=== PATIENT | female | born 2005 | race Caucasian/White ===

== ENCOUNTER → 2023-11-15 | Emergency (ER) | payer SELFPAY ==
[~2023-11-15] MED LIST: KETOROLAC 30 MG/ML INJ ONE; NA CHLORIDE 0.9% 1,000 ML ONE; ONDANSETRON 4 MG/2 ML VIAL ONE
[2023-11-15 13:26] LABS: Absolute Lymphocytes (CBC) 3.1 K/uL (0.7-4.9); Hematocrit 41.6 % (36.0-45.0); Lymphocytes % 28.5 % (15.3-44.8); MCV 82.5 fL (80-100); MPV 7.2 fL (7.6-11.3); Platelets 426 thou/uL (152-406); RBC Red Blood Cell Count 5.04 M/uL (3.86-4.86)
[2023-11-15 13:29] LABS: Specific Gravity 1.028 (1.005-1.030)
[2023-11-15 13:31] LABS: Specific Gravity 1.028 (1.005-1.030); Urine Bacteria <20 /HPF (<20); Urine Bilirubin NEGATIVE (Negative); Urine Blood Negative (Negative); Urine Clarity Extremely Turbid (Clear); Urine Color Yellow (Yellow); Urine Glucose NEGATIVE (Negative); Urine Mucus Slight /HPF (None Seen); Urine Protein TRACE (Negative); Urine RBC <5 /HPF (None Seen); Urine Urobilinogen Normal (Normal); Urine pH 5.5 (5.0-7.0)
[2023-11-15 13:52] LABS: Albumin 3.1 g/dL (3.4-5.0); Bilirubin Total 0.9 mg/dL (0.2-1.0); Potassium 3.5 mEq/L (3.5-5.1); Protein, Total 7.1 g/dL (6.4-8.2)
--- NOTE | 2023-11-15 15:17 | RAD REPORT ---
EXAM DESCRIPTION: US - Transvaginal OB - 11/15/2023 2:01 pm CLINICAL HISTORY: with vaginal bleeding COMPARISON: None. FINDINGS: The uterus is retroverted and measures 6 x 4 x 4 centimeters. 10 millimeter gestational sac. Yolk sac seen. Foetal pole nonvisualized Ovaries are normal in size and echotexture.. The right and left adnexa unremarkable No significant free fluid IMPRESSION: Intrauterine with an estimated gestational age 5 weeks 5 days LESLIE 07/12/2024. pole not visualized probably secondary to the early gestation. Follow-up endovaginal sonogram i n 1 week would be helpful for re-evaluation
--- NOTE | 2023-11-15 18:08 | ER ---
Nurse's Notes [facility] Name: Corrie Florian Age: 18 yrs Sex: Female : 2005 Arrival Date: 11/15/2023 Time: 12:50 Bed 20 Private MD: Diagnosis: Less than 8 weeks gestation of Presentation: 11/15 12:59 Chief complaint: Patient states: Abdominal pain with N/V started Monday night. No ll1 fever. Coronavirus screen: Vaccine status: Patient reports receiving the 2nd dose of the covid vaccine. Client denies travel out of the [place] in the last 14 days. diarrhea, fatigue, headache, nausea, vomiting. Ebola Screen: Patient denies travel to an Ebola-affected area in the 21 days before illness onset. Initial Sepsis Screen: Does the patient meet any 2 criteria? No. Patient's initial sepsis screen is negative. Does the patient have a suspected source of infection? No. Patient's initial sepsis screen is negative. Risk Assessment: Do you want to hurt yourself or someone else? Patient reports no desire to harm self or others. Onset of symptoms was November 13, 2023. 12:59 Method Of Arrival: Ambulatory 1 12:59 Acuity: RADHA 3 ll1 Triage Assessment: 12:59 General: Appears uncomfortable, ill, Behavior is calm, cooperative, appropriate for 1 age. Pain: Complains of pain in abdomen Quality of pain is described as aching, crampy. GI: Reports lower abdominal pain, cramping, nausea, vomiting. Historical: - Allergies: 12:58 Amoxicillin; ll1 12:58 nasal spray-unkown; ll1 - PMHx: 12:58 None; ll1 - PSHx: 12:58 Tonsillectomy; septum repair; ll1 - Immunization history:: Adult Immunizations up to date. - Social history:: Smoking status: Patient denies any tobacco usage or history of. Screenin:28 [facility] ED Fall Risk Assessment (Adult) History of falling in the last 3 months, db including since admission No falls in past 3 months (0 pts) Confusion or Disorientation No (0 pts) Intoxicated or Sedated No (0 pts) Impaired Gait No (0 pts) Mobility Assist Device Used No (0 pt) Altered Elimination No (0 pt) Score/Fall Risk Level 0 - 2 = Low Risk Oriented to surroundings, Maintained a safe environment. Abuse screen: Denies threats or abuse. Denies injuries from another. Nutritional screening: No deficits noted. Tuberculosis screening: No symptoms or risk factors identified. Assessment: 13:26 Reassessment: Patient appears in no apparent distress at this time. Patient and/or db family updated on plan of care and expected duration. Pain level reassessed. Patient is alert, oriented x 3, equal unlabored respirations, skin warm/dry/pink. PATIENT COMPLAINS OF LOWER ABDOMINAL CRAMPING STARTED YESTERDAY. TOOK TYLENOL. General: Appears in no apparent distress. comfortable, Behavior is calm, cooperative. Pain: Complains of pain in left lower quadrant and right lower quadrant. Neuro: Level of Consciousness is awake, alert, obeys commands, Oriented to person, place, time, situation. Respiratory: Airway is patent Respiratory effort is even, unlabored, Respiratory pattern is regular, symmetrical. GI: Bowel sounds present X 4 quads. Abd is soft Abd is non tender. 14:28 Reassessment: No changes from previously documented assessment. Patient and/or family ll1 updated on plan of care and expected duration. Pain level reassessed. Vital Signs: 12:59 BP 133 / 87; Pulse 99; Resp 17; Temp 98.2; Pulse Ox 100% ; Weight 90.72 kg; Height 5 ll1 ft. 3 in. ; Pain 5/10; 15:15 BP 121 / 67; Pulse 81; Resp 16; Pulse Ox 100% ; nj1 16:15 BP 110 / 68; Pulse 71; Resp 16; Pulse Ox 99% on R/A; nj1 17:30 BP 122 / 68; Pulse 76; Resp 17; Pulse Ox 99% ; nj1 12:59 Body Mass Index 35.43 (90.72 kg, 160.02 cm) ll1 12:59 Pain Scale: Adult ll1 ED Course: 12:54 Patient arrived in ED. mg5 12:56 Daly Montano FNP-C is [facility]. kb 12:56 Kd Arguello MD is Attending Physician. kb 13:01 Triage completed. ll1 13:01 Arm band placed on. ll1 13:17 Initial lab(s) drawn, by me, sent to lab. Inserted saline lock: 20 gauge in left aw1 antecubital area, using aseptic technique. 13:20 CBC with Diff Sent. aw1 13:20 CMP Sent. aw1 13:20 Lipase Sent. aw1 13:20 Test, Urine Sent. aw1 13:20 Urinalysis w/ reflexes Sent. aw1 13:24 Barbara Oleary, RN is Primary Nurse. db 13:27 Patient has correct armband on for positive identification. db 14:03 US Transvaginal Ob In Process Unspecified. EDMS 14:28 Patient placed in an exam room, on a stretcher. ll1 16:55 IV discontinued, intact, bleeding controlled, No redness/swelling at site. Pressure aw1 dressing applied. Inserted saline lock: 22 gauge in right antecubital area, using aseptic technique. 18:08 Kd Arguello MD is Referral Physician. kb 18:15 Provided Education on: discharge instructions. nj1 18:15 No provider procedures requiring assistance completed. nj1 18:15 IV discontinued, intact, bleeding controlled. nj1 Administered Medications: 13:20 Drug: NS 0.9% IV 1000 ml IV at 1 bolus Per protocol; 1000 mL bolus Route: IV; Rate: 1 db bolus; Site: right antecubital; 14:31 Follow up: Response: No adverse reaction; IV Status: Completed infusion; IV Intake: ll1 1000ml 13:20 Drug: TORadol - Ketorolac IVP 15 mg IVP once Route: IVP; Site: right antecubital; db 14:31 Follow up: Response: No adverse reaction ll1 13:20 Drug: Ondansetron IVP 4 mg IVP once; over 2 minutes Route: IVP; Site: right antecubital;db 14:31 Follow up: Response: No adverse reaction ll1 Medication: 18:15 VIS not applicable for this client. nj1 Intake: 14:31 IV: 1000ml; Total: 1000ml. ll1 Outcome: 18:08 Discharge ordered by . kb 18:15 Discharged to home ambulatory, nj1 18:15 Condition: stable 18:15 Discharge instructions given to patient, Instructed on discharge instructions, follow up and referral plans. Demonstrated understanding of instructions, follow-up care, 18:41 Patient left the ED. nj1 Signatures: Dispatcher [employer] EDGA Daly Montano, PROOF MACHINE OPERATOR SUPERVISOR-C PROOF MACHINE OPERATOR SUPERVISOR-Lisa Cedillo RN RN ll1 Barbara Oleary, RN RN db Bhakti Bonds, RN RN nj1 Robinson, Arina [email or web address] Rin Escalante mg5
--- NOTE | 2023-11-15 18:08 | EDPHYS ---
Physician Documentation [facility] Name: Corrie Florian Age: 18 yrs Sex: Female : 2005 Arrival Date: 11/15/2023 Time: 12:50 Bed 20 Private MD: ED Physician Kd Arguello HPI: 11/15 13:26 This 18 yrs old Female presents to ER via Ambulatory with complaints of Abdominal kb Cramping. 13:26 Pt is a 18 year old female who presents for lower abd cramping that has been kb intermittent for about a month, then pain became more severe and constant last night. Reports nausea and diarrhea. Denies fever. States she had one episode of vomiting 3 days ago. Denies urinary symptoms, vaginal bleeding/discharge. . Historical: - Allergies: 12:58 Amoxicillin; ll1 12:58 nasal spray-unkown; ll1 - PMHx: 12:58 None; ll1 - PSHx: 12:58 Tonsillectomy; septum repair; ll1 - Immunization history:: Adult Immunizations up to date. - Social history:: Smoking status: Patient denies any tobacco usage or history of. ROS: 13:10 Constitutional: Negative for fever, chills, and weight loss, kb 13:10 Abdomen/GI: Positive for abdominal pain, nausea, diarrhea, 13:10 All other systems are negative, Exam: 13:10 Constitutional: This is a well developed, well nourished patient who is awake, alert, kb and in no acute distress. Head/Face: Normocephalic, atraumatic. ENT: Moist Mucous membranes Cardiovascular: Regular rate Respiratory: Respirations even and unlabored. No increased work of breathing. Talking in full sentences Skin: Warm, dry with normal turgor. Normal color. MS/ Extremity: Pulses equal, no cyanosis. Neurovascular intact. Full, normal range of motion. Neuro: Awake and alert, GCS 15, oriented to person, place, time, and situation. Moves all extremities. Normal gait. 13:10 Abdomen/GI: Inspection: abdomen appears normal, Bowel sounds: normal, Palpation: soft, in all quadrants, mild abdominal tenderness, in the suprapubic area, right lower quadrant and left lower quadrant, Vital Signs: 12:59 BP 133 / 87; Pulse 99; Resp 17; Temp 98.2; Pulse Ox 100% ; Weight 90.72 kg; Height 5 ll1 ft. 3 in. ; Pain 5/10; 15:15 BP 121 / 67; Pulse 81; Resp 16; Pulse Ox 100% ; nj1 16:15 BP 110 / 68; Pulse 71; Resp 16; Pulse Ox 99% on R/A; nj1 17:30 BP 122 / 68; Pulse 76; Resp 17; Pulse Ox 99% ; nj1 12:59 Body Mass Index 35.43 (90.72 kg, 160.02 cm) ll1 12:59 Pain Scale: Adult ll1 MDM: 13:02 Patient medically screened. kb 13:10 Data reviewed: vital signs, nurses notes. kb 13:41 ED course: Toradol given prior to urine result. Pt had stated there was no kb chance of during initial exam. Pt educated on positive result, CT cancelled and US ordered. . 18:08 Differential diagnosis: non-specific abd pain, urinary tract infection, . kb Counseling: I had a detailed discussion with the patient and/or guardian regarding the historical points, exam findings, and any diagnostic results supporting the discharge/admit diagnosis, lab results, radiology results, the need for outpatient follow up, an OB/Gyne specialist, to return to the emergency department if symptoms worsen or persist or if there are any questions or concerns that arise at home. 11/15 13:05 Order name: CBC with Diff; Complete Time: 13:27 [place] 11/15 13:05 Order name: CMP; Complete Time: 13:53 [place] 11/15 13:05 Order name: Lipase; Complete Time: 13:53 [place] 11/15 13:05 Order name: Test, Urine; Complete Time: 13:32 [place] 11/15 13:05 Order name: Urinalysis w/ reflexes; Complete Time: 13:43 [place] 11/15 13:34 Order name: Abo/rh Typing; Complete Time: 17:40 kb 11/15 13:34 Order name: Quantitative Hcg; Complete Time: 17:54 kb 11/15 13:44 Order name: Urine Culture EDWV 11/15 13:34 Order name: US Transvaginal Ob; Complete Time: 15:19 kb 11/15 13:05 Order name: IV Saline Lock; Complete Time: 13:19 1 01/10 13:05 Order name: Labs collected and sent; Complete Time: 13:20 ll1 Administered Medications: 13:20 Drug: NS 0.9% IV 1000 ml IV at 1 bolus Per protocol; 1000 mL bolus Route: IV; Rate: 1 db bolus; Site: right antecubital; 14:31 Follow up: Response: No adverse reaction; IV Status: Completed infusion; IV Intake: ll1 1000ml 13:20 Drug: TORadol - Ketorolac IVP 15 mg IVP once Route: IVP; Site: right antecubital; db 14:31 Follow up: Response: No adverse reaction ll1 13:20 Drug: Ondansetron IVP 4 mg IVP once; over 2 minutes Route: IVP; Site: right antecubital;db 14:31 Follow up: Response: No adverse reaction ll1 Disposition: 11/16 06:58 Co-signature as Attending Physician, Kd Arguello MD I reviewed the patient's care rn provided by the Advanced Practice Provider and agree with the diagnosis and treatment plan. Disposition Summary: 11/15/23 18:08 Discharge Ordered Notes: Location: Home kb Condition: Stable kb Diagnosis - Less than 8 weeks gestation of kb Followup: kb - With: Emergency Department - When: As needed - Reason: Worsening of condition Followup: kb - With: Private Physician - When: 2 - 3 days - Reason: Recheck today's complaints, Continuance of care, Re-evaluation by your physician Discharge Instructions: - Discharge Summary Sheet kb - First Trimester of , [id number] kb Forms: - Medication Reconciliation Form kb - Thank You Letter kb - Antibiotic Education kb - Prescription Opioid Use kb - Patient Portal Instructions kb - Leadership Thank You Letter kb Signatures: Dispatcher [employer] Daly De León, METAL FABRICATOR APPRENTICE-C METAL FABRICATOR APPRENTICE-Ckb Kd Arguello MD MD rn Lewis, Lynsay, RN RN ll1 Barbara Oleary, JESSE RN db Corrections: (The following items were deleted from the chart) 11/15 14:04 13:05 Abdomen Pelvis W Con+[id number].[id number] ordered. EDWV EDMS
[2023-11-15 22:09] VITALS: TEMP 98.2; O2SAT 99
[2023-11-15 22:22] VITALS: BP 122/68
== END ==
LOC: ER 12:50
DX: O26.891 Other specified pregnancy related conditions, first trimester (principal); Z3A.01 Less than 8 weeks gestation of pregnancy
CPT/HCPCS: 36415; 76817; 80053; 81001; 81025; 83690; 84702; 85025; 86900; 86901; 87086; 87088; J2405; J7030

== ENCOUNTER 2024-09-05 12:01 | Emergency (ER) | payer OTHER ==
--- OUTSIDE RECORDS SUMMARY | 2024-09-05 12:04 | XMS REPORT | Continuity of Care Document ---
Author Name Unknown Address [address] [facility] [address] [place] [address] [facility] [address] [facility] [address] [place] [address] Care Team Providers Care Safemaker Name Role Phone Pcp, Patient Does Not Have A Primary Care Physic ki JOCELYN YEBOAH Attending Clinician Unavailable JOCELYN YEBOAH Attending Clinician Unavailable Jocelyn Yeboah MD Attending Clinician [phone] Sergey Rivers MD Attending Clinician [phone], [facility] Attending Clinician Unavailable DORYS LEMON Attending Clinician Unavailable Doctor Unassigned, [place] Attending Clinician U TRACY Gleason Attending Clinician Unavailable TRACY QUINONES Attending Clinician Unavailable 2, [facility] Room Attending Clinician UnavailTracy Florence MD Attending Clinician [phone] Lab, Ang - Db Attending Clinician Unavailable Ultrasound, Ang-Mfm Attending Clinician Unavaila ble AMY CARDENAS Attending Clinician Unavailable AMY CARDENAS Attending Clinician Unavailable JOCELYN YEBOAH Admitting Clinician Unavailable Jocelyn Yeboah MD Admitting Clinician [phone] Payers Payer Name Policy Type Policy Number Effective Date Expirati on Date Source [facility] [id number] 2024 00:00:00 [place] [id number] 2023 00:00:00 Problems Condition Name Condition Details Condition Category Status Onset Date Resolution Date Last Treatment Date Treating Clinician Comments Source Uterine contractio ns Uterine contractio ns Disease Active 2024-0 8-28 00:00: 00 [facility] Morbid obesity with body mass index of 40.0-49.9 Morbid obesity with body mass index of 40.0-49.9 Disease Resolve d 2023-0 8-28 00:00: 00 2024-08-13 00:00:00 2024-08-13 16:05:34 [facility] Liveborn infant, of [place] , born in hospital by vaginal delivery Liveborn , of [place] , born in hospital by vaginal delivery Disease Resolve d 2023-0 8-28 00:00: 00 2024-08-13 00:00:00 2024-08-13 15:58:53 [facility] 38 weeks gestation of 38 weeks gestation of Disease Resolve d 0 2-07 00:00: 00 2024-08-13 00:00:00 2024-08-13 15:58:53 [facility] Other obesity affecting in first trimester Other obesity affecting in first trimester Disease Resolve d 0 2-07 00:00: 00 2024-08-13 00:00:00 2024-08-13 16:05:35 [facility] High-risk in first trimester High-risk in first trimester Disease Resolve d 0 2-07 00:00: 00 2024-06-18 00:00:00 2024-06-18 09:27:10 [facility] 9 weeks gestation of 9 weeks gestation of Disease Resolve d 0 2-07 00:00: 00 2024-06-04 00:00:00 2024-06-04 13:52:45 [facility] BMI 37.0-37.9, adult BMI 37.0-37.9, adult Disease Resolve d 2-07 00:00: 00 2024-06-04 00:00:00 2024-06-04 13:52:52 [facility] Allergies, Adverse Reactions, Alerts Allergy Name Allergy Type Status Severity Reaction(s) Onset Date Inactive Date Treating Clinician Comments Source AMOXICIL JOZEF DRUG INGREDI Active Other-Cmnt 2-07 00:00: 00 [facility] CAT DANDER DRUG INGREDI Active ITCHING 2023-0 2-07 00:00: 00 [facility] DOG DANDER DRUG INGREDI Active ITCHING 2023-0 2-07 00:00: 00 [facility] FLUTICAS ONE FUROATE DRUG INGREDI Active Other-Cmnt 2023-0 2-07 00:00: 00 [facility] HOUSE DUST DRUG INGREDI Active ITCHING 2023-0 2-07 00:00: 00 [facility] IBUPROFE N DRUG INGREDI Active Other-Cmnt 2023-0 2-07 00:00: 00 [facility] POLLEN EXTRACTS DRUG INGREDI Active ITCHING 2023-0 2-07 00:00: 00 [facility] Amoxicil jozef Drug Allergy Active Other - See comments 2023-0 2- 00:00: 00 [facility] Cat Dander Drug Allergy Active Rash 2023-0 2-07 00:00: 00 [facility] Dog Dander Drug Allergy Active Rash 2023-0 2-07 00:00: 00 [facility] Fluticas one Furoate Drug Allergy Active Other - See comments 2023-0 2-07 00:00: 00 [facility] House Dust Drug Allergy Active Itching 2023-0 2-07 00:00: 00 [facility] Ibuprofe n Drug Allergy Active Other - See comments 2023-0 2-07 00:00: 00 [facility] Pollen Extracts Drug Allergy Active Rash 2023-0 2-07 00:00: 00 [facility] NO KNOWN ALLERGIE S Drug Class Active [facility] [place] [place] Social History Social Habit Start Date Stop Date Quantity Comments Source ASSERTION 2023-10-22 00:00:00 [facility] [place] [place] Alcoholic beverage intake 2024-07-05 00:00:00 2024-07-05 00:00:00 Ex-drinker (finding) [facility] Tobacco use and exposure 2024-07-05 00:00:00 2024-07-05 00:00:00 Smokeless tobacco non-user [facility] History of Social function 2024-07-02 00:00:00 2024-07-02 00:00:00 [facility] Alcohol intake 2024-03-06 00:00:00 2024-03-06 00:00:00 Ex-drinker (finding) [facility] Sex assigned at 2005 00:00:00 2005 00:00:00 [facility] Smoking Status Start Date Stop Date Source Tobacco smoking consumption unknown [facility] Never smoked tobacco [facility] Medications Ordered Medication Name Filled Medication Name Start Date Stop Date Current Medication? Ordering Clinician Indication Dosage Frequency Signature (SIG) Comments Components Source norethindro ne 0.35 mg tablet 2023-11 00:00: 00 Yes [id number] 1{tbl} Take 1 tablet by mouth in the morning. [facility] vitamin w/FA tablet 07-05 00:00: 00 Yes [id number] 102 1{tbl} Take 1 tablet by mouth in the morning. [facility] witch Bowen (TUCKS) 50 % topical pad 07-04 13:34: 34 Yes Topical, PRN, Starting on Mon07/04/24 at 0834, Until Discontinu ed, Routine, Pain (scale 1-3), Pain (scale 4-6), Pain (scale 7-10) [facility] HYDROcodone -acetaminop hen (NORCO 5) tablet 1 tablet 07-04 04:57: 40 Yes 1{tbl} 1 tablet, Oral, Q6HPRN, Starting on Mon07/03/24 at 2357, Until Discontinu ed, Routine, Pain (scale 7-10) [facility] acetaminoph en (TYLENOL) tablet 650 mg 07-04 04:57: 40 Yes 650mg 650 mg, Oral, Q6HPRN, Starting on Mon07/03/24 at 2357, Until Discontinu ed, Routine, Pain (scale 1-3) [facility] diphenhydrA MINE (BENADRYL) tablet 25 mg 07-04 04:57: 40 Yes 25mg [facility] ondansetron (ZOFRAN (PF)) injection 4 mg 07-04 04:57: 40 Yes 4mg [facility] simethicone (GAS RELIEF (SIMETHICON E)) chewable tablet 160 mg 07-04 04:57: 40 Yes 160mg [facility] docusate (COLACE) capsule 200 mg 07-04 04:57: 40 Yes 200mg [facility] magnesium hydroxide (MILK OF MAGNESIA) 400 mg/5 mL suspension 30 mL 07-04 04:57: 40 Yes 30mL [facility] benzocaine- menthol (DERMOPLAST ) 20-0.5 % topical spray 07-04 04:57: 39 Yes Topical, PRN, Starting on Mon07/03/24 at 2357, Until Discontinu ed, Routine, Perineum discomfort [facility] [place] [place] fentaNYL-ro pivacaine 2 mcg/mL-0.1 % (PF) in NS 200 mL epidural infusion RTU 07-04 01:48: 00 07-04 11:19 :28 No Intra-op [facility] [place] [place] FENTanyl (PF) (SUBLIMAZE) injection 100 mcg 07-04 00:25: 59 07-04 05:03 :17 No 100ug 100 mcg, Slow IV Push, Q1HPRN, Starting on Mon07/03/24 at 1925, Until Bekah 07/04/24 at 0003, Routine, Pain (scale 7-10) [facility] [place] oxytocin (PITOCIN) 30 units in NS 500 mL IV infusion 07-04 00:25: 59 07-04 05:03 :17 No 2mU/min at 2-40 mL/hr, IV Infusion, TITRATE, Starting on Mon07/03/24 at 1925, Until Bekah 07/04/24 at 0003, Routine [facility] [place] D5W-LR IV infusion 1,000 mL 07-04 00:25: 59 07-04 05:03 :17 No 1000mL at 1-125 mL/hr, IV Infusion, TITRATE, Starting on Mon07/03/24 at 1925, Until Bekah 07/04/24 at 0003, Routine [facility] vit no.124/iron /folic ( VITAMIN ORAL) 04-29 09:10: 46 04-29 00:00 :00 No Take by mouth. [facility] vitamin w/FA tablet 04-29 00:00: 00 07-05 00:00 :00 No 1{tbl} Take 1 tablet by mouth in the morning. [facility] vit no.124/iron /folic ( VITAMIN ORAL) 04-03 15:55: 20 Yes Take by mouth. [facility] vit no.124/iron /folic ( VITAMIN ORAL) 01-09 11:06: 21 Yes Take by mouth. [facility] Immunizations Ordered Immunization Name Filled Immunization Name Date Status Comments Source TDAP 2024-05-01 00:00:00 Completed [facility] TDAP 2024-05-01 00:00:00 Completed [facility] TDAP Unknown Completed [facility] TDAP Unknown Completed [facility] TDAP Unknown Completed [facility] TDAP Unknown Completed [facility] TDAP Unknown Completed [facility] TDAP Unknown Completed [facility] TDAP Unknown Completed [facility] TDAP Unknown Completed [facility] TDAP Unknown Completed [facility] TDAP Unknown Completed [facility] Vital Signs Vital Name Observation Time Observation Value Comments S ource Systolic blood pressure 2024-08-13 20:45:00 110 mm[Hg] [facility] Diastolic blood pressure 2024-08-13 20:45:00 69 mm[Hg] [facility] Heart rate 2024-08-13 20:45:00 75 /min [facility] Body temperature 2024-08-13 20:45:00 36.61 [place] [facility] Respiratory rate 2024-08-13 20:45:00 18 /min [facility] Body height 2024-08-13 20:45:00 162.6 cm [facility] Body weight 2024-08-13 20:45:00 99.292 kg [facility] BMI 2024-08-13 20:45:00 37.57 kg/m2 [facility] Systolic blood pressure 2024-07-05 14:45:00 111 mm[Hg] [facility] Diastolic blood pressure 2024-07-05 14:45:00 67 mm[Hg] [facility] Heart rate 2024-07-05 14:45:00 90 /min [facility] Body temperature 2024-07-05 14:45:00 36.56 [place] [facility] Respiratory rate 2024-07-05 14:45:00 16 /min [facility] Oxygen saturation in Arterial blood by Pulse oximetry 2024-07-05 14:45:00 98 /min [facility] Body weight 2024-07-04 00:00:00 106.142 kg [facility] BMI 2024-07-04 00:00:00 40.17 kg/m2 [facility] Body height 2024-07-03 23:49:00 162.6 cm [facility] Systolic blood pressure 2024-07-02 20:40:00 111 mm[Hg] [facility] Diastolic blood pressure 2024-07-02 20:40:00 76 mm[Hg] [facility] Heart rate 2024-07-02 20:40:00 90 /min [facility] Body temperature 2024-07-02 20:40:00 36.44 [place] [facility] Respiratory rate 2024-07-02 20:40:00 18 /min [facility] Body height 2024-07-02 20:40:00 160 cm [facility] Body weight 2024-07-02 20:40:00 107.321 kg [facility] BMI 2024-07-02 20:40:00 41.91 kg/m2 [facility] Systolic blood pressure 2024-06-25 21:31:00 115 mm[Hg] [facility] Diastolic blood pressure 2024-06-25 21:31:00 85 mm[Hg] [facility] Heart rate 2024-06-25 21:31:00 108 /min [facility] Respiratory rate 2024-06-25 21:31:00 17 /min [facility] Body height 2024-06-25 21:31:00 160 cm [facility] Body weight 2024-06-25 21:31:00 107.049 kg [facility] BMI 2024-06-25 21:31:00 41.81 kg/m2 [facility] Systolic blood pressure 2024-06-18 13:31:00 126 mm[Hg] [facility] Diastolic blood pressure 2024-06-18 13:31:00 85 mm[Hg] [facility] Heart rate 2024-06-18 13:31:00 103 /min [facility] Body temperature 2024-06-18 13:31:00 36.17 [place] [facility] Respiratory rate 2024-06-18 13:31:00 18 /min [facility] Body height 2024-06-18 13:31:00 162.6 cm [facility] Body weight 2024-06-18 13:31:00 105.688 kg [facility] BMI 2024-06-18 13:31:00 39.99 kg/m2 [facility] Systolic blood pressure 2024-06-04 16:01:00 113 mm[Hg] [facility] Diastolic blood pressure 2024-06-04 16:01:00 78 mm[Hg] [facility] Heart rate 2024-06-04 16:01:00 104 /min [facility] Body temperature 2024-06-04 16:01:00 36.22 [place] [facility] Body weight 2024-06-04 16:01:00 105.597 kg [facility] BMI 2024-06-04 16:01:00 39.96 kg/m2 [facility] Systolic blood pressure 2024-05-21 14:01:00 117 mm[Hg] [facility] Diastolic blood pressure 2024-05-21 14:01:00 80 mm[Hg] [facility] Heart rate 2024-05-21 14:01:00 112 /min [facility] Body temperature 2024-05-21 14:01:00 36.61 [place] [facility] Respiratory rate 2024-05-21 14:01:00 16 /min [facility] Body height 2024-05-21 14:01:00 162.6 cm [facility] Body weight 2024-05-21 14:01:00 103.602 kg Univ [facility] BMI 2024-05-21 14:01:00 39.20 kg/m2 [facility] Oxygen saturation in Arterial blood by Pulse oximetry 2024-05-21 14:01:00 99 /min [facility] Systolic blood pressure 2024-05-01 14:09:00 116 mm[Hg] [facility] Diastolic blood pressure 2024-05-01 14:09:00 81 mm[Hg] [facility] Heart rate 2024-05-01 14:09:00 97 /min [facility] Respiratory rate 2024-05-01 14:09:00 15 /min [facility] Body height 2024-05-01 14:09:00 160 cm [facility] Body weight 2024-05-01 14:09:00 102.105 kg [facility] BMI 2024-05-01 14:09:00 39.87 kg/m2 [facility] Systolic blood pressure 2024-04-03 21:02:00 112 mm[Hg] [facility] Diastolic blood pressure 2024-04-03 21:02:00 77 mm[Hg] [facility] Heart rate 2024-04-03 21:02:00 94 /min [facility] Respiratory rate 2024-04-03 21:02:00 18 /min [facility] Body height 2024-04-03 21:02:00 160 cm [facility] Body weight 2024-04-03 21:02:00 101.606 kg [facility] BMI 2024-04-03 21:02:00 39.68 kg/m2 [facility] Systolic blood pressure 2024-03-06 16:12:00 117 mm[Hg] [facility] Diastolic blood pressure 2024-03-06 16:12:00 83 mm[Hg] [facility] Heart rate 2024-03-06 16:12:00 94 /min [facility] Body temperature 2024-03-06 16:12:00 36.56 [place] [facility] Respiratory rate 2024-03-06 16:12:00 16 /min [facility] Body height 2024-03-06 16:12:00 160 cm [facility] Body weight 2024-03-06 16:12:00 100.699 kg [facility] BMI 2024-03-06 16:12:00 39.33 kg/m2 [facility] Systolic blood pressure 2024-02-07 15:57:00 106 mm[Hg] [facility] Diastolic blood pressure 2024-02-07 15:57:00 66 mm[Hg] [facility] Heart rate 2024-02-07 15:57:00 94 /min [facility] Body temperature 2024-02-07 15:57:00 36.72 [place] [facility] Respiratory rate 2024-02-07 15:57:00 16 /min [facility] Body height 2024-02-07 15:57:00 160 cm [facility] Body weight 2024-02-07 15:57:00 98.431 kg [facility] BMI 2024-02-07 15:57:00 38.44 kg/m2 [facility] Body weight 2024-01-10 17:05:00 95.907 kg [facility] BMI 2024-01-10 17:05:00 37.45 kg/m2 [facility] Systolic blood pressure 2024-01-10 17:05:00 93 mm[Hg] [facility] Diastolic blood pressure 2024-01-10 17:05:00 68 mm[Hg] [facility] Heart rate 2024-01-10 17:05:00 93 /min [facility] Body temperature 2024-01-10 17:05:00 36.89 [place] [facility] Respiratory rate 2024-01-10 17:05:00 16 /min [facility] Body height 2024-01-10 17:05:00 160 cm [facility] Systolic blood pressure 2023-12-13 20:40:00 96 mm[Hg] [facility] Diastolic blood pressure 2023-12-13 20:40:00 66 mm[Hg] [facility] Heart rate 2023-12-13 20:40:00 87 /min [facility] Body temperature 2023-12-13 20:40:00 36.78 [place] [facility] Respiratory rate 2023-12-13 20:40:00 16 /min [facility] Body height 2023-12-13 20:40:00 160 cm [facility] Body weight 2023-12-13 20:40:00 95.8 kg [facility] BMI 2023-12-13 20:40:00 37.41 kg/m2 [facility] Oxygen saturation in Arterial blood by Pulse oximetry 2023-12-13 20:40:00 97 /min [facility] Procedures Procedure Date / Time Performed Performing Clinician Source POCT TEST 2024-08-13 00:00:00 Adum, Jocelyn Hernadez [facility] CBC WITH DIFF 2024-07-04 09:12:00 Adum, Jocelyn Maria [facility] CENTRAL NEURAXIAL BLOCK 2024-07-04 02:45:00 Sergey Rivers [facility] CBC WITH DIFF 2024-07-04 00:47:00 Adum, Jocelyn Hernadez [facility] HEPATITIS B SURFACE ANTIGEN 2024-07-04 00:47:00 Adum, Jocelyn Hernadez [facility] HB ABO GROUPING 2024-07-04 00:47:00 Adum, Jocelyn Lazar [facility] ADC OR CAITLIN ONLY - RPR 2024-07-04 00:47:00 Adum, Jocelyn Hernadez [facility] HIV 1/2 AG-AB WITH REFLEX 2024-07-04 00:47:00 Adum, Jocelyn Hernadez [facility] POCT URINALYSIS W/O SPECIFIC GRAVITY 2024-07-02 00:00:00 Adum, Jocelyn Hernadez [facility] POCT URINALYSIS W/O SPECIFIC GRAVITY 2024-06-25 00:00:00 Adum, Jocelyn Hernadez [facility] >14 WEEKS US LIMITED 2024-06-18 14:31:28 Adum, Jocelyn Hernadez [facility] POCT URINALYSIS W/O SPECIFIC GRAVITY 2024-06-18 00:00:00 Adum, Jocelyn Hernadez [facility] POCT URINALYSIS W/O SPECIFIC GRAVITY 2024-06-04 00:00:00 Dorys Lemon [facility] POCT URINALYSIS W/O SPECIFIC GRAVITY 2024-05-21 00:00:00 Adum, Jocelyn Hernadez [facility] TDAP VACCINE, >11 YRS, IM 2024-05-01 14:19:11 Adum, Jocelyn Hernadez [facility] POCT URINALYSIS W/O SPECIFIC GRAVITY 2024-05-01 00:00:00 Adum, Jocelyn Hernadez [facility] SECOND AND THIRD TRIMESTER ULTRASOUND 2024-04-08 18:29:00 Adum, Jocelyn Hernadez [facility] POCT URINALYSIS W/O SPECIFIC GRAVITY 2024-04-03 00:00:00 Adum, Jocelyn Hernadez [facility] SECOND AND THIRD TRIMESTER ULTRASOUND 2024-03-08 15:08:25 Adum, Jocelyn Hernadez [facility] POCT URINALYSIS W/O SPECIFIC GRAVITY 2024-03-06 00:00:00 Adum, Jocelyn Hernadez [facility] POCT URINALYSIS W/O SPECIFIC GRAVITY 2024-02-07 00:00:00 Adum, Jocelyn Hernadez [facility] SCANNED LAB RESULTS 2024-01-10 06:01:00 Doctor Julia ruelas, [place] [facility] POCT URINALYSIS W/O SPECIFIC GRAVITY 2024-01-10 00:00:00 Adum, Jocelyn Hernadez [facility] US OB TRANSVAGINAL 2023-12-13 21:35:07 Adum, Jocelyn L [facility] ASSIGNMENT OF BENEFITS 2023-12-13 20:14:13 Docto r Unassigned, [place] [facility] POCT TEST 2023-12-13 00:00:00 Obinna Jocelyn Satya [facility] POCT URINALYSIS W/O SPECIFIC GRAVITY 2023-12-13 00:00:00 Obinna Jocelyn L [facility] Encounters Start Date/Time End Date/Time Encounter Type Admission Type Attending [facility] Facility Care Department Encounter ID Source 2024-07-02 16:37:02 Outpatient P ADJOCELYN MEADE [facility] YELITZA [id number] [facility] 2024-07-24 00:00:00 2024-08-24 18:21:35 Patient Secure Msg Jocelyn Yeboah [facility] [id number] 350.1.13.10 4.2.7.2.686 [id number] 134 [id number] [facility] 2024-08-13 16:00:00 2024-08-13 16:17:33 Outpatient R ADJOCELYN MEADE [facility] [id number] [facility] 2024-08-13 16:00:00 2024-08-13 16:17:33 Routine Visit Obinna Jocelyn Hernadez [facility] 1..840.114 350.1.13.10 4.2.7.2.686 [id number] [facility] 2024-06-27 00:00:00 2024-08-03 18:28:28 Patient Secure Msg Jocelyn Yeboah [facility] [id number] 350.1.13.10 4.2.7.2.686 [id number] 134 [id number] [facility] 2024-07-03 18:50:00 2024-07-05 12:25:00 Inpatient X ADJOCELYN MEADE [facility] YELITZA [id number] [facility] 2024-07-03 18:50:00 2024-07-05 12:25:00 Hospital Encounter Jocelyn Yeboah [facility] [id number] 350.1.13.10 4.2.7.2.686 [id number] [facility] 2024-07-03 00:00:00 2024-07-04 07:48:22 Patient Secure Msg AdJocelyn [facility] 1.2840.114 350.1.13.10 4.2.7.2.686 [id number] 134 [id number] [facility] 2024-07-03 20:40:00 2024-07-04 01:19:00 Anesthesia Event Sergey Rivers [facility] [id number] 350.1.13.10 4.2.7.2.686 [id number] [facility] 2024-07-02 15:30:00 2024-07-02 16:13:51 Outpatient R ADJOCELYN MEADE [facility] [id number] [facility] 2024-07-02 15:30:00 2024-07-02 16:13:51 [facility] 1.2840.114 350.1.13.10 4.2.7.2.686 [id number] [facility] 2024-06-25 16:15:00 2024-06-25 16:52:19 Outpatient R JOCELYN YEBOAH [facility] [id number] [facility] 2024-06-25 16:15:00 2024-06-25 16:52:19 [facility] 1.2840.114 350.1.13.10 4.2.7.2.686 [id number] [facility] 2024-06-18 13:00:00 2024-06-18 13:00:00 Outpatient R JOCELYN YEBOAH VIVIAN [facility] [id number] [facility] 2024-06-18 09:30:00 2024-06-18 09:45:00 Occupational Health And Safety Adviser Visit 2, Adc Lab Jocelyn Yeboah 2, Adc Lab [facility] 1.2.840.114 350.1.13.10 4.2.7.2.686 [id number] [facility] 2024-06-18 08:45:00 2024-06-18 09:27:16 Outpatient R JOCELYN YEBOAH [facility] [id number] [facility] 2024-06-18 08:45:00 2024-06-18 09:27:16 Routine Visit Jocelyn Yeboah [facility] 1.2.840.114 350.1.13.10 4.2.7.2.686 [id number] [facility] 2024-06-04 11:00:00 2024-06-04 11:10:29 Outpatient R DORYS LEMON [facility] [id number] [facility] 2024-06-04 11:00:00 2024-06-04 11:10:29 Routine Visit Dorys Lemon [facility] 1.2.840.114 350.1.13.10 4.2.7.2.686 [id number] [facility] 2024-04-26 00:00:00 2024-06-01 18:25:49 Patient Secure Msg Doctor Unassigned, [place] [facility] 1.2.840.114 350.1.13.10 4.2.7.2.686 [id number] [facility] 2024-05-21 08:45:00 2024-05-21 09:26:16 Outpatient R ADJOCELYN MEADE [facility] [id number] [facility] 2024-05-21 08:45:00 2024-05-21 09:26:16 Routine Visit AdJocelyn meade [facility] 1.840.114 350.1.13.10 4.2.7.2.686 [id number] [facility] 2024-05-15 10:00:00 2024-05-15 10:00:00 Outpatient R JOCELYN YEBOAH [facility] [id number] [facility] 2024-05-01 09:15:00 2024-05-01 09:29:18 Outpatient R OBINNAJOCELYN INDRADESHAUN [facility] [id number] [facility] 2024-05-01 09:15:00 2024-05-01 09:29:18 Routine Visit IndraJocelyn meade [facility] 1.0.114 350.1.13.10 4.2.7.2.686 [id number] [facility] 2024-04-25 00:00:00 2024-04-29 09:13:16 Patient Secure Msg IndraJocelyn meade [facility] 1.0.114 350.1.13.10 4.2.7.2.686 [id number] 134 [id number] [facility] 2024-04-08 13:00:00 2024-04-08 13:30:28 Outpatient P TRACY QUINONES KARIN [facility] [id number] [facility] 2024-04-08 13:00:00 2024-04-08 13:30:28 Occupational Health And Safety Adviser Visit 2, [facility] Room Tracy Quinones [facility] MATERNAL & CHILD [facility] 1.840.114 350.1.13.10 4.2.7.2.686 [id number] [facility] 2024-04-08 09:45:00 2024-04-08 10:00:00 Occupational Health And Safety Adviser Visit Lab, Edvin Quinones [facility] 1..114 350.1.13.10 4.2.7.2.686 [id number] [facility] 2024-04-08 08:00:00 2024-04-08 08:30:12 Occupational Health And Safety Adviser Visit [facility] 1..114 350.1.13.10 4.2.7.2.686 [id number] [facility] 2024-04-03 16:00:00 2024-04-03 16:18:28 Outpatient JOCELYN HUSSEIN [facility] [id number] [facility] 2024-04-03 16:00:00 2024-04-03 16:18:28 Routine Visit Jocelyn Yeboah [facility] 1..114 350.1.13.10 4.2.7.2.686 [id number] [facility] 2024-04-03 11:00:00 2024-04-03 11:00:00 Outpatient JOCELYN HUSSEIN [facility] [id number] [facility] 2024-03-08 08:45:00 2024-03-08 09:53:25 Outpatient AMY MARQUEZ AMY [facility] [id number] [facility] 2024-03-08 08:45:00 2024-03-08 09:53:25 Occupational Health And Safety Adviser Visit Ultrasound, Amy Velasquez [facility] MATERNAL & CHILD [facility] 1.2.840.114 350.1.13.10 4.2.7.2.686 [id number] [facility] 2024-03-08 00:00:00 2024-03-08 00:00:00 Case Management [facility], [facility] 1.2.840.114 350.1.13.10 4.2.7.2.686 [id number] [facility] 2024-03-06 11:15:00 2024-03-06 11:22:58 Outpatient R ADUM, [facility] [id number] [facility] 2024-03-06 11:15:00 2024-03-06 11:22:58 Routine Visit Ad, [facility] 1.2840.114 350.1.13.10 4.2.7.2.686 [id number] [facility] 2024-02-07 12:15:00 2024-02-07 12:30:00 Occupational Health And Safety Adviser Visit Lab, Ang - Db Addeshaun, [facility] 1.2840.114 350.1.13.10 4.2.7.2.686 [id number] [facility] 2024-02-07 12:15:00 2024-02-07 12:15:00 Outpatient R ADUM, [facility] [id number] [facility] 2024-02-07 11:00:00 2024-02-07 11:28:41 Routine Visit Ad, [facility] 1.2840.114 350.1.13.10 4.2.7.2.686 [id number] [facility] 2024-01-19 00:00:00 2024-01-19 00:00:00 Telephone Adum, [facility] 1.2.840.114 350.1.13.10 4.2.7.2.686 [id number] [facility] 2024-01-18 00:00:00 2024-01-18 00:00:00 Telephone Adum, [facility] 1.2.840.114 350.1.13.10 4.2.7.2.686 [id number] [facility] 2024-01-10 12:00:00 2024-01-10 12:00:00 Occupational Health And Safety Adviser Visit Lab, Edvin - Db Ob[facility] 1.2840.114 350.1.13.10 4.2.7.2.686 [id number] [facility] 2024-01-10 11:00:00 2024-01-10 11:36:53 Outpatient R ADDESHAUN [facility] [id number] [facility] 2024-01-10 11:00:00 2024-01-10 11:36:53 Routine Visit Addeshaun, [facility] 1.2840.114 350.1.13.10 4.2.7.2.686 [id number] [facility] 2024-01-10 00:00:00 2024-01-10 00:00:00 Orders Only Doctor Unassigned, [place] [facility] 1.840.114 350.1.13.10 4.2.7.2.686 [id number] [facility] 2024-01-03 08:00:00 2024-01-03 08:00:52 Outpatient R ADDEHSAUN [facility] [id number] [facility] 2024-01-03 08:00:00 2024-01-03 08:00:52 Occupational Health And Safety Adviser Visit Lab, Ang - Db Obinna, [facility] 1.840.114 350.1.13.10 4.2.7.2.686 [id number] [facility] 2024-01-03 00:00:00 2024-01-03 00:00:00 Patient Secure Msg Doctor Unassigned, [place] [facility] 1.2840.114 350.1.13.10 4.2.7.2.686 [id number] [facility] 2023-12-13 14:30:00 2023-12-13 15:32:46 Outpatient R OBINNA JOCELYN [facility] [id number] [facility] 2023-12-13 14:30:00 2023-12-13 15:32:46 Initial Visit Jocelyn Yeboah [facility] 1.840.114 350.1.13.10 4.2.7.2.686 [id number] [facility] 2023-12-13 00:00:00 2023-12-13 00:00:00 Orders Only Doctor Unassigned, [place] [facility] 1.20.114 350.1.13.10 4.2.7.2.686 [id number] [facility] 2023-12-12 14:30:00 2023-12-12 14:30:00 Outpatient R JOCELYN YEBOAH [facility] [id number] [facility] Results Test Description Test Time Test Comments Results Result Co mments Source [facility] with [id number] 09:53:34* Test Item Value Reference Range Interpretation Comme nts WBC (test code = 6690-2) 17.89 4.30-11.10 H RBC (test code = 789-8) 4.64 3.93-5.25 HGB (test code = 718-7) 12.7 g/dL 11.6-15.0 HCT (test code = 4544-3) 38.8 % 35.7-45.2 MCV (test code = 787-2) 83.6 fL 80.6-95.5 MCH (test code = 785-6) 27.4 pg 25.9-32.8 MCHC (test code = 786-4) 32.7 g/dL 31.6-35.1 RDW-SD (test code = 72732-8) 43.1 fL 39.0-49.9 RDW-CV (test code = 788-0) 14.2 % 12.0-15.5 PLT (test code = 777-3) 391 166-358 H MPV (test code = 20656-0) 9.4 fL 9.5-12.9 L NRBC/100 WBC (test code = 2729061751) 0.0 0.0-10.0 NRBC x10^3 (test code = 4214087306) See_Comment [Automated message] The system which generated this result transmitted reference range: 10*3/?L. The reference range was not used to interpret this result as normal/abnormal. GRAN MAT (NEUT) % (test code = 770-8) 81.2 % IMM GRAN % (test code = 6082388531) 0.70 % LYMPH % (test code = 736-9) 11.7 % MONO % (test code = 5905-5) 6.2 % EOS % (test code = 713-8) 0.0 % BASO % (test code = 706-2) 0.2 % GRAN MAT x10^3(ANC) (test code = 4230585950) 14.52 10*3/uL 1.88-7.09 H IMM GRAN x10^3 (test code = 7319959482) 0.12 10*3/uL 0.00-0.06 H LYMPH x10^3 (test code = 731-0) 2.10 10*3/uL 1.32-3.29 MONO x10^3 (test code = 742-7) 1.11 10*3/uL 0.33-0.92 H EOS x10^3 (test code = 711-2) 0.03-0.39 L BASO x10^3 (test code = 704-7) 0.04 10*3/uL 0.01-0.07 Lab Interpretation (test code = 22942-5) Abnormal [facility] Worth[facility]atitis B Surface [id number] 08:28:04 * Test Item Value Reference Range Interpretation Comme nts HBsAg Semi-Quantitative (matilda t code = 5195-3) 0.07 Negative [facility] Worth[facility] OR CAITLIN ONLY - [id number] 07:36:52* Test Item Value Reference Range Interpretation Comme nts RPR (Qualitative) (test code = 60948-1) Nonreactive Nonreactive Lab Interpretation (test cod e = 85074-0) Normal [facility] Worth[facility]/2 Ag-Ab with [id number] 02:45:33* Test Item Value Reference Range Interpretation Comme nts HIV Semi-quantitative (test code = 72659-3) 0.15 Negative MEAGAN (test code = MEAGAN) Non-reactive for HIV-1 antigen and HIV-1/HIV-2 antibodies. ?No laboratory evidence of HIV infection. ?Repeat in 2-4 weeks if acute HIV infection is suspected. [facility]axial [id number] 02:45:00 Sergey Rivers MD ? ? 07/03/2024 ?9:19 PM Central Neuraxial Block Date/Time: 07/03/2024 9:45 PM Performed by: Sergey Rivers [facility]ITAL[facility]horized by: Sergey Rivers MD ?Patient Location: OBReason for Block: OB request, Patient request, Labor analgesia, Surgical anesthesia and Post-op pain managementStaff: ?Anesthesiologist: Sergey Rivers MD ?Performed by: anesthesiologistPreanesthetic Checklist: patient identified, IV checked, risks and benefits explained, monitors and equipment checked, timeout performed, pre- op evaluation, site marked, anesthesia consent and ob/surgical consent verif iedProcedure: ?Type of Neuraxial: Epidural and Continuous ? Sterility Prep cap, drape, gloves, handhygiene and mask ? ?Sedation Level no sedation ?Patient Position: sitting ?Prep: Betadine and patient draped ? ?Monitoring: heart rate, continuous pulse ox, heart rate / toco and NIBP ?Location: lumbar (1-5) ?Lumbar: L2-L3 ?Approach: midline ? ?Technique: FAINA air and catheter ?Guidance with: landmark technique}Epidural/Spinal [place] and/or Catheter: ?Epidural/Spinal Kit: [employer] [place] (BD) ?Needle Type: Tuohy ?Needle Gauge: 17 G ?Needle Length: 3.5 in (8.89 cm) ?Needle Insertion Depth: 7 ?Catheter Type: multiport ? ?Catheter Size: 18 G ? ?Catheter at Skin Depth: 12 ?Number of Attempts: 1 ?Test Dose: lidocaine 1.5% with epinephrine 1-to-200,000 and negative ? ?Dose: 3 cc ? ?Catheter Securement Method: surgical tape and TegadermAssessment: ?Sensory Level: below T10 ?Lumbar: T12 ?Block Outcome: positive pain relief and successful block ? ?Procedure Assessment: patient tolerated procedure well with no complicationsNotes: ? Smooth and atraumatic, (+) Local, (+) STFUniversity of [facility] with Differential 2024-07-04 01:10:18* Test Item Value Reference Range Interpretation Comme nts WBC (test code = 6690-2) 13.44 4.30-11.10 H RBC (test code = 789-8) 4.91 3.93-5.25 HGB (test code = 718-7) 13.8 g/dL 11.6-15.0 HCT (test code = 4544-3) 41.2 % 35.7-45.2 MCV (test code = 787-2) 83.9 fL 80.6-95.5 MCH (test code = 785-6) 28.1 pg 25.9-32.8 MCHC (test code = 786-4) 33.5 g/dL 31.6-35.1 RDW-SD (test code = 91592-9) 43.6 fL 39.0-49.9 RDW-CV (test code = 788-0) 14.2 % 12.0-15.5 PLT (test code = 777-3) 412 166-358 H MPV (test code = 89717-9) 9.6 fL 9.5-12.9 NRBC/100 WBC (test code = 6856182986) 0.0 0.0-10.0 NRBC x10^3 (test code = 4658523292) See_Comment [Automated message] The system which generated this result transmitted reference range: 10*3/?L. The reference range was not used to interpret this result as normal/abnormal. GRAN MAT (NEUT) % (test code = 770-8) 76.6 % IMM GRAN % (test code = 5116412793) 0.50 % LYMPH % (test code = 736-9) 16.0 % MONO % (test code = 5905-5) 6.5 % EOS % (test code = 713-8) 0.2 % BASO % (test code = 706-2) 0.2 % GRAN MAT x10^3(ANC) (test code = 1213141235) 10.29 10*3/uL 1.88-7.09 H IMM GRAN x10^3 (test code = 1927632401) 0.07 10*3/uL 0.00-0.06 H LYMPH x10^3 (test code = 731-0) 2.15 10*3/uL 1.32-3.29 MONO x10^3 (test code = 742-7) 0.87 10*3/uL 0.33-0.92 EOS x10^3 (test code = 711-2) 0.03 10*3/uL 0.03-0.39 BASO x10^3 (test code = 704-7) 0.03 10*3/uL 0.01-0.07 Lab Interpretation (test code = 19884-4) Abnormal [facility] WorthType and Screen - ONCE [id number] 01:02:00 * Test Item Value Reference Range Interpretation Comme nts ABO & RH (test code = 20) O POSITIVE IAT (test code = 1185) Negative [facility] Worth[facility] Urinalysis w/o Specific [id number] 20:38:00* Test Item Value Reference Range Interpretation Comme nts POCT PH U (test code = 3254) n/a 5-8 POCT U LEUK EST (test code = 3263) n/a Negative - Negative POCT U NIT (test code = 3262) n/a Negative - Negati ve POCT U PROT (test code = 3259) negative Negative - Negat lang POCT U GLU (test code = 3256) normal Negative - Negati ve POCT U KETONE (test code = 3258) n/a Negative - Neg ative POCT U BLD (test code = 3257) n/a Negative - Negati ve [facility] Urinalysis w/o Specific [id number] 21:29:00* Test Item Value Reference Range Interpretation Comme nts POCT PH U (test code = 3254) n/a 5-8 POCT U LEUK EST (test code = 3263) n/a Negative - Negative POCT U NIT (test code = 3262) n/a Negative - Negati ve POCT U PROT (test code = 3259) negative Negative - Negat lang POCT U GLU (test code = 3256) negative Negative - Negati ve POCT U KETONE (test code = 3258) n/a Negative - Neg ative POCT U BLD (test code = 3257) n/a Negative - Negati ve [facility] Urinalysis w/o Specific [id number] 15:38:00* Test Item Value Reference Range Interpretation Comme nts POCT PH U (test code = 3254) n/a 5-8 POCT U LEUK EST (test code = 3263) n/a Negative - N egative POCT U NIT (test code = 3262) n/a Negative - Negati ve POCT U PROT (test code = 3259) neg Negative - Negat lang POCT U GLU (test code = 3256) neg Negative - Negati ve POCT U KETONE (test code = 3258) n/a Negative - Neg ative POCT U BLD (test code = 3257) n/a Negative - Negati ve [facility] Urinalysis w/o Specific [id number] 16:00:00* Test Item Value Reference Range Interpretation Comme nts POCT PH U (test code = 3254) n.a 5-8 POCT U LEUK EST (test code = 3263) n.a Negative - Negative POCT U NIT (test code = 3262) n.a Negative - Negati ve POCT U PROT (test code = 3259) negative Negative - Negat lang POCT U GLU (test code = 3256) negative Negative - Negati ve POCT U KETONE (test code = 3258) n.a Negative - Neg ative POCT U BLD (test code = 3257) n.a Negative - Negati ve [facility] Urinalysis w/o Specific [id number] 13:59:00* Test Item Value Reference Range Interpretation Comme nts POCT PH U (test code = 3254) n/a 5-8 POCT U LEUK EST (test code = 3263) n/a Negative - Negative POCT U NIT (test code = 3262) n/a Negative - Negati ve POCT U PROT (test code = 3259) negative Negative - Negat lang POCT U GLU (test code = 3256) negative Negative - Negati ve POCT U KETONE (test code = 3258) n/a Negative - Neg ative POCT U BLD (test code = 3257) n/a Negative - Negati ve [facility] Urinalysis w/o Specific [id number] 14:07:00* Test Item Value Reference Range Interpretation Comme nts POCT PH U (test code = 3254) n/a 5-8 POCT U LEUK EST (test code = 3263) n/a Negative - Negative POCT U NIT (test code = 3262) n/a Negative - Negati ve POCT U PROT (test code = 3259) trace Negative - Negat lang POCT U GLU (test code = 3256) negative Negative - Negati ve POCT U KETONE (test code = 3258) n/a Negative - Neg ative POCT U BLD (test code = 3257) n/a Negative - Negati ve [facility] [id number] 21:24:00* Test Item Value Reference Range Interpretation Comme nts POCT PH U (test code = 3254) N/A 5-8 POCT U LEUK EST (test code = 3263) N/A Negative - Negative POCT U NIT (test code = 3262) N/A Negative - Negati ve POCT U PROT (test code = 3259) Negative Negative - Negat lang POCT U GLU (test code = 3256) Negative Negative - Negati ve POCT U KETONE (test code = 3258) N/A Negative - Neg ative POCT U BLD (test code = 3257) N/A Negative - Negati ve [facility] Urinalysis w/o Specific [id number] 16:10:00* Test Item Value Reference Range Interpretation Comme nts POCT PH U (test code = 3254) n/a 5-8 POCT U LEUK EST (test code = 3263) n/a Negative - Negative POCT U NIT (test code = 3262) n/a Negative - Negati ve POCT U PROT (test code = 3259) negative Negative - Negat lang POCT U GLU (test code = 3256) negative Negative - Negati ve POCT U KETONE (test code = 3258) n/a Negative - Neg ative POCT U BLD (test code = 3257) n/a Negative - Negati ve [facility] Urinalysis w/o Specific [id number] 15:55:00* Test Item Value Reference Range Interpretation Comme nts POCT PH U (test code = 3254) n/a 5-8 POCT U LEUK EST (test code = 3263) n/a Negative - Negative POCT U NIT (test code = 3262) n/a Negative - Negati ve POCT U PROT (test code = 3259) negative Negative - Negat lang POCT U GLU (test code = 3256) negative Negative - Negati ve POCT U KETONE (test code = 3258) n/a Negative - Neg ative POCT U BLD (test code = 3257) n/a Negative - Negati ve [facility] Urinalysis w/o Specific [id number] 17:06:00* Test Item Value Reference Range Interpretation Comme nts POCT PH U (test code = 3254) n/a 5-8 POCT U LEUK EST (test code = 3263) n/a Negative - Negative POCT U NIT (test code = 3262) n/a Negative - Negati ve POCT U PROT (test code = 3259) negative Negative - Negat lang POCT U GLU (test code = 3256) negative Negative - Negati ve POCT U KETONE (test code = 3258) n/a Negative - Neg ative POCT U BLD (test code = 3257) n/a Negative - Negati ve [facility] [id number] 22:32:00* Test Item Value Reference Range Interpretation Comme nts POCT PREG (test code = 1605) Positive On board controls acceptable with C Line (test code = 3574) Yes POCT PREG LOT # (test code = 3575) POCT PREG TEST DATE ( test code = 3576) [facility] Urinalysis w/o Specific [id number] 22:32:00* Test Item Value Reference Range Interpretation Comme nts POCT PH U (test code = 3254) n/a 5-8 POCT U LEUK EST (test code = 3263) n/a Negative - Negative POCT U NIT (test code = 3262) n/a Negative - Negati ve POCT U PROT (test code = 3259) negative Negative - Negat lang POCT U GLU (test code = 3256) negative Negative - Negati ve POCT U KETONE (test code = 3258) n/a Negative - Neg ative POCT U BLD (test code = 3257) n/a Negative - Negati ve [facility] History and Physical Notes Date/Time Note Provider Source 2024-07-03 22:46:27 TRIAGE HISTORY & PHYSICAL IDENTIFYING DATA Latisha Florian is 19 year old, /White, 38w3d, female with LESLIE 07/14/2024, by Ultrasound. : 2005 Primary Care Physician: PATIENT DOES NOT HAVE A PCP CHIEF COMPLAINT Contractions HISTORY OF PRESENT ILLNESS Latisha Florian is a 19 year old female at 38w3d presents with contractions. +FM. No VB, LOF. No pre-eclampsia sx or other complaints. CARE: OB: Dr Yeboah See OB summary for details of PNC PAST OBSTETRIC HISTORY OB History Para Term AB Living 1 SAB IAB Ectopic Multiple Live Births # Outcome Date GA Lbr Pablo/2nd Weight Sex Delivery Anes PTL Lv 1 Current PAST MEDICAL HISTORY Problem list: Patient Active Problem List Diagnosis Date Noted Uterine contractions 07/03/2024 Morbid obesity with body mass index of 40.0-49.9 07/03/2024 38 weeks gestation of 12/13/2023 Other obesity affecting in first trimester 12/13/2023 Operations: No past surgical history on file. No past medical history on file. CURRENT HEALTH STATUS Medications: Current Facility-Administered Medications Medication Dose Route Frequency Last Rate Last Admin carboprost (HEMABATE) injection 250 mcg 250 mcg Intramuscular Q2HPRN D5W-LR IV infusion 1,000 mL 1,000 mL IV Infusion TITRATE 125 mL/hr at 07/03/24 1950 1,000 mL at 07/03/241949 FENTanyl (PF) (SUBLIMAZE) injection 100 mcg 100 mcg Slow IV Push Q1HPRN 100 mcg at 07/03/241950 lactated ringers IV infusion 500 mL 500 mL IV Infusion PRN - SEE INSTRUCTIONS lidocaine 1% (PF) (XYLOCAINE) injection 0.3 mL 0.3 mL Infiltration PRN - SEE INSTRUCTIONS lidocaine 1% (XYLOCAINE) 10 mg/mL (1 %) injection 50 mL 50 mL Infiltration PRN - SEE INSTRUCTIONS methylergonovine (METHERGINE) injection 0.2 mg 0.2 mg Intramuscular Q4HPRN miSOPROStol (CYTOTEC) quarter-tablet 25 mcg 25 mcg Vaginal ONCE miSOPROStoL (CYTOTEC) tablet 200 mcg 200 mcg Rectal PRN oxytocin (PITOCIN) 30 units in NS 500 mL IV infusion 2-40 josefina-units/min IV Infusion TITRATE oxytocin (PITOCIN) 30 units in NS 500 mL IV infusion 600 mL/hr IV Infusion PRN proMETHazine (PHENERGAN) 25 mg in NS 50 mL IV piggyback (CNR) 25 mg IV Piggyback Q4HPRN sodium citrate-citric acid (BICITRA) 500-334 mg/5 mL solution 30 mL 30 mL Oral PRE-PROCEDURE ONCE terbutaline (BRETHINE) injection 0.25 mg 0.25 mg Subcutaneous Q15MIN PRN tranexamic acid (CYKLOKAPRON) 1,000 mg in NaCl 0.9% (NS) 250 mL piggyback 1,000 mg IV Piggyback PRN Facility-Administered Medications Ordered in Other Encounters Medication Dose Route Frequency Last Rate Last Admin fentaNYL-ropivacaine 2 mcg/mL-0.1 % (PF) in NS 200 mL epidural infusion RTU Epidural CONTINUOUS PRN 10 mL/hr at 07/03/242047 10 mL/hr at 07/03/242047 Allergies and drug reactions: Amoxicillin, Cat dander, Dog dander, Fluticasone furoate, House dust, Ibuprofen, and Pollen extracts HOME MEDICATIONS Medications Prior to Admission Medication Sig Dispense Refill Last Dose vitamin w/FA tablet Take 1 tablet by mouth in the morning. 30 tablet 3 Taking SOCIAL HISTORY Tobacco History: Social History Tobacco Use Smoking Status Never Smokeless Tobacco Never Drug History: Social History Substance and Sexual Activity Drug Use Never Alcohol History: Social History Substance and Sexual Activity Alcohol Use Not Currently FAMILY HISTORY No family history on file. REVIEW OF SYSTEMS General: negative Constitutional: negative Eyes: negative ENT/Mouth: negative Cardiovascular: negative Respiratory: negative Gastrointestinal:negative Genitourinary: As HPI Musculoskeletal: negative Skin/breast: negative Neurological: negative Psychiatric: negative Endocrine: negative Hemat/Lymph: negative Allergic/Immuno:none VITAL SIGNS BP: (99-139)/(59-88) Temp: [36.6 ?C (97.8 ?F)-36.6 ?C (97.9 ?F)] Temp source: Oral (07/03 1900) Pulse: [82-97] Resp: [17] SpO2: [99 %-100 %] Height: [162.6 cm (5' 4")] Weight: [106.1 kg (234 lb)-106.4 kg (234 lb 8 oz)] BMI (calculated): [40.17-40.25] PHYSICAL EXAMINATIONS Gen: alert and oriented, well appearing, no distress CV: RRR Resp: normal work of breathing Abd: gravid, soft, NTTP. Cephalic. EFW less than 4500gram Ext: no calf tenderness or edema Contractions q 2-4 min - SVE: /0 - Mode: [place]: REVIEW OF LABORATORY, PATHOLOGY, AND RADIOLOGY DATA Lab results: Type & Screen HIV Hep B Syphilis Chlamydia ABO & RH Date Value Ref Range Status 07/03/2024 O POSITIVE Final No results found for: "HIVMULTIPLEX" No components found for: "HBSHBSAG" No results found for: "SYPIGG" C. trachomatis Nucleic Acid Date Value Ref Range Status 06/18/2024 Negative Negative Final IAT Date Value Ref Range Status 07/03/2024 Negative Final Varicella Rubella Glucose Group B Strep CBC VZV IgG antibody Date Value Ref Range Status 01/03/2024 Negative Negative Final Rubella screen IgG Date Value Ref Range Status 01/03/2024 Negative Negative Final GLUC 1 HR Date Value Ref Range Status 04/08/2024 80 (L) 120 - 170 mg/dL Final No results found for: "CGBS" HGB Date Value Ref Range Status 07/03/2024 13.8 11.6 - 15.0 g/dL Final HCT Date Value Ref Range Status 07/03/2024 41.2 35.7 - 45.2 % Final PLT Date Value Ref Range Status 07/03/2024 412 (H) 166 - 358 10*3/?L Final Placenta Accreta Screening Prior ? : No Prior Uterine Surgery?: No Placenta low lying/previa in current ? : No Screening outcome: A positive screening outcome indicates a history of prior delivery or prior uterine surgery, AND the presence of either a placenta low lying/previa or ultrasound suspicion of PASD in the current . Negative screening. Active Hospital Problems Diagnosis Date Noted Uterine contractions 07/03/2024 Morbid obesity with body mass index of 40.0-49.9 07/03/2024 38 weeks gestation of 12/13/2023 Resolved Hospital Problems No resolved problems to display. Present on Admission: Uterine contractions Morbid obesity with body mass index of 40.0-49.9 38 weeks gestation of ASSESSMENT AND PLAN Latisha Florian is a 19 year old at 38w3d who presents in labor. CAT 1. GBS negative Labor AROM- clear Fetus CAT 1 Cephalic risk low Anticipate vaginal delivery Jocelyn Yeboah MD [facility] Procedure Notes Date/Time Note Provider Source 2024-07-03 21:17:34 Associated Order(s): Central Neuraxial Block Central Neuraxial Block Date/Time: 07/03/2024 9:45 PM Performed by: Sergey Rivers MD Authorized by: Sergey Rivers MD Patient Location: OB Reason for Block: OB request, Patient request, Labor analgesia, Surgical anesthesia and Post-op pain management Staff: Anesthesiologist: Sergey Rivers MD Performed by: anesthesiologist Preanesthetic Checklist: patient identified, IV checked, risks and benefits explained, monitors and equipment checked, timeout performed, pre-op evaluation, site marked, anesthesia consent and ob/surgical consent verified Procedure: Type of Neuraxial: Epidural and Continuous Sterility Prep cap, drape, gloves, hand hygiene and mask Sedation Level no sedation Patient Position: sitting Prep: Betadine and patient draped Monitoring: heart rate, continuous pulse ox, heart rate / toco and NIBP Location: lumbar (1-5) Lumbar: L2-L3 Approach: midline Technique: FAINA air and catheter Guidance with: landmark technique} Epidural/Spinal [place] and/or Catheter: Epidural/Spinal Kit: Supramed (Hosted Systems) Needle Type: Tuohy Needle Gauge: 17 G Needle Length: 3.5 in (8.89 cm) Needle Insertion Depth: 7 Catheter Type: multiport Catheter Size: 18 G Catheter at Skin Depth: 12 Number of Attempts: 1 Test Dose: lidocaine 1.5% with epinephrine 1-to-200,000 and negative Dose: 3 cc Catheter Securement Method: surgical tape and Tegaderm Assessment: Sensory Level: below T10 Lumbar: T12 Block Outcome: positive pain relief and successful block Procedure Assessment: patient tolerated procedure well with no complications Notes: Smooth and atraumatic, (+) Local, (+) STF [facility] Notes Date/Time Note Provider Source 2024-07-05 11:42:15 Problem: Bleeding, Risk of Goal: Absence of impaired coagulation signs and symptoms 07/05/2024 1142 by Heather White RN Outcome: Resolved 07/05/2024 0740 by Heather White RN Outcome: Progressing as expected Goal: Absence of active bleeding 07/05/2024 1142 by Heather White RN Outcome: Resolved 07/05/2024 0740 by Heather White RN Outcome: Progressing as expected Problem: Infection Risk Goal: Absence of infection 07/05/2024 1142 by Heather White RN Outcome: Resolved 07/05/2024 0740 by Heather White RN Outcome: Progressing as expected Problem: Falls, Risk of Goal: Absence of falls 07/05/2024 1142 by Heather White RN Outcome: Resolved 07/05/2024 0740 by Heather White RN Outcome: Progressing as expected Problem: Skin integrity Impaired (Risk or Actual) Goal: Wound healing 07/05/2024 1142 by Heather White RN Outcome: Resolved 07/05/2024 0740 by Heather White RN Outcome: Progressing as expected Goal: Prevention of new skin breakdown 07/05/2024 1142 by Heather White RN Outcome: Resolved 07/05/2024 0740 by Heather White RN Outcome: Progressing as expected Problem: Breast-feeding - Ineffective Goal: Effective breast-feeding 07/05/2024 1142 by Heather White RN Outcome: Resolved 07/05/2024 0740 by Heather White RN Outcome: Progressing as expected Problem: Discharge Planning Goal: Adequate for discharge 07/05/2024 1142 by Heather White RN Outcome: Resolved 07/05/2024 0740 by Heather White RN Outcome: Progressing as expected Goal: Effective communication 07/05/2024 1142 by Heather White RN Outcome: Resolved 07/05/2024 0740 by Heather White RN Outcome: Progressing as expected Problem: Discharge Planning - Goal: Adequate for discharge 07/05/2024 1142 by Heather White RN Outcome: Resolved 07/05/2024 0740 by Heather White RN Outcome: Progressing as expected Goal: Mood stable 07/05/2024 1142 by Heather White RN Outcome: Resolved 07/05/2024 0740 by Heather White RN Outcome: Progressing as expected Problem: Pain Goal: Control of pain at or below patient's documented comfort goal 07/05/2024 1142 by Heather White RN Outcome: Resolved 07/05/2024 0740 by Heather White RN Outcome: Progressing as expected Goal: Reduction in pain sensation 07/05/2024 1142 by Heather White RN Outcome: Resolved 07/05/2024 0740 by Heather White RN Outcome: Progressing as expected [facility] 2024-07-05 07:40:37 Problem: Bleeding, Risk of Goal: Absence of impaired coagulation signs and symptoms Outcome: Progressing as expected Goal: Absence of active bleeding Outcome: Progressing as expected Problem: Infection Risk Goal: Absence of infection Outcome: Progressing as expected Problem: Falls, Risk of Goal: Absence of falls Outcome: Progressing as expected Problem: Skin integrity Impaired (Risk or Actual) Goal: Wound healing Outcome: Progressing as expected Goal: Prevention of new skin breakdown Outcome: Progressing as expected Problem: Breast-feeding - Ineffective Goal: Effective breast-feeding Outcome: Progressing as expected Problem: Discharge Planning Goal: Adequate for discharge Outcome: Progressing as expected Goal: Effective communication Outcome: Progressing as expected Problem: Discharge Planning - Goal: Adequate for discharge Outcome: Progressing as expected Goal: Mood stable Outcome: Progressing as expected Problem: Pain Goal: Control of pain at or below patient's documented comfort goal Outcome: Progressing as expected Goal: Reduction in pain sensation Outcome: Progressing as expected [facility] 2024-07-04 20:40:15 Problem: Bleeding, Risk of Goal: Absence of impaired coagulation signs and symptoms Outcome: Progressing as expected Goal: Absence of active bleeding Outcome: Progressing as expected Problem: Infection Risk Goal: Absence of infection Outcome: Progressing as expected Problem: Falls, Risk of Goal: Absence of falls Outcome: Progressing as expected Problem: Skin integrity Impaired (Risk or Actual) Goal: Wound healing Outcome: Progressing as expected Goal: Prevention of new skin breakdown Outcome: Progressing as expected Problem: Breast-feeding - Ineffective Goal: Effective breast-feeding Outcome: Progressing as expected Problem: Discharge Planning Goal: Adequate for discharge Outcome: Progressing as expected Goal: Effective communication Outcome: Progressing as expected Problem: Discharge Planning - Goal: Adequate for discharge Outcome: Progressing as expected Goal: Mood stable Outcome: Progressing as expected Problem: Pain Goal: Control of pain at or below patient's documented comfort goal Outcome: Progressing as expected Goal: Reduction in pain sensation Outcome: Progressing as expected Delores Hendrix RN [facility] 2024-07-04 08:35:28 Problem: Bleeding, Risk of Goal: Absence of impaired coagulation signs and symptoms Outcome: Progressing as expected Goal: Absence of active bleeding Outcome: Progressing as expected Problem: Infection Risk Goal: Absence of infection Outcome: Progressing as expected Problem: Falls, Risk of Goal: Absence of falls Outcome: Progressing as expected Problem: Skin integrity Impaired (Risk or Actual) Goal: Wound healing Outcome: Progressing as expected Goal: Prevention of new skin breakdown Outcome: Progressing as expected Problem: Breast-feeding - Ineffective Goal: Effective breast-feeding Outcome: Progressing as expected Problem: Discharge Planning Goal: Adequate for discharge Outcome: Progressing as expected Goal: Effective communication Outcome: Progressing as expected Problem: Discharge Planning - Goal: Adequate for discharge Outcome: Progressing as expected Goal: Mood stable Outcome: Progressing as expected Problem: Pain Goal: Control of pain at or below patient's documented comfort goal Outcome: Progressing as expected Goal: Reduction in pain sensation Outcome: Progressing as expected Sue Gallo RN [facility] 2024-07-04 07:47:33 Patient had delivery 07.03.2024 Tomeka Taylor MA [facility] 2024-07-04 06:19:48 Patient: Latisha Florian Procedure Summary Date: 07/03/24 Room / Location: Anesthesia Start: 2039 Anesthesia Stop: 07/04/24118 Procedure: CENTRAL NEURAXIAL BLOCK Diagnosis: Scheduled Providers: Responsible Provider: Sergey Rivers MD Anesthesia Type: Epidural ASA Status: 3 Anesthesia Type: Epidural Last vitals BP Temp Pulse Resp SpO2 There were no known notable events for this encounter. Anesthesia Post Evaluation Patient location during evaluation: floor Patient participation: complete - patient participated Level of consciousness: awake and alert Pain score: 0 Pain management: satisfactory to patient Airway patency: patent Cardiovascular status: acceptable and blood pressure returned to baseline Respiratory status: acceptable Hydration status: acceptable AN-ANESTHESIOLOGY ANESTHESIOLOGIST [facility] 2024-07-04 00:22:10 Problem: Bleeding, Risk of Goal: Absence of impaired coagulation signs and symptoms 07/04/202416 by Levi Vora RN Outcome: Progressing as expected 07/03/20241957 by Levi Vora RN Outcome: Progressing as expected Goal: Absence of active bleeding 07/04/202416 by Levi Vora RN Outcome: Progressing as expected 07/03/20241957 by Levi Vora RN Outcome: Progressing as expected Problem: Infection Risk Goal: Absence of infection 07/04/202416 by Levi Vora RN Outcome: Progressing as expected 07/03/20241957 by Levi Vora RN Outcome: Progressing as expected Problem: Falls, Risk of Goal: Absence of falls 07/04/202416 by Levi Vora RN Outcome: Progressing as expected 07/03/20241957 by Levi Vora RN Outcome: Progressing as expected Problem: Skin integrity Impaired (Risk or Actual) Goal: Wound healing 07/04/202416 by Levi Vora RN Outcome: Progressing as expected 07/03/20241957 by Levi Vora RN Outcome: Progressing as expected Goal: Prevention of new skin breakdown 07/04/202416 by Levi Vora RN Outcome: Progressing as expected 07/03/20241957 by Levi Vora RN Outcome: Progressing as expected Problem: Breast-feeding - Ineffective Goal: Effective breast-feeding 07/04/202416 by Levi Vora RN Outcome: Progressing as expected 07/03/20241957 by Levi Vora RN Outcome: Progressing as expected Problem: Discharge Planning Goal: Adequate for discharge Outcome: Progressing as expected Goal: Effective communication Outcome: Progressing as expected Problem: Discharge Planning - Goal: Adequate for discharge Outcome: Progressing as expected Goal: Mood stable Outcome: Progressing as expected Problem: Pain Goal: Control of pain at or below patient's documented comfort goal Outcome: Progressing as expected Goal: Reduction in pain sensation Outcome: Progressing as expected Vora RN [facility] 2024-07-04 00:03:28 DELIVERY BY SPONTANEOUS VAGINAL DELIVERY Delivery Date: 07/03/2024 Delivery Time: 11:38 PM Delivery Summary The patient was admitted to the Labor & Delivery unit in spontaneous at 38w3d Delivery Physician: Jocelyn Yeboah MD OB Faculty: Jocelyn Yeboah MD Intrapartum Anesthesia/Analgesia: Epidural Mode of Delivery: Delivery of hurtado fetus with cephalic presentation Fetus Spontaneous vaginal delivery of head with cephalic position, occipital anterior. As the head crowned and distended the perineum, no episiotomy was performed. A blue towel was used to protect the perineum as the head crowned and delivered. The other hand was used to exert pressure on the occiput to control the delivery of the head. The perineum was pushed with a towel-draped hand as the head and mouth was delivered over the perineum. The head was allowed to rotate externally to achieve natural body posture. Examination of neck revealed no umbilical cord. The shoulder was delivered by gentle downward traction applied to head and downward traction for the delivery of anterior shoulder. This was followed by upward traction with delivery of posterior shoulder and body. After the delivery of , bulb suction was performed from ororpharynx and nostril with removal of clear amniotic fluid. A normal, male was delivered. Delayed cord clamping was observed and the umbilical cord was double clamped, cut and the was handed off the field to the circulating nurse Placenta Placenta was delivered spontaneously while the abdominal hand lifted the uterus cephalad and other hand keeping the umbilical cord slightly taut. Laceration 2nd degree laceration Laceration Repair: 2nd Degree - Second degree laceration was repaired. Suture was used with continuous locking fashion to close the vaginal mucosa and submucosa. The hymenal ring is reapproximated and tied with the same suture. The fascia and muscle of perineum was reapproximated with continuous suturing from forchett toward inferior edge. Continuous subcutaneous stitch was used to reapproximate the perineal skin with the same suture. Fourth Stage Fourth stage of labor was managed by uterine massage with abdominal hand and infusion 300 units of pitocin mixed with intravenous fluid. QBL: 150 Complications: None Weight: 3110 g 1 Minute 5 Minute 10 Minute Totals: 8 9 Jocelyn Yeboah MD [facility] 2024-07-03 21:19:39 Name/ MRN / Age / Gender: Latisha Florian, [id number] 19 year old female BMI: Estimated body mass index is 40.17 kg/m? as calculated from the following: Height as of this encounter: 1.626 m (5' 4"). Weight as of this encounter: 106.1 kg (234 lb). Allergies: Amoxicillin, Cat dander, Dog dander, Fluticasone furoate, House dust, Ibuprofen, and Pollen extracts Last Vitals: BP Readings from Last 1 Encounters: 07/03/24 139/80 Pulse Readings from Last 1 Encounters: 07/03/24 88 SpO2 Readings from Last 1 Encounters: 07/03/24 99% Date of Surgery: 07/03/2024 Surgeon: * No surgeons listed * Procedure: CENTRAL NEURAXIAL BLOCK OR Location: [place] [facility] OUT OF OR - OR LOCATION Anesthesia Preop Eval (physical exam) Anesthesia Preop: [id number] NPO Status Verified Solid Food/Non-Clear Liquids: > 8 Hours PONV Risk Factors: female Anesthesia History Anesthesia History Negative Previous Anesthetics/Airways Cardiovascular Negative Cardiac ROS Pulmonary Negative Pulmonary ROS Neuro/Musculoskeletal (+) Obesity and morbid obesity GI/Hepatic Negative GI/Hepatic ROS Hematology Renal Negative Renal ROS Skin Negative Skin ROS (+) Current IV access and 18g Endo/Other Negative Endo/Other ROS Other FLAG MAKER P: 0 Pediatric Negative Pediatric ROS Negative ROS Preoperative Medication Instructions Continue taking all prescribed medications except: MONET inhibitors, ARBs, diuretics, all oral diabetes medications Anticoagulant Therapy: Defer to surgeons Insulin: Take 1/2 dose the night prior to surgery. Hold on DOS. Phentermine: Alert [facility] anesthesiologist SGLT2 Inhibitors: "gliflozins" to be held for 3 days prior to elective surgeries GLP1 Agonosit: stop 7 days prior to surgery MAC Cases: Continue taking MONET inhibitors and ARBs ASA Classification ASA: 3 Labs: Chemistry - CBC 07/03/2024 - - - - 13.44 (H) 13.8 412 (H) - - - 41.2 eGFR: - Date: - ANC: 10.29 (H) Date: 07/03/2024 LFTs - Coags AST: - AP: - Prot: - Ca: - PT: - Date: - ALT: - T Jurgen: - Alb: - PTT: - Date: - PO4: - Date: - INR: - Date: - Cardiac Endocrine & other pBNP: - Date: - A1C: 4.9 Date: 01/03/2024 Trop I: - Date: - POCT A1C: - Date: - CK: - Date: - TSH: - Date: - CKMB: - Date: - FT4: - Date: - LDL: - Date: - Lact: - Date: - Procal: - Date: - Respiratory -|-|-|-|- D-dimer: - ABG Date: - Date: - Miscellaneous Type and Screen: O POSITIVE Antibody: Negative Date: 07/03/2024 POCT : Positive Date: 12/13/2023 Current Medications: No outpatient medications have been marked as taking for the 07/03/24 encounter (Hospital Encounter). Previous Surgeries: No past surgical history on file. Anesthesia Physical Exam General no apparent distress and alert and oriented x 3 Neuro/Psych nonfocal Dental no notable dental hx Abdominal (+) obesity and gravid Airway Mallampati score:II TM distance:> 5 cm Neck ROM: full Mouth opening:normal Extremity Normal extremity Pulmonary bilateral clear to auscultation Other Cardiovascular Rhythm:regular Rate: normal Anesthesia Plan ASA Status: 3 Plan discussed during pre-op evaluation: Epidural Anesthetic plan on DOS: Epidural Anesthesia plan discussed with: patient or claims representative Post-Operative Analgesia: routine analgesia & antiemetics Recovery Plan: PACU Additional comments: [facility] 2024-07-03 19:59:36 Problem: Intrapartum process (including labor pain) Goal: Absence of or reduction of complications of labor Outcome: Progressing as expected Goal: Able to cope with pain Outcome: Progressing as expected Goal: Adequate to move to next level of care Outcome: Progressing as expected Goal: Reduction in pain sensation Outcome: Progressing as expected Problem: Bleeding, Risk of Goal: Absence of impaired coagulation signs and symptoms Outcome: Progressing as expected Goal: Absence of active bleeding Outcome: Progressing as expected Problem: Infection Risk Goal: Absence of infection Outcome: Progressing as expected Problem: Falls, Risk of Goal: Absence of falls Outcome: Progressing as expected Problem: Skin integrity Impaired (Risk or Actual) Goal: Wound healing Outcome: Progressing as expected Goal: Prevention of new skin breakdown Outcome: Progressing as expected Problem: Breast-feeding - Ineffective Goal: Effective breast-feeding Outcome: Progressing as expected [facility] 2024-07-03 18:47:59 Pt to ED CO intermittent contractions since last night. Induction scheduled with Dr. Yeboah for 07/10/24. . Denies any fluid loss/vaginal bleeding. Report to Janie MOLINA. Latha Casillas RN [facility] 2024-07-02 15:30:00 Age: [age] year old GA: 38w2d 1. High-risk in third trimester 2. 38 weeks gestation of IOL on 07/10 VE: 2/-3 -Continue with kick count monitoring daily -Labor precautions given as follows: 1. Go to Labor and Delivery when your contractions are 5-7 minutes apart and you have been able to time them for an hour. If you live more than 30 minutes from the hospital, then go when they are 10 minutes apart and you have been able to time them for an hour. 2. BUT, there are 4 reasons to go to Labor and Delivery REGARDLESS of what else is happening, whether you are pedro or not: 1. If your water breaks - - - it may be a gush or a constant trickle. If you are not sure, always come in to be checked. 2. Bleeding like your period. 3. If your baby's movements are less than 10 in an hour. If you are concerned this might be the case, drink a tall glass of cold fluids, lay down on your side on the couch or your bed and see how long it takes to note 10 movements - if less than 10, this needs to be evaluated immediately. 4. Contractions or Pain that is continuous. Normal labor contractions last only 45 seconds - 1 minute. - POCT Urinalysis w/o Specific [place] 3. Other obesity affecting in third trimester - stable weight RTC 4-6 wks post delivery Future Appointments In 1 week ADC INDUCTION [facility] L&D Scheduled Appointments, [facility] 2024-06-25 16:15:00 Age: [age] year old GA: 37w2d PLAN 1. High-risk in third trimester 2. 37 weeks gestation of Wants spontaneous labor but accepts IOL after 40 wks -Continue with kick count monitoring daily -Labor precautions given as follows: 1. Go to Labor and Delivery when your contractions are 5-7 minutes apart and you have been able to time them for an hour. If you live more than 30 minutes from the hospital, then go when they are 10 minutes apart and you have been able to time them for an hour. 2. BUT, there are 4 reasons to go to Labor and Delivery REGARDLESS of what else is happening, whether you are pedro or not: 1. If your water breaks - - - it may be a gush or a constant trickle. If you are not sure, always come in to be checked. 2. Bleeding like your period. 3. If your baby's movements are less than 10 in an hour. If you are concerned this might be the case, drink a tall glass of cold fluids, lay down on your side on the couch or your bed and see how long it takes to note 10 movements - if less than 10, this needs to be evaluated immediately. 4. Contractions or Pain that is continuous. Normal labor contractions last only 45 seconds - 1 minute. - POCT Urinalysis w/o Specific [place] 3. Other obesity affecting in third trimester Weight gain stable VLADIMIR in 1 week or PRN Future Appointments In 1 week Jocelyn Yeboah MD [facility] Jocelyn Yeboah MD [facility] 2024-06-18 09:30:00 Images from the original note were not included. Venipuncture collection performed by clean technique on the left anticubitus. Total of 1 attempts were made. Slight pressure and a bandage/dressing were applied to the site(s). The patient experienced no complications. The following specimens were processed according to instructions and sent to [facility] laboratories per lab order on 06/18/2024 : LT BLUE SST RED LAV 1 PPT DK GREEN (LiHep) DK GREEN (SodH) MURILLO DK BLUE (K2) DK BLUE (S) ACD Blood Culture NIPT/NTD [facility] 2024-06-18 08:45:00 Age: [age] year old GA: 36w2d 1. High-risk in third trimester - POCT Urinalysis w/o Specific [place] 2. 36 weeks gestation of - Discussed IOL vs spontaneous labor. Benefits and risks reviewed with patient Patient will make decision by her next visit Labor precautions and FKC's reviewed - Cbc with Diff; Future - Group B Streptococcus By PCR - Gc & Chlamydia Amplified Assay - Trichomonas Amplified Assay 3. Other obesity affecting in third trimester Weight gain stable 4. Unstable lie, antepartum, single or unspecified fetus - Cephalic on BSUS - OB Ultrasound Transabdominal, Limited (>14 wks) VLADIMIR in 1 week or PRN Future Appointments In 1 week Jocelyn Yeboah MD [facility] Jocelyn Yeboah MD [facility] 2024-05-21 08:45:00 Age: [age] year old GA: 32w2d 1. High-risk in third trimester 2. 32 weeks gestation of PTL precautions and FKC's reviewed with patient Monitor for vaginal bleeding, loss of fluid, and/or contractions - Monitor for symptoms of preeclampsia (headache, visual disturbances, epigastric (under right ribs) pain, and increased blood pressure - If there is a perceived decrease in movement, monitor kick counts. Drink glass of water or juice and rest on left side for approximately two hours. If you feel 10 kicks (movements) over a period of two hours, this is normal. If you do not feel the fetus moving, present to OB clinic or antepartum unit at the [facility] - POCT Urinalysis w/o Specific [place] 3. Other obesity affecting in third trimester Stable VLADIMIR in 2 weeks Future Appointments In 2 weeks Dorys Lemon DNP [facility] In 4 weeks Jocelyn Yeboah MD [facility] Jocelyn Yeboah MD [facility] 2024-05-01 09:15:00 Age: [age] year old GA: 29w3d 1. High-risk in second trimester 2. 29 weeks gestation of - no concerns 3rd trimester teaching done- reviewed S/S of PTL (contractions, leakage of fluid and Vaginal bleeding) and also FKC. Also dicussed B-H, pelvic and lower back pains- expectations and differences with S/S of PTL She plans to breast feed BC options reviewed- Progesterone only pill Peds: On- call - POCT Urinalysis w/o Specific [place] - TDAP VACCINE, >10 YRS, IM 3. Need for Tdap vaccination - TDAP VACCINE, >10 YRS, IM 4. Other obesity affecting in second trimester - Weight gain stable VLADIMIR in 2 weeks or PRN Future Appointments In 2 weeks Jocelyn Yeboah MD [facility] Jocelyn Yeboah MD [facility] 2024-04-29 09:08:16 Patient notified rx for vitamins sent to pharmacy on file. No further complaints or concerns. Meghana Nava RN 04/29/2024 9:13 AM [facility] 2024-04-08 09:45:00 Gave pt 50 Glucola - No red dye allergy- No issues Pt started @ 0942 Pt ended @ 0943 Will draw pt @ 1043 [facility] 2024-04-08 09:45:00 Images from the original note were not included. Venipuncture collection performed by clean technique on the right anticubitus. Total of 1 attempts were made. Slight pressure and a bandage/dressing were applied to the site(s). The patient experienced no complications. The following specimens were processed according to instructions and sent to [facility] laboratories per lab order on 04/08/2024 : LT BLUE SST 2 RED 1 LAV 2 PPT DK GREEN (LiHep) DK GREEN (SodH) MURILLO DK BLUE (K2) DK BLUE (S) ACD Blood Culture NIPT/NTD [facility] 2024-04-03 16:00:00 Age: [age] year old GA: 25w3d 1. High-risk in second trimester 2. 25 weeks gestation of - doing well -28 weeks labs in 1-3 weks - POCT Urinalysis w/o Specific [place] - ADC or [place] Only - Rpr; Future - Cbc with Diff; Future - Glucose 1 Hour Post Prandial; Future - Workup, Blood Bank; Future - HIV 1/2 Ag-Ab with Reflex; Future 3. Other obesity affecting in second trimester Weight stable VLADIMIR in 3 weeks or PRN Jocelyn Yeboah MD [facility] 2024-03-06 11:15:00 Age: [age] year old GA: 21w3d 1. High-risk in second trimester 2. 21 weeks gestation of - dizzy spells have improved/resolved since she starting wearing compression socks and keeping adequately hydrated - Anatomy scan scheduled for this monday - POCT Urinalysis w/o Specific [place] 3. Other obesity affecting in first trimester - Weight gain stable VLADIMIR in 4 weeks or PRN Jocelyn Yeboah MD T [facility] 2024-02-07 12:15:00 Images from the original note were not included. Venipuncture collection performed by clean technique on the right anticubitus. Total of 1 attempts were made. Slight pressure and a bandage/dressing were applied to the site(s). The patient experienced no complications. The following specimens were processed according to instructions and sent to [facility] laboratories per lab order on 02/07/2024 : LT BLUE SST 1 RED LAV PPT DK GREEN (LiHep) DK GREEN (SodH) MURILLO DK BLUE (K2) DK BLUE (S) ACD Blood Culture NIPT/NTD T [facility] 2024-02-07 11:00:00 Age: [age] year old GA: 17w3d 1. High-risk in second trimester 2. 17 weeks gestation of - MsAFP ordered - c/o two episodes of dizzy spells/lightheadedness. Denies CP/palpitations Advised to keep hydrated, eat regular meals and let me know if symptoms become persistent. BP on the lower end of normal- advised compression sockings - CONSULT MATERNAL MEDICINE ULTRASOUND - POCT Urinalysis w/o Specific [place] - Alpha Fetoprotein-Maternal Ser; Future 3. Other obesity affecting in first trimester 4. BMI 38.0-38.9,adult - CONSULT MATERNAL MEDICINE ULTRASOUND - POCT Urinalysis w/o Specific [place] - Alpha Fetoprotein-Maternal Ser; Future VLADIMIR in 4 weeks or PRN Jocelyn Yeboah MD T [facility] 2024-01-19 15:41:53 Images from the original note were not included. David results received via fax. Spoke with patient, name and verified. Patient informed of results excluding gender and verbalized understanding. Results signed, will scan and upload a copy to [employer]. Sue Soler MA [facility] 2024-01-18 10:43:05 Fax received from [facility] informing us that due to patients insurance, they have changed the Horizon panel from 14 to 4. No further action required. Sue Soler MA [facility] 2024-01-10 12:00:00 DAVID KIT: TRK# [id number] Tala Reyes 01/10/2024 12:08 PM RETTE AND FILTER CHIEF INSPECTOR Tala Reyes [facility] 2024-01-10 11:00:00 Age: [age] year old GA: 13w3d 1. High-risk in second trimester 2. 13 weeks gestation of - no concerns -NIPT kit provided 3. Other obesity affecting in first trimester 4. BMI 37.0-37.9, adult - Stable weight VLADIMIR in 4 weeks Jocelyn Yeboah MD [facility] 2024-01-03 08:00:00 Images from the original note were not included. Venipuncture collection performed by clean technique on the left anticubitus. Total of 1 attempts were made. Slight pressure and a bandage/dressing were applied to the site(s). The patient experienced no complications. The following specimens were processed according to instructions and sent to [facility] laboratories per lab order on 01/03/2024 : LT BLUE SST 3 RED 1 LAV 3 PPT DK GREEN (LiHep) DK GREEN (SodH) MURILLO DK BLUE (K2) DK BLUE (S) ACD Blood Culture NIPT/NTD Patient has been identified by and name and was provided with cup, antiseptic towelette, and clean catch instructions. 2 urine specimen(s) sent. Unpreserved 1 Urine Culture 1 Aptima tube Other urine [facility] 2023-12-13 14:30:00 Age: [age] year old GA: 9w3d Latisha Florian is 18 year old at 11w2 by LMP presents for Initial OB visit today. She reports that she was seen at [facility] ER on 11/15 for abdominal pain and was told that she was 5w3d on the scan. Denies vaginal bleeding, abdominal pain or cramps. 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 was unexpected but they are happy Sonogram confirmed an IUP at 9w3d gestation with an EDC of 07/14/2024 Assessment/Plan High-risk in first trimester (primary encounter diagnosis) Missed menses 9 weeks gestation of examination or test, positive result Discussed do's and don'ts of , safe foods, safe medications. NOB folder given We discussed course, labs, aneuploidy and genetic carrier screening and ultrasounds. Expectations for weight gain this include 11- 20 pounds. Exercise in discussed and encouraged. aneuploidy options were reviewed including NIPT: cFDNA test and 2nd trimester QUAD screen. The benefits and short falls of these screening tests were reviewed. Also discussed diagnostic tests: CVS vs amniocentesis. She is undecided on the testing, written information were provided and we will discuss further at next appointment. Reviewed Zika virus precautions .Discussed about COVID-19/flu precautions. Social distancing, frequent hand washings, signs/symptoms for testing and to follow CDC recommendations discussed. She has received 2 doses of COVID vaccination I discussed the call schedule and that I deliver here at [facility]. I discussed that I have two partners, Dr. Manzanares and Dr. Jaimes and that they may deliver her or take care of her during her . I discussed that at [facility] we do not have a NICU, and that high risk pregnancies or deliveries less than 36 weeks will be transferred to [place]. All questions were answered. NOB labs today precautions reviewed Encouraged to call if have any additional questions or concerns. Plan: Workup, Blood Bank, Hcv Antibody, Cbc with Diff, HIV 1/2 Ag-Ab with Reflex, VZV Antibody Screen, Gc & Chlamydia Amplified Assay, Trichomonas Amplified Assay, Rubella Screen IgG, ADC or [place] Only - Rpr, Hepatitis B Surface Antigen, Urine Culture, Urine Drug (Immunoassay) - Comprehensive Drug Screen, POCT Test, POCT Urinalysis w/o Specific [place], Glycosylated Hemoglobin (A1C) Other obesity affecting in first trimester BMI 30.0-30.9,adult - reviewed weight gain for her BMI - Weight gain 11- 20lbs Encounter to determine viability of , single or unspecified fetus Plan: OB Ultrasound Transvaginal [facility]
[2024-09-05 12:45] LABS: Absolute Basophils 0.1 K/uL (0-0.5); Absolute Eosinophils 0.2 K/uL (0-0.5); Absolute Neutrophil 7.2 K/uL (1.8-8.0); Basophils % 0.5 % (0-1.3); Eosinophils % 1.6 % (0-4.4); Hematocrit 40.1 % (36.0-45.0); Hemoglobin 12.8 g/dL (12.0-15.0); Lymphocytes % 26.4 % (15.3-44.8); MCHC 31.8 g/dL (32.0-36.0); MCV 84.8 fL (80-100); MPV 7.5 fL (7.6-11.3); Neutrophils % 62.5 % (41.7-73.7); Platelets 370 thou/uL (152-406); RBC Red Blood Cell Count 4.73 M/uL (3.86-4.86); Red Cell Distribution Width 14.3 % (12.1-15.2)
[2024-09-05] MEDS ORDERED: KETOROLAC 30 MG/ML INJ ONE (12:56)
[2024-09-05] MEDS ORDERED: FAMOTIDINE 20 MG/2 ML VIAL IV ONE (12:56)
[2024-09-05 13:02] LABS: BUN Blood Urea Nitrogen 13 mg/dL (7-18); Bicarbonate 29 mEq/L (21-32); Glomerular Filtration Rate 128 ml/min (=/>90); Glucose Level 95 mg/dL (74-106); Sodium Level 139 mEq/L (136-145)
[2024-09-05 13:03] LABS: Troponin High Sensitivity < 3.0 pg/mL (<58.9)
--- NOTE | 2024-09-05 13:11 | RAD REPORT ---
Procedure: Chest Single View HISTORY: Chest pain COMPARISON: July 2024 FINDINGS: The lungs appear clear of acute infiltrate. No significant pleural effusion noted. The heart is normal size. IMPRESSION: No acute abnormality is displayed.
--- NOTE | 2024-09-05 13:41 | ER ---
Nurse's Notes [facility] Name: Corrie Florian Age: 19 yrs Sex: Female : 2005 Arrival Date: 09/05/2024 Time: 12:01 Bed 13 Private MD: Diagnosis: Chest pain, unspecified Presentation: 09/05 12:11 Chief complaint: Patient states: chest pain started about 1000, no other symptoms. ko1 Coronavirus screen: At this time, the client does not indicate any symptoms associated with coronavirus-19. Ebola Screen: No symptoms or risks identified at this time. Initial Sepsis Screen: Does the patient meet any 2 criteria? No. Patient's initial sepsis screen is negative. Does the patient have a suspected source of infection? No. Patient's initial sepsis screen is negative. Risk Assessment: Do you want to hurt yourself or someone else? Patient reports no desire to harm self or others. Onset of symptoms was September 05, 2024. 12:11 Method Of Arrival: Ambulatory ko1 12:11 Acuity: RADHA 3 ko1 Triage Assessment: 12:13 General: Appears in no apparent distress. Behavior is calm, cooperative, appropriate ko1 for age. Pain: Complains of pain in xiphoid area. Cardiovascular: Reports chest pain. 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 - Infectious Disease History:: Denies. - Social history:: Smoking status: . Screenin:20 [facility] ED Fall Risk Assessment (Adult) History of falling in the last 3 months, rs5 including since admission No falls in past 3 months (0 pts) Confusion or Disorientation No (0 pts) Intoxicated or Sedated No (0 pts) Impaired Gait No (0 pts) Mobility Assist Device Used No (0 pt) Altered Elimination No (0 pt) Score/Fall Risk Level 0 - 2 = Low Risk Oriented to surroundings, Maintained a safe environment. Abuse screen: Denies threats or abuse. Nutritional screening: No deficits noted. Tuberculosis screening: No symptoms or risk factors identified. Assessment: 12:20 General: Appears in no apparent distress. uncomfortable, Behavior is calm, cooperative. rs5 Pain: Complains of pain in chest Pain does not radiate. Pain currently is 3 out of 10 on a pain scale. Quality of pain is described as aching, Pain began. 12:20 Neuro: Level of Consciousness is awake, alert, obeys commands, Oriented to person, rs5 place, time, situation. Cardiovascular: Patient's skin is warm and dry. Respiratory: Airway is patent Respiratory effort is even, unlabored, Respiratory pattern is regular, symmetrical. GI: Abdomen is round non-distended, Abd is soft and non tender X 4 quads. : No signs and/or symptoms were reported regarding the genitourinary system. EENT: No signs and/or symptoms were reported regarding the EENT system. Derm: Skin is intact, Skin is pink, warm \T\ dry. Musculoskeletal: Range of motion: intact in all extremities. 13:35 Reassessment: Patient and/or family updated on plan of care and expected duration. Pain rs5 level reassessed. Patient is alert, oriented x 3, equal unlabored respirations, skin warm/dry/pink. Vital Signs: 12:13 BP 101 / 64; Pulse 92; Resp 15; Temp 97; Pulse Ox 100% ; ko1 13:50 BP 110 / 70; Pulse 78; Resp 17; Pulse Ox 99% on R/A; rs5 ED Course: 12:04 Patient arrived in ED. mg5 12:10 Darin Rodriguez MD is Attending Physician. ec2 12:13 Triage completed. ko1 12:13 Arm band placed on right wrist. Patient placed in an exam room, on a stretcher, on ko1 monitoring manager, on pulse oximetry, Patient notified of wait time. 12:20 Patient has correct armband on for positive identification. Placed in gown. Bed in low rs5 position. Call light in reach. Side rails up X2. Client placed on continuous cardiac and pulse oximetry monitoring. NIBP monitoring applied. classroom monitor on. Pulse ox on. 12:20 No provider procedures requiring assistance completed. Patient maintains SpO2 rs5 saturation greater than 95% on room air. 12:26 Sky, Alexander, RN is Primary Nurse. rs5 12:57 XRAY Chest (1 view) In Process Unspecified. EDMS 13:10 Provided Education on: discharge instructions . rs5 13:57 IV discontinued, intact, bleeding controlled, No redness/swelling at site. Pressure rs5 dressing applied. Administered Medications: 12:30 Drug: Ketorolac IVP 15 mg IVP once Route: IVP; Site: right antecubital; rs5 13:01 Follow up: Response: No adverse reaction; Pain is decreased rs5 12:30 Drug: Famotidine IVP 20 mg IVP once; dilute with 10 mL 0.9% NaCl; give over 2 minutes rs5 Route: IVP; Site: right antecubital; 13:01 Follow up: Response: No adverse reaction rs5 Medication: 13:50 VIS not applicable for this client. rs5 Outcome: 13:41 Discharge ordered by . ec2 13:57 Discharged to home ambulatory, rs5 13:57 Condition: stable rs5 13:57 Discharge instructions given to patient, family, Instructed on discharge instructions, follow up and referral plans. Demonstrated understanding of instructions, follow-up care, 13:58 Patient left the ED. rs5 Signatures: Dispatcher [employer] EDMS Debbie Knox RN RN ko1 Alexander Sky, JESSE RN rs5 Rin Escalante mg5 Darin Rodriguez MD MD ec2 Corrections: (The following items were deleted from the chart) 12:13 12:13 PMHx: None; ko1 ko1 12:13 12:13 PMHx: Pneumonia; ko1 ko1 17:18 13:35 BP 110 / 70; Pulse 78bpm; Resp 17bpm; Pulse Ox 99% RA; rs5 rs5
--- NOTE | 2024-09-05 13:41 | EDPHYS ---
Physician Documentation [facility] Name: Corrie Florian Age: 19 yrs Sex: Female : 2005 Arrival Date: 09/05/2024 Time: 12:01 Bed 13 Private MD: ED Physician Darni Rodriguez HPI: 09/05 12:25 This 19 yrs old Female presents to ER via Ambulatory with complaints of Chest ec2 Pain. 12:25 Patient arrives today for evaluation of chest pain. Patient reports that she is having ec2 chest pain that onset of this morning. Patient reports similar episodes of pain in the past. Patient reports no specific alleviating factors, states that the pain does worsen with drinking. Patient reports no vomiting, no diarrhea. Patient is 2 months . Patient reports otherwise no significant medical problems and no daily medications.. 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 - Infectious Disease History:: Denies. - Social history:: Smoking status: . ROS: 12:25 Constitutional: as per hpi ec2 Exam: 12:25 Constitutional: GEN: NAD Head: atraumatic Eyes: EOMI Ears: External ears are ec2 normal. CV: regular rate LUNGS: no respiratory distress ABD: non-distended SKIN: no evidence of rashes MSK: no evidence of trauma Vital Signs: 12:13 BP 101 / 64; Pulse 92; Resp 15; Temp 97; Pulse Ox 100% ; ko1 13:50 BP 110 / 70; Pulse 78; Resp 17; Pulse Ox 99% on R/A; rs5 MDM: 12:10 Medical Screening Exam initiated ec2 12:25 Data reviewed: vital signs. ED course: Patient arrives today for evaluation of chest ec2 pain. Examination remarkable for well-appearing nontoxic dividual's otherwise in no acute distress. Will obtain lab work, EKG, chest x-ray. Differential includes ACS, GERD, lower suspicion for PE or dissection . 13:11 ED course: EKG independently reviewed and interpreted by me, shows normal sinus rhythm, ec2 rate of 80, no acute ST segment elevations, intervals are nonactionable. . 13:33 ED course: Lab work is unrevealing. On reassessment patient remains well-appearing no ec2 acute distress. Will discharge home and have the patient follow-up outpatient with primary care. Return precautions given.. 09/05 12:19 Order name: Basic Metabolic Panel; Complete Time: 13:22 ec2 09/05 12:19 Order name: CBC with Diff; Complete Time: 13:22 ec2 09/05 12:19 Order name: Troponin HS; Complete Time: 13:22 ec2 09/05 12:19 Order name: Test, Serum; Complete Time: 13:41 ec2 09/05 12:19 Order name: XRAY Chest (1 view); Complete Time: 13:22 ec2 09/05 12:19 Order name: Cardiac monitoring; Complete Time: 13:17 ec2 09/05 12:19 Order name: EKG - Nurse/Tech; Complete Time: 13:17 ec2 09/05 12:19 Order name: IV Saline Lock; Complete Time: 13:17 ec2 09/05 12:19 Order name: Labs collected and sent; Complete Time: 13:17 ec2 09/05 12:19 Order name: O2 Per Protocol; Complete Time: 13:17 ec2 09/05 12:19 Order name: O2 Sat Monitoring; Complete Time: 13:17 ec2 Administered Medications: 12:30 Drug: Ketorolac IVP 15 mg IVP once Route: IVP; Site: right antecubital; rs5 13:01 Follow up: Response: No adverse reaction; Pain is decreased rs5 12:30 Drug: Famotidine IVP 20 mg IVP once; dilute with 10 mL 0.9% NaCl; give over 2 minutes rs5 Route: IVP; Site: right antecubital; 13:01 Follow up: Response: No adverse reaction rs5 Disposition Summary: 09/05/24 13:41 Discharge Ordered Notes: Location: Home ec2 Condition: Stable ec2 Diagnosis - Chest pain, unspecified ec2 Followup: ec2 - With: Private Physician - When: - Reason: Re-evaluation by your physician Discharge Instructions: - Discharge Summary Sheet ec2 - Nonspecific Chest Pain, Adult ec2 Forms: - Medication Reconciliation Form ec2 - Antibiotic Education ec2 - Prescription Opioid Use ec2 - Patient Portal Instructions ec2 - Leadership Thank You Letter ec2 Prescriptions: - Pepcid 20 mg Oral Tablet - take 1 tablet ORAL route once daily; 20 tablet; Refills: 0, Product Selection ec2 Permitted Signatures: Dispatcher [employer] Debbie Han RN RN ko1 Alexander Sky RN RN rs5 Darin Rodriguez MD MD ec2 Corrections: (The following items were deleted from the chart) 12:13 12:13 PMHx: None; ko1 ko1 12: 12:13 PMHx: Pneumonia; ko1 ko1 12:19 12:19 BASIC METABOLIC PANEL+C.LAB.BRZ ordered. EDMS EDMS 12:19 12:19 CBC+H.LAB.BRZ ordered. EDMS EDMS 12:19 12:19 Troponin High Sensitivity+C.LAB.BRZ ordered. EDMS EDMS 12:19 12:19 TEST, SERUM+SC.LAB.BRZ ordered. EDMS EDMS 12:19 12:19 Chest Single View+RAD.RAD.BRZ ordered. EDMS EDMS
[2024-09-05 14:03] VITALS: BP 101/64; TEMP 97; O2SAT 100
--- NOTE | 2024-09-09 12:24 | EKG ---
Test Date: 2024-09-05 Test Time: 13:03:56 Radiology Therapist: MANJU MEASUREMENT RESULTS: Intervals: Rate: 80 HI: 166 QRSD: 88 QT: 358 QTc: 412 [place]: P: 27 HI: 166 QRS: 64 T: 42 INTERPRETIVE STATEMENTS: Normal sinus rhythm Normal ECG Compared to ECG 08/04/2024 04:36:02 T-wave abnormality no longer present Electronically Signed On 09-09-24 12:17:45 MANAGER OF MAINTENANCE by Sven Love
== END 2024-09-05 13:58 | disposition home or self-care (01) ==
LOC: ER 12:01
DX: R07.9 Chest pain, unspecified (principal)
CPT/HCPCS: 36415; 71045; 80048; 84484; 84703; 85025; 93005; 96374; 96375; 99284

== ENCOUNTER 2024-11-27 05:11 | Inpatient (IN) | payer OTHER ==
--- OUTSIDE RECORDS SUMMARY | 2024-11-27 05:15 | XMS REPORT | Continuity of Care Document ---
Author Name Unknown Address [address] [facility] [address] [place] [address] [facility] Address [address] [facility] [address] [place] [address] Care Team Providers Care Medical Economics Consultant Name Role Phone Pcp, Patient Does Not Have A Primary Care Physic ki JOCELYN YEBOAH Attending Clinician Unavailable JOCELYN YEBOAH Attending Clinician Unavailable Jocelyn Yeboah MD Attending Clinician [phone] Sergey Rivers MD Attending Clinician [phone] 2, [facility] Attending Clinician Unavailable DORYS LEMON Attending Clinician Unavailable Doctor Unassigned, [place] Attending Clinician U TRACY Gleason Attending Clinician Unavailable TRACY QUINONES Attending Clinician Unavailable 2, [facility] Us Room Attending Clinician UnavailTracy Florence MD Attending Clinician [phone] Lab, Ang - Db Attending Clinician Unavailable Ultrasound, Ang-Mfm Attending Clinician Unavaila ble AMY CARDENAS Attending Clinician Unavailable AMY CARDENAS Attending Clinician Unavailable JOCELYN YEBOAH Admitting Clinician Unavailable Jocelyn Yeboah MD Admitting Clinician [phone] Payers Payer Name Policy Type Policy Number Effective Date Expirati on Date Source [facility]MERLY [facility] [id number] 2024 00:00:00 [place] [id number] 2023 00:00:00 Problems Condition Name Condition Details Condition Category Status Onset Date Resolution Date Last Treatment Date Treating Clinician Comments Source Uterine contractio ns Uterine contractio ns Disease Active 2024-0 8-28 00:00: 00 [facility] Morbid obesity with body mass index of 40.0-49.9 Morbid obesity with body mass index of 40.0-49.9 Disease Resolve d 2023-0 8-28 00:00: 00 2024-08-13 00:00:00 2024-08-13 16:05:34 [facility] Liveborn infant, of [place] , born in hospital by vaginal delivery Liveborn , of [place] , born in hospital by vaginal delivery Disease Resolve d 2023-0 8-28 00:00: 00 2024-08-13 00:00:00 2024-08-13 15:58:53 [facility] 38 weeks gestation of 38 weeks gestation of Disease Resolve d 0 2-07 00:00: 00 2024-08-13 00:00:00 2024-08-13 15:58:53 [facility] Other obesity affecting in first trimester Other obesity affecting in first trimester Disease Resolve d 0 2-07 00:00: 00 2024-08-13 00:00:00 2024-08-13 16:05:35 [facility] High-risk in first trimester High-risk in first trimester Disease Resolve d 0 2-07 00:00: 00 2024-06-18 00:00:00 2024-06-18 09:27:10 [facility] 9 weeks gestation of 9 weeks gestation of Disease Resolve d 0 2-07 00:00: 00 2024-06-04 00:00:00 2024-06-04 13:52:45 [facility] BMI 37.0-37.9, adult BMI 37.0-37.9, adult Disease Resolve d 2-07 00:00: 00 2024-06-04 00:00:00 2024-06-04 13:52:52 [facility] Allergies, Adverse Reactions, Alerts Allergy Name Allergy Type Status Severity Reaction(s) Onset Date Inactive Date Treating Clinician Comments Source AMOXICIL JOZEF DRUG INGREDI Active Other-Cmnt 2-07 00:00: 00 [facility] CAT DANDER DRUG INGREDI Active ITCHING 2023-0 2-07 00:00: 00 [facility] DOG DANDER DRUG INGREDI Active ITCHING 2023-0 2-07 00:00: 00 [facility] FLUTICAS ONE FUROATE DRUG INGREDI Active Other-Cmnt 2023-0 2-07 00:00: 00 [facility] HOUSE DUST DRUG INGREDI Active ITCHING 2023-0 2-07 00:00: 00 [facility] IBUPROFE N DRUG INGREDI Active Other-Cmnt 2023-0 2-07 00:00: 00 [facility] POLLEN EXTRACTS DRUG INGREDI Active ITCHING 2023-0 2-07 00:00: 00 [facility] Amoxicil jozef Drug Allergy Active Other - See comments 2023-0 2- 00:00: 00 [facility] Cat Dander Drug Allergy Active Rash 2023-0 2-07 00:00: 00 [facility] Dog Dander Drug Allergy Active Rash 2023-0 2-07 00:00: 00 [facility] Fluticas one Furoate Drug Allergy Active Other - See comments 2023-0 2-07 00:00: 00 [facility] House Dust Drug Allergy Active Itching 2023-0 2-07 00:00: 00 [facility] Ibuprofe n Drug Allergy Active Other - See comments 2023-0 2-07 00:00: 00 [facility] Pollen Extracts Drug Allergy Active Rash 2023-0 2-07 00:00: 00 [facility] NO KNOWN ALLERGIE S Drug Class Active [facility] Social History Social Habit Start Date Stop Date Quantity Comments Source ASSERTION 2023-10-22 00:00:00 [facility] Alcoholic beverage intake 2024-07-05 00:00:00 2024-07-05 00:00:00 Ex-drinker (finding) [facility] Tobacco use and exposure 2024-07-05 00:00:00 2024-07-05 00:00:00 Smokeless tobacco non-user [facility] History of Social function 2024-07-02 00:00:00 2024-07-02 00:00:00 [facility] Alcohol intake 2024-03-06 00:00:00 2024-03-06 00:00:00 Ex-drinker (finding) [facility] Sex assigned at 2003 00:00:00 2005 00:00:00 [facility] Smoking Status Start Date Stop Date Source Tobacco smoking consumption unknown [facility] Never smoked tobacco [facility] Medications Ordered Medication Name Filled Medication Name Start Date Stop Date Current Medication? Ordering Clinician Indication Dosage Frequency Signature (SIG) Comments Components Source norethindro ne 0.35 mg tablet 2023-11 00:00: 00 Yes [id number] 1{tbl} Take 1 tablet by mouth in the morning. [facility] vitamin w/FA tablet 07-05 00:00: 00 Yes [id number] 1{tbl} Take 1 tablet by mouth in the morning. [facility] witch Bowen (TUCKS) 50 % topical pad 07-04 13:34: 34 Yes Topical, PRN, Starting on Mon07/04/24 at 0834, Until Discontinu ed, Routine, Pain (scale 1-3), Pain (scale 4-6), Pain (scale 7-10) [facility] HYDROcodone -acetaminop hen (NORCO 5) tablet 1 tablet 07-04 04:57: 40 Yes 1{tbl} 1 tablet, Oral, Q6HPRN, Starting on Mon07/03/24 at 2357, Until Discontinu ed, Routine, Pain (scale 7-10) [facility] acetaminoph en (TYLENOL) tablet 650 mg 07-04 04:57: 40 Yes 650mg 650 mg, Oral, Q6HPRN, Starting on Mon07/03/24 at 2357, Until Discontinu ed, Routine, Pain (scale 1-3) [facility] diphenhydrA MINE (BENADRYL) tablet 25 mg 07-04 04:57: 40 Yes 25mg [facility] ondansetron (ZOFRAN (PF)) injection 4 mg 07-04 04:57: 40 Yes 4mg [facility] simethicone (GAS RELIEF (SIMETHICON E)) chewable tablet 160 mg 07-04 04:57: 40 Yes 160mg [facility] docusate (COLACE) capsule 200 mg 07-04 04:57: 40 Yes 200mg [facility] magnesium hydroxide (MILK OF MAGNESIA) 400 mg/5 mL suspension 30 mL 07-04 04:57: 40 Yes 30mL [facility] benzocaine- menthol (DERMOPLAST ) 20-0.5 % topical spray 07-04 04:57: 39 Yes Topical, PRN, Starting on Mon07/03/24 at 2357, Until Discontinu ed, Routine, Perineum discomfort [facility] fentaNYL-ro pivacaine 2 mcg/mL-0.1 % (PF) in NS 200 mL epidural infusion RTU 07-04 01:48: 00 07-04 11:19 :28 No Intra-op [facility] FENTanyl (PF) (SUBLIMAZE) injection 100 mcg 07-04 00:25: 59 07-04 05:03 :17 No 100ug 100 mcg, Slow IV Push, Q1HPRN, Starting on Mon07/03/24 at 1925, Until Bekah 07/04/24 at 0003, Routine, Pain (scale 7-10) [facility] oxytocin (PITOCIN) 30 units in NS 500 mL IV infusion 07-04 00:25: 59 07-04 05:03 :17 No 2mU/min at 2-40 mL/hr, IV Infusion, TITRATE, Starting on Mon07/03/24 at 1925, Until Bekah 07/04/24 at 0003, Routine [facility] D5W-LR IV infusion 1,000 mL 07-04 00:25: 59 07-04 05:03 :17 No 1000mL at 1-125 mL/hr, IV Infusion, TITRATE, Starting on Mon07/03/24 at 1925, Until Bekah 07/04/24 at 0003, Routine [facility] vit no.124/iron /folic ( VITAMIN ORAL) 04-29 09:10: 46 04-29 00:00 :00 No Take by mouth. [facility] vitamin w/FA tablet 04-29 00:00: 00 07-05 00:00 :00 No 1{tbl} Take 1 tablet by mouth in the morning. [facility] vit no.124/iron /folic ( VITAMIN ORAL) 04-03 15:55: 20 Yes Take by mouth. [facility] vit no.124/iron /folic ( VITAMIN ORAL) 01-09 11:06: 21 Yes Take by mouth. [facility] Immunizations Ordered Immunization Name Filled Immunization Name Date Status Comments Source TDAP 2024-05-01 00:00:00 Completed [facility] TDAP 2024-05-01 00:00:00 Completed [facility] TDAP Unknown Completed [facility] TDAP Unknown Completed [facility] TDAP Unknown Completed [facility] TDAP Unknown Completed [facility] TDAP Unknown Completed [facility] TDAP Unknown Completed [facility] TDAP Unknown Completed [facility] TDAP Unknown Completed [facility] TDAP Unknown Completed [facility] TDAP Unknown Completed [facility] Vital Signs Vital Name Observation Time Observation Value Comments S ource Systolic blood pressure 2024-08-13 20:45:00 110 mm[Hg] [facility] Diastolic blood pressure 2024-08-13 20:45:00 69 mm[Hg] [facility] Heart rate 2024-08-13 20:45:00 75 /min [facility] Body temperature 2024-08-13 20:45:00 36.61 Antonieta [facility] Respiratory rate 2024-08-13 20:45:00 18 /min [facility] Body height 2024-08-13 20:45:00 162.6 cm [facility] Body weight 2024-08-13 20:45:00 99.292 kg [facility] BMI 2024-08-13 20:45:00 37.57 kg/m2 [facility] Systolic blood pressure 2024-07-05 14:45:00 111 mm[Hg] [facility] Diastolic blood pressure 2024-07-05 14:45:00 67 mm[Hg] [facility] Heart rate 2024-07-05 14:45:00 90 /min [facility] Body temperature 2024-07-05 14:45:00 36.56 Antonieta [facility] Respiratory rate 2024-07-05 14:45:00 16 /min [facility] Oxygen saturation in Arterial blood by Pulse oximetry 2024-07-05 14:45:00 98 /min [facility] Body weight 2024-07-04 00:00:00 106.142 kg [facility] BMI 2024-07-04 00:00:00 40.17 kg/m2 [facility] Body height 2024-07-03 23:49:00 162.6 cm [facility] Systolic blood pressure 2024-07-02 20:40:00 111 mm[Hg] [facility] Diastolic blood pressure 2024-07-02 20:40:00 76 mm[Hg] [facility] Heart rate 2024-07-02 20:40:00 90 [facility] Body temperature 2024-07-02 20:40:00 36.44 Antonieta [facility] Respiratory rate 2024-07-02 20:40:00 18 /min [facility] Body height 2024-07-02 20:40:00 160 cm [facility] Body weight 2024-07-02 20:40:00 107.321 kg [facility] BMI 2024-07-02 20:40:00 41.91 kg/m2 [facility] Systolic blood pressure 2024-06-25 21:31:00 115 mm[Hg] [facility] Diastolic blood pressure 2024-06-25 21:31:00 85 mm[Hg] [facility] Heart rate 2024-06-25 21:31:00 108 /min [facility] Respiratory rate 2024-06-25 21:31:00 17 /min [facility] Body height 2024-06-25 21:31:00 160 cm [facility] Body weight 2024-06-25 21:31:00 107.049 kg [facility] BMI 2024-06-25 21:31:00 41.81 kg/m2 [facility] Systolic blood pressure 2024-06-18 13:31:00 126 mm[Hg] [facility] Diastolic blood pressure 2024-06-18 13:31:00 85 mm[Hg] [facility] Heart rate 2024-06-18 13:31:00 103 /min [facility] Body temperature 2024-06-18 13:31:00 36.17 Antonieta [facility] Respiratory rate 2024-06-18 13:31:00 18 /min [facility] Body height 2024-06-18 13:31:00 162.6 cm [facility] Body weight 2024-06-18 13:31:00 105.688 kg [facility] BMI 2024-06-18 13:31:00 39.99 kg/m2 [facility] Systolic blood pressure 2024-06-04 16:01:00 113 mm[Hg] [facility] Diastolic blood pressure 2024-06-04 16:01:00 78 mm[Hg] [facility] Heart rate 2024-06-04 16:01:00 104 /min [facility] Body temperature 2024-06-04 16:01:00 36.22 Antonieta [facility] Body weight 2024-06-04 16:01:00 105.597 kg [facility] BMI 2024-06-04 16:01:00 39.96 kg/m2 [facility] Systolic blood pressure 2024-05-21 14:01:00 117 mm[Hg] [facility] Diastolic blood pressure 2024-05-21 14:01:00 80 mm[Hg] [facility] Heart rate 2024-05-21 14:01:00 112 /min [facility] Body temperature 2024-05-21 14:01:00 36.61 Antonieta [facility] Respiratory rate 2024-05-21 14:01:00 16 /min [facility] Body height 2024-05-21 14:01:00 162.6 cm [facility] Body weight 2024-05-21 14:01:00 103.602 kg [facility] BMI 2024-05-21 14:01:00 39.20 kg/m2 [facility] Oxygen saturation in Arterial blood by Pulse oximetry 2024-05-21 14:01:00 99 /min [facility] Systolic blood pressure 2024-05-01 14:09:00 116 mm[Hg] [facility] Diastolic blood pressure 2024-05-01 14:09:00 81 mm[Hg] [facility] Heart rate 2024-05-01 14:09:00 97 /min [facility] Respiratory rate 2024-05-01 14:09:00 15 /min [facility] Body height 2024-05-01 14:09:00 160 cm [facility] Body weight 2024-05-01 14:09:00 102.105 kg [facility] BMI 2024-05-01 14:09:00 39.87 kg/m2 [facility] Systolic blood pressure 2024-04-03 21:02:00 112 mm[Hg] [facility] Diastolic blood pressure 2024-04-03 21:02:00 77 mm[Hg] [facility] Heart rate 2024-04-03 21:02:00 94 /min [facility] Respiratory rate 2024-04-03 21:02:00 18 /min [facility] Body height 2024-04-03 21:02:00 160 cm [facility] Body weight 2024-04-03 21:02:00 101.606 kg [facility] BMI 2024-04-03 21:02:00 39.68 kg/m2 [facility] Systolic blood pressure 2024-03-06 16:12:00 117 mm[Hg] [facility] Diastolic blood pressure 2024-03-06 16:12:00 83 mm[Hg] [facility] Heart rate 2024-03-06 16:12:00 94 /min [facility] Body temperature 2024-03-06 16:12:00 36.56 Antonieta [facility] Respiratory rate 2024-03-06 16:12:00 16 /min [facility] Body height 2024-03-06 16:12:00 160 cm [facility] Body weight 2024-03-06 16:12:00 100.699 kg [facility] BMI 2024-03-06 16:12:00 39.33 kg/m2 [facility] Systolic blood pressure 2024-02-07 15:57:00 106 mm[Hg] [facility] Diastolic blood pressure 2024-02-07 15:57:00 66 mm[Hg] [facility] Heart rate 2024-02-07 15:57:00 94 /min [facility] Body temperature 2024-02-07 15:57:00 36.72 Antonieta [facility] Respiratory rate 2024-02-07 15:57:00 16 /min [facility] Body height 2024-02-07 15:57:00 160 cm [facility] Body weight 2024-02-07 15:57:00 98.431 kg [facility] BMI 2024-02-07 15:57:00 38.44 kg/m2 [facility] Body weight 2024-01-10 17:05:00 95.907 kg [facility] BMI 2024-01-10 17:05:00 37.45 kg/m2 [facility] Systolic blood pressure 2024-01-10 17:05:00 93 mm[Hg] [facility] Diastolic blood pressure 2024-01-10 17:05:00 68 mm[Hg] [facility] Heart rate 2024-01-10 17:05:00 93 /min [facility] Body temperature 2024-01-10 17:05:00 36.89 Antonieta [facility] Respiratory rate 2024-01-10 17:05:00 16 /min [facility] Body height 2024-01-10 17:05:00 160 cm [facility] Systolic blood pressure 2023-12-13 20:40:00 96 mm[Hg] [facility] Diastolic blood pressure 2023-12-13 20:40:00 66 mm[Hg] [facility] Heart rate 2023-12-13 20:40:00 87 /min [facility] Body temperature 2023-12-13 20:40:00 36.78 Antonieta [facility] Respiratory rate 2023-12-13 20:40:00 16 /min [facility] Body height 2023-12-13 20:40:00 160 cm [facility] Body weight 2023-12-13 20:40:00 95.8 kg [facility] BMI 2023-12-13 20:40:00 37.41 kg/m2 [facility] Oxygen saturation in Arterial blood by Pulse oximetry 2023-12-13 20:40:00 97 /min [facility] Procedures Procedure Date / Time Performed Performing Clinician Source POCT TEST 2024-08-13 00:00:00 Adum, Jocelyn Hernadez [facility] CBC WITH DIFF 2024-07-04 09:12:00 Adum, Jocelyn Maria [facility] CENTRAL NEURAXIAL BLOCK 2024-07-04 02:45:00 Sergey Rivers [facility] CBC WITH DIFF 2024-07-04 00:47:00 [facility] HEPATITIS B SURFACE ANTIGEN 2024-07-04 00:47:00 Adum, Jocelyn Hernadez [facility] HB ABO GROUPING 2024-07-04 00:47:00 Adum, Jocelyn Lazar [facility] ADC OR FILI ONLY - RPR 2024-07-04 00:47:00 Adum, Jocelyn Hernadez [facility] HIV 1/2 AG-AB WITH REFLEX 2024-07-04 00:47:00 Adum, Jocelyn Hernadez [facility] POCT URINALYSIS W/O SPECIFIC GRAVITY 2024-07-02 00:00:00 Adum, Jocelyn Hernadez [facility] POCT URINALYSIS W/O SPECIFIC GRAVITY 2024-06-25 00:00:00 Adum, Jocelyn Hernadez [facility] >14 WEEKS US LIMITED 2024-06-18 14:31:28 Adum, Jocelyn Hernadez [facility] POCT URINALYSIS W/O SPECIFIC GRAVITY 2024-06-18 00:00:00 Adum, Jocelyn Hernadez [facility] POCT URINALYSIS W/O SPECIFIC GRAVITY 2024-06-04 00:00:00 Dorys Lemon [facility] POCT URINALYSIS W/O SPECIFIC GRAVITY 2024-05-21 00:00:00 Adum, Jocelyn Hernadez [facility] TDAP VACCINE, >11 YRS, IM 2024-05-01 14:19:11 Adum, Jocelyn Hernadez [facility] POCT URINALYSIS W/O SPECIFIC GRAVITY 2024-05-01 00:00:00 Adum, Jocelyn Hernadez [facility] SECOND AND THIRD TRIMESTER ULTRASOUND 2024-04-08 18:29:00 Adum, Jocelyn Hernadez [facility] POCT URINALYSIS W/O SPECIFIC GRAVITY 2024-04-03 00:00:00 Adum, Jocelyn Hernadez [facility] SECOND AND THIRD TRIMESTER ULTRASOUND 2024-03-08 15:08:25 Adum, Jocelyn Hernadez [facility] POCT URINALYSIS W/O SPECIFIC GRAVITY 2024-03-06 00:00:00 Adum, Jocelyn Hernadez [facility] POCT URINALYSIS W/O SPECIFIC GRAVITY 2024-02-07 00:00:00 Adum, Jocelyn Hernadez [facility] SCANNED LAB RESULTS 2024-01-10 06:01:00 Doctor Julia ruelas, [place] [facility] POCT URINALYSIS W/O SPECIFIC GRAVITY 2024-01-10 00:00:00 Adum, Jocelyn Hernadez [facility] US OB TRANSVAGINAL 2023-12-13 21:35:07 Adum, Jocelyn L [facility] ASSIGNMENT OF BENEFITS 2023-12-13 20:14:13 Docto r Unassigned, [place] [facility] POCT TEST 2023-12-13 00:00:00 Obinna Jocelyn Satya [facility] POCT URINALYSIS W/O SPECIFIC GRAVITY 2023-12-13 00:00:00 Obinna Jocelyn L [facility] Encounters Start Date/Time End Date/Time Encounter Type Admission Type Attending [facility] Care Department Encounter ID Source 2024-07-02 16:37:02 Outpatient P ADJOCELYN MEADE [facility] YELIT[facility] [id number] [facility] 2024-07-24 00:00:00 2024-08-24 18:21:35 Patient Secure Msg Jocelyn Yeboah [facility] [id number] 350.1.13.10 4.2.7.2.686 [id number] [facility] 2024-08-13 16:00:00 2024-08-13 16:17:33 Outpatient R ADJOCELYN MEADE [facility] [id number] [facility] 2024-08-13 16:00:00 2024-08-13 16:17:33 Routine Visit Obinna Jocelyn Hernadez [facility] 1..840.114 350.1.13.10 4.2.7.2.686 [id number] [facility] 2024-06-27 00:00:00 2024-08-03 18:28:28 Patient Secure Msg Jocelyn Yeboah [facility] [id number] 350.1.13.10 4.2.7.2.686 [id number] [facility] 2024-07-03 18:50:00 2024-07-05 12:25:00 Inpatient X ADJOCELYN MEADE [facility] [id number] [facility] 2024-07-03 18:50:00 2024-07-05 12:25:00 Hospital Encounter Jocelyn Yeboah [facility] 1.2.840.114 350.1.13.10 4.2.7.2.686 [id number] [facility] 2024-07-03 00:00:00 2024-07-04 07:48:22 Patient Secure M[facility] 1.2840.114 350.1.13.10 4.2.7.2.686 [id number] [facility] 2024-07-03 20:40:00 2024-07-04 01:19:00 Anesthesia Event Sergey Rivers [facility] 1.2840.114 350.1.13.10 4.2.7.2.686 [id number] [facility] 2024-07-02 15:30:00 2024-07-02 16:13:51 Outpatient R ADJOCELYN MEADE [facility] [id number] [facility] 2024-07-02 15:30:00 2024-07-02 16:13:51 [facility] 1.2840.114 350.1.13.10 4.2.7.2.686 [id number] [facility] 2024-06-25 16:15:00 2024-06-25 16:52:19 Outpatient R JOCELYN YEBOAH [facility] [id number] [facility] 2024-06-25 16:15:00 2024-06-25 16:52:19 [facility] 1.2840.114 350.1.13.10 4.2.7.2.686 [id number] [facility] 2024-06-18 13:00:00 2024-06-18 13:00:00 Outpatient R JOCELYN YEBOAH [facility] [id number] [facility] 2024-06-18 09:30:00 2024-06-18 09:45:00 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 2, Adc Lab Jocelyn Yeboah 2, Adc Lab [facility] 1.2.840.114 350.1.13.10 4.2.7.2.686 [id number] [facility] 2024-06-18 08:45:00 2024-06-18 09:27:16 Outpatient R JOCELYN YEBOAH [facility] [id number] [facility] 2024-06-18 08:45:00 2024-06-18 09:27:16 Routine Visit Jocelyn Yeboah [facility] 1.2.840.114 350.1.13.10 4.2.7.2.686 [id number] [facility] 2024-06-04 11:00:00 2024-06-04 11:10:29 Outpatient R DORYS LEMON [facility] [id number] [facility] 2024-06-04 11:00:00 2024-06-04 11:10:29 Routine Visit Dorys Lemon [facility] 1.2.840.114 350.1.13.10 4.2.7.2.686 [id number] [facility] 2024-04-26 00:00:00 2024-06-01 18:25:49 Patient Secure Msg Doctor Unassigned, [place] [facility] 1.2.840.114 350.1.13.10 4.2.7.2.686 [id number] [facility] [facility] 2024-05-21 08:45:00 2024-05-21 09:26:16 Outpatient R ADJOCELYN MEADE [facility] [id number] [facility] 2024-05-21 08:45:00 2024-05-21 09:26:16 Routine Visit AdJocelyn meade [facility] 1.840.114 350.1.13.10 4.2.7.2.686 [id number] [facility] 2024-05-15 10:00:00 2024-05-15 10:00:00 Outpatient R JOCELYN YEBOAH [facility] [id number] [facility] 2024-05-01 09:15:00 2024-05-01 09:29:18 Outpatient R OBINNAJOCELYN INDRADESHAUN [facility] [id number] [facility] 2024-05-01 09:15:00 2024-05-01 09:29:18 Routine Visit IndraJocelyn meade [facility] 1.0.114 350.1.13.10 4.2.7.2.686 [id number] 134 [id number] [facility] 2024-04-25 00:00:00 2024-04-29 09:13:16 Patient Secure Msg IndraJocelyn meade [facility] 1.0.114 350.1.13.10 4.2.7.2.686 [id number] [facility] 2024-04-08 13:00:00 2024-04-08 13:30:28 Outpatient P TRACY QUINONES KARIN [facility] [id number] [facility] 2024-04-08 13:00:00 2024-04-08 13:30:28 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 2, [facility] Room Tracy Quinones [facility] SAP PP CONSULTANT [facility] 1.840.114 350.1.13.10 4.2.7.2.686 [id number] [facility] 2024-04-08 09:45:00 2024-04-08 10:00:00 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 Lab, Edvin Quinoens [facility] 1..114 350.1.13.10 4.2.7.2.686 [id number] [facility] 2024-04-08 08:00:00 2024-04-08 08:30:12 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 1..114 350.1.13.10 4.2.7.2.686 [id number] [facility] 2024-04-03 16:00:00 2024-04-03 16:18:28 Outpatient JOCELYN HUSSEIN [facility] [id number] [facility] 2024-04-03 16:00:00 2024-04-03 16:18:28 Routine Visit Jocelyn Yeboah [facility] 1..114 350.1.13.10 4.2.7.2.686 [id number] [facility] 2024-04-03 11:00:00 2024-04-03 11:00:00 Outpatient JOCELYN HUSSEIN [facility] [id number] [facility] 2024-03-08 08:45:00 2024-03-08 09:53:25 Outpatient AMY MARQUEZ AMY [facility] [id number] [facility] 2024-03-08 08:45:00 2024-03-08 09:53:25 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 Ultrasound, Amy Velasquez [facility] SAP PP CONSULTANT [facility] 1.2.840.114 350.1.13.10 4.2.7.2.686 [id number] [facility] 2024-03-08 00:00:00 2024-03-08 00:00:00 Case Management [facility] 1.2.840.114 350.1.13.10 4.2.7.2.686 [id number] [facility] 2024-03-06 11:15:00 2024-03-06 11:22:58 Outpatient R ADUM, [facility] [id number] [facility] 2024-03-06 11:15:00 2024-03-06 11:22:58 Routine Visit Ad, [facility] 1.2840.114 350.1.13.10 4.2.7.2.686 [id number] [facility] 2024-02-07 12:15:00 2024-02-07 12:30:00 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 Lab, Ang - Db Addeshaun, [facility] 1.2840.114 350.1.13.10 4.2.7.2.686 [id number] [facility] 2024-02-07 12:15:00 2024-02-07 12:15:00 Outpatient R ADUM, [facility] [id number] [facility] 2024-02-07 11:00:00 2024-02-07 11:28:41 Routine Visit Ad, [facility] 1.2840.114 350.1.13.10 4.2.7.2.686 [id number] [facility] 2024-01-19 00:00:00 2024-01-19 00:00:00 Telephone Adum, [facility] 1.2.840.114 350.1.13.10 4.2.7.2.686 [id number] [facility] 2024-01-18 00:00:00 2024-01-18 00:00:00 Telephone Adum, [facility] 1.2.840.114 350.1.13.10 4.2.7.2.686 [id number] [facility] 2024-01-10 12:00:00 2024-01-10 12:00:00 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 Lab, Edvin - Db [facility] 1.2840.114 350.1.13.10 4.2.7.2.686 [id number] [facility] 2024-01-10 11:00:00 2024-01-10 11:36:53 Outpatient R ADDESHAUN [facility] [id number] [facility] 2024-01-10 11:00:00 2024-01-10 11:36:53 Routine Visit Addeshaun, [facility] 1.2840.114 350.1.13.10 4.2.7.2.686 [id number] [facility] 2024-01-10 00:00:00 2024-01-10 00:00:00 Orders Only Doctor Unassigned, [facility] 1.840.114 350.1.13.10 4.2.7.2.686 [id number] [facility] 2024-01-03 08:00:00 2024-01-03 08:00:52 Outpatient R ADDESHAUN [facility] [id number] [facility] 2024-01-03 08:00:00 2024-01-03 08:00:52 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 Lab, Ang - Db Obinna, [facility] 1.840.114 350.1.13.10 4.2.7.2.686 [id number] [facility] 2024-01-03 00:00:00 2024-01-03 00:00:00 Patient Secure Msg Doctor Unassigned, [facility] 1.2840.114 350.1.13.10 4.2.7.2.686 [id number] [facility] 2023-12-13 14:30:00 2023-12-13 15:32:46 Outpatient R OBINNA JOCELYN [facility] [id number] [facility] 2023-12-13 14:30:00 2023-12-13 15:32:46 Initial Visit Jocelyn Yeboah [facility] 1.840.114 350.1.13.10 4.2.7.2.686 [id number] [facility] 2023-12-13 00:00:00 2023-12-13 00:00:00 Orders Only Doctor Unassigned, [facility] 1.20.114 350.1.13.10 4.2.7.2.686 [id number] [facility] 2023-12-12 14:30:00 2023-12-12 14:30:00 Outpatient R JOCELYN YEBOAH [facility] [id number] [facility] Results Test Description Test Time Test Comments Results Result Co mments Source [facility] with [id number] 09:53:34* Test Item Value Reference Range Interpretation [...] 32.7 g/dL 31.6-35.1 RDW-SD (test code = 87524-1) 43.1 fL 39.0-49.9 RDW-CV (test code = 788-0) 14.2 % 12.0-15.5 PLT (test code = 777-3) 391 166-358 H MPV (test code = 53122-7) 9.4 fL 9.5-12.9 L NRBC/100 WBC (test code = 2718623982) 0.0 0.0-10.0 NRBC x10^3 (test code = 5692538563) See_Comment [Automated message] The system which generated this result transmitted reference range: 10*3/?L. The reference range was not used to interpret this result as normal/abnormal. GRAN MAT (NEUT) % (test code = 770-8) 81.2 % IMM GRAN % (test code = 0894091530) 0.70 % LYMPH % (test code = 736-9) 11.7 % MONO % (test code = 5905-5) 6.2 % EOS % (test code = 713-8) 0.0 % BASO % (test code = 706-2) 0.2 % GRAN MAT x10^3(ANC) (test code = 2521384110) 14.52 10*3/uL 1.88-7.09 H IMM GRAN x10^3 (test code = 2016132752) 0.12 10*3/uL 0.00-0.06 H LYMPH x10^3 (test code = 731-0) 2.10 10*3/uL 1.32-3.29 MONO x10^3 (test code = 742-7) 1.11 10*3/uL 0.33-0.92 H EOS x10^3 (test code = 711-2) 0.03-0.39 L BASO x10^3 (test code = 704-7) 0.04 10*3/uL 0.01-0.07 Lab Interpretation (test code = 81708-8) Abnormal [facility] Surface [id number] 08:28:04 * Test Item Value Reference Range Interpretation Comme nts HBsAg Semi-Quantitative (matilda t code = 5195-3) 0.07 Negative [facility] OR FILI ONLY - [id number] 07:36:52* Test Item Value Reference Range Interpretation Comme nts RPR (Qualitative) (test code = 01095-3) Nonreactive Nonreactive Lab Interpretation (test cod e = 20468-4) Normal [facility]2 Ag-Ab with [id number] 02:45:33* Test Item Value Reference Range Interpretation Comme nts HIV Semi-quantitative (test code = 31306-0) 0.15 Negative MEAGAN (test code = MEAGAN) Non-reactive for HIV-1 antigen and HIV-1/HIV-2 antibodies. ?No laboratory evidence of HIV infection. ?Repeat in 2-4 weeks if acute HIV infection is suspected. [facility] [id number] 02:45:00 Sergey Rivers MD ? ? 07/03/2024 ?9:19 PM Central Neuraxial Block Date/Time: 07/03/2024 9:45 PM Performed by: Sergey Rivers [facility] by: Sergey Rivers MD ?Patient Location: [...] air and catheter ?Guidance with: landmark technique}Epidural/Spinal Tolna and/or Catheter: ?Epidural/Spinal Kit: [employer] [place] (BD) ?Needle Type: Tuohy ?Needle Gauge: 17 [...] and atraumatic, (+) Local, (+) [facility] Differential 2024-07-04 01:10:18* Test Item Value [...] 33.5 g/dL 31.6-35.1 RDW-SD (test code = 97253-8) 43.6 fL 39.0-49.9 RDW-CV (test code = 788-0) 14.2 % 12.0-15.5 PLT (test code = 777-3) 412 166-358 H MPV (test code = 56368-0) 9.6 fL 9.5-12.9 NRBC/100 WBC (test code = 3210659693) 0.0 0.0-10.0 NRBC x10^3 (test code = 8550376340) See_Comment [Automated message] The system which generated this result transmitted reference range: 10*3/?L. The reference range was not used to interpret this result as normal/abnormal. GRAN MAT (NEUT) % (test code = 770-8) 76.6 % IMM GRAN % (test code = 7930375312) 0.50 % LYMPH % (test code = 736-9) 16.0 % MONO % (test code = 5905-5) 6.5 % EOS % (test code = 713-8) 0.2 % BASO % (test code = 706-2) 0.2 % GRAN MAT x10^3(ANC) (test code = 2758893451) 10.29 10*3/uL 1.88-7.09 H IMM GRAN x10^3 (test code = 9424239100) 0.07 10*3/uL 0.00-0.06 H LYMPH x10^3 (test code = 731-0) 2.15 10*3/uL 1.32-3.29 MONO x10^3 (test code = 742-7) 0.87 10*3/uL 0.33-0.92 EOS x10^3 (test code = 711-2) 0.03 10*3/uL 0.03-0.39 BASO x10^3 (test code = 704-7) 0.03 10*3/uL 0.01-0.07 Lab Interpretation (test code = 93610-7) Abnormal [facility] Hospital[facility] and Screen - ONCE [id number] 01:02:00 * Test Item Value Reference Range Interpretation Comme nts ABO & RH (test code = 20) O POSITIVE IAT (test code = 1185) Negative [facility] HospitalPO[facility] Urinalysis w/o Specific [id number] 20:38:00* Test Item Value Reference Range Interpretation [...] = 3257) n/a Negative - Negati ve [facility] Urinalysis w/o Specific [id number] 21:29:00* Test Item Value Reference Range Interpretation [...] = 3257) n/a Negative - Negati ve [facility] Urinalysis w/o Specific Iyxdlkz6884-71-53 15:38:00* Test Item Value Reference Range Interpretation [...] = 3257) n/a Negative - Negati ve [facility] Urinalysis w/o Specific Mviqdhi3994-73-57 16:00:00* Test Item Value Reference Range Interpretation [...] = 3257) n.a Negative - Negati ve [facility] Urinalysis w/o Specific Mzaqxjw4430-11-58 13:59:00* Test Item Value Reference Range Interpretation [...] = 3257) n/a Negative - Negati ve [facility] Urinalysis w/o Specific Dbolasx1086-70-06 14:07:00* Test Item Value Reference Range Interpretation [...] = 3257) n/a Negative - [facility] Ldblibu0229-92-57 21:24:00* Test Item Value Reference Range Interpretation [...] = 3257) N/A Negative - Negati ve [facility] Urinalysis w/o Specific Jmomafp7720-86-23 16:10:00* Test Item Value Reference Range Interpretation [...] = 3257) n/a Negative - Negati ve [facility] Urinalysis w/o Specific Htmdzok8054-86-35 15:55:00* Test Item Value Reference Range Interpretation [...] = 3257) n/a Negative - Negati ve [facility] Urinalysis w/o Specific Uzcsjeb4176-11-62 17:06:00* Test Item Value Reference Range Interpretation [...] = 3257) n/a Negative - Negati ve [facility] [id number] 22:32:00* Test Item Value Reference Range Interpretation Comme nts POCT PREG (test code = 1605) Positive On board controls acceptable with C Line (test code = 3574) Yes POCT PREG LOT # (test code = 3575) POCT PREG TEST DATE ( test code = 3576) [facility] Urinalysis w/o Specific [id number] 22:32:00* Test Item Value Reference Range Interpretation [...] = 3257) n/a Negative - Negati ve [facility] History and Physical Notes Date/Time Note Provider [...] 2-4 min - SVE: /0 - Mode: [place]: REVIEW OF LABORATORY, PATHOLOGY, AND RADIOLOGY DATA [...] low Anticipate vaginal delivery Jocelyn Yeboah MD [facility] Procedure Notes Date/Time Note Provider Source 2024-07-03 [...] and catheter Guidance with: landmark technique} Epidural/Spinal Tolna and/or Catheter: Epidural/Spinal Kit: [employer] ([employer]) Needle Type: Tuohy Needle Gauge: 17 G [...] Smooth and atraumatic, (+) Local, (+) STF [facility]
[2024-11-27] MEDS ORDERED: FAMOTIDINE 20 MG/2 ML VIAL IV ONE (05:22)
[2024-11-27] MEDS ORDERED: NA CHLORIDE 0.9% 1,000 ML ONE ×3 (05:22→11:20)
[2024-11-27] MEDS ORDERED: ONDANSETRON 4 MG/2 ML VIAL ONE ×3 (05:22→14:36)
[2024-11-27] MEDS ORDERED: MORPHINE 4 MG/ML SYR ONE ×2 (05:26→11:20)
[2024-11-27] MEDS ORDERED: MORPHINE 2 MG/ML SYR ONE (05:26)
[2024-11-27 05:32] LABS: Absolute Basophils 0.1 K/uL (0-0.5); Absolute Eosinophils 0.1 K/uL (0-0.5); Absolute Monocytes 0.8 K/uL (0.1-1.3); Basophils % 0.5 % (0-1.3); Eosinophils % 0.9 % (0-4.4); Hematocrit 38.6 % (36.0-45.0); Lymphocytes % 24.6 % (15.3-44.8); MCH 27.7 pg (27.0-35.0); MCHC 33.8 g/dL (32.0-36.0); MCV 82.1 fL (80-100); MPV 7.4 fL (7.6-11.3); Platelets 377 thou/uL (152-406); Red Cell Distribution Width 13.4 % (12.1-15.2)
[2024-11-27 05:52] LABS: Albumin 2.8 g/dL (3.4-5.0); Albumin/Globulin Ratio 0.8 (1.1-1.8); Bilirubin Total 0.5 mg/dL (0.2-1.0); Globulin 3.6 g/dL (2.3-3.5); Protein, Total 6.4 g/dL (6.4-8.2)
[2024-11-27 06:41] LABS: SARS-CoV-2 Antigen CONTROL BLUE LINE VIS/BG OK; SARS-CoV-2 Antigen Rapid Res Negative (Negative)
[2024-11-27 07:11] LABS: Specific Gravity 1.013 (1.005-1.030)
[2024-11-27 07:16] LABS: Specific Gravity 1.013 (1.005-1.030); Urine Bilirubin NEGATIVE (Negative); Urine Blood Negative (Negative); Urine Clarity Clear (Clear); Urine Color Light-Yellow (Yellow); Urine Glucose NEGATIVE (Negative); Urine Ketones NEGATIVE (Negative); Urine Microscopic Reflex YN NO UMIC; Urine Nitrite NEGATIVE (Negative); Urine Protein NEGATIVE (Negative); Urine Urobilinogen Normal (Normal)
--- NOTE | 2024-11-27 07:58 | RAD REPORT ---
EXAMINATION: CT ABDOMEN AND PELVIS WITH CONTRAST CLINICAL INDICATION: Abdominal pain TECHNIQUE: CT abdomen and pelvis was performed, after the administration of 100 cc Isovue-300.. Sagit jose and coronal reconstructions were obtained. One or more of the following dose reduction techniques were used: Automated exposure control, adjustment of the mA and kV according to patient si ze, and iterative reconstruction. Unless otherwise specified, incidental findings do not require dedicated imaging follow-up. [id number]. Oral contrast was not given which limits evaluation of bowel and appendix. COMPARISON: .None FINDINGS: Multiple gallstones. The gallbladder is distended. Liver, spleen, pancreas, adrenals and kidneys appear unremarkable No evidence of diverticulitis. Appendicolith is present within the appendix. The appendix is borderline enlarged. No stranding withi n the adjacent fat. 3 cm right ovarian cyst. No follow-up imaging recommended. No significant free fluid. Small umbilical hernia : IMPRESSION: Cholelithiasis. Gallbladder distention Borderline dilatation of the appendix. An appendicolith is present. No stranding within the adjacent fat. I suspect this does not represent appendicitis. However, this is possible it should be correlated clinically. 3 cm right ovarian cyst.
--- NOTE | 2024-11-27 09:18 | EDPHYS ---
Physician Documentation [facility] Name: Corrie Florian Age: 19 yrs Sex: Female : 2005 Arrival Date: 11/27/2024 Time: 05:11 Bed 16 Private MD: ED Physician Elieser Loomis HPI: 11/27 05:18 This 19 yrs old Female presents to ER via EMS with complaints of Abdominal sp4 Pain. 07:01 19-year-old female presents with EMS for acute moderate to severe right upper quadrant sp4 abdominal pain starting at midnight associated with 2 episodes of vomiting. 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 - Infectious Disease History:: Denies. - Social history:: Smoking status: Patient denies any tobacco usage or history of. Patient/guardian denies using alcohol, street drugs. - Family history:: not pertinent. ROS: 07:01 Constitutional: Negative for fever, chills, and weight loss, positive for right upper sp4 quadrant abdominal pain positive for vomiting 07:01 All other systems are negative, Exam: 07:01 Constitutional: This is a well developed, well nourished patient who is awake, alert, sp4 and in no acute distress. Head/Face: Normocephalic, atraumatic. Eyes: Pupils equal round and reactive to light, extra-ocular motions intact. Lids and lashes normal. Conjunctiva and sclera are not injected. Cornea within normal limits. Periorbital areas with no swelling, redness, or edema. ENT: Nares patent. No nasal discharge, no septal abnormalities noted. Tympanic membranes are normal and external auditory canals are clear. Oropharynx with no redness, swelling, or masses, exudates, or evidence of obstruction, uvula midline. Mucous membranes moist. Neck: Trachea midline, no thyromegaly or masses palpated, and no cervical lymphadenopathy. Supple, full range of motion without nuchal rigidity, or vertebral point tenderness. Chest/axilla: Normal chest wall appearance and motion. Nontender with no deformity. No lesions are appreciated. Cardiovascular: Regular rate and rhythm with a normal S1 and S2. No gallops, murmurs, or rubs. Normal PMI, no JVD. No pulse deficits. Respiratory: Lungs have equal breath sounds bilaterally, clear to auscultation and percussion. No rales, rhonchi or wheezes noted. No increased work of breathing, no retractions or nasal flaring. Abdomen/GI: Soft, with normal bowel sounds. No distension or tympany. Positive guarding negative rebound positive right upper quadrant tenderness with positive Agrawal sign Back: No spinal tenderness. No costovertebral tenderness. Skin: Warm, dry with normal turgor. Normal color with no rashes, no lesions, and no evidence of cellulitis. MS/ Extremity: Pulses equal, no cyanosis. Neurovascular intact. Full, normal range of motion. Neuro: Awake and alert, GCS 15, oriented to person, place, time, and situation. Cranial nerves II-XII grossly intact. Motor strength 5/5 in all extremities. Sensory grossly intact. Psych: Awake, alert, with orientation to person, place and time. Behavior, mood, and affect are within normal limits Vital Signs: 05:13 BP 166 / 77; Pulse 85; Resp 17 S; Temp 97.6(O); Pulse Ox 100% on R/A; Weight 104.33 kg lg3 (R); Height 5 ft. 4 in. (R); 06:11 BP 95 / 75; Pulse 81; Resp 17; Temp 97.6; Pulse Ox 100% ; Pain 3/10; bm8 06:51 BP 111 / 80; Pulse 73; Resp 18; Temp 97.6; Pulse Ox 100% ; Pain 3/10; bm8 08:01 BP 143 / 84; Pulse 65; Resp 16; Pulse Ox 100% ; bp 10:55 Pain 8/10; cm10 05:13 Body Mass Index 39.48 (104.33 kg, 162.56 cm) lg3 06:11 Pain Scale: Adult bm8 06:51 Pain Scale: Adult bm8 10:55 Pain Scale: Adult cm10 [place] Coma Score: 06:51 Eye Response: spontaneous(4). Motor Response: obeys commands(6). Verbal Response: bm8 oriented(5). Total: 15. 07:01 Eye Response: spontaneous(4). Motor Response: obeys commands(6). Verbal Response: sp4 oriented(5). Total: 15. MDM: 05:20 Medical Screening Exam initiated sp4 07:02 Transition of care: Care assumed from Jonatan Tejada MD. ms3 07:03 Differential diagnosis: appendicitis, cholecystitis, Cholelithiasis, diverticulitis, sp4 Endometriosis, gastritis. Data reviewed: vital signs, nurses notes, EMS record, old medical records, radiologic studies, CT scan, ultrasound. Consideration of Admission/Observation Escalation of care including admission/observation considered. Transition of care: After a detail discussion of the patient's case, care is transferred to Elieser Loomis DO. ED course: Patient is awaiting on CT abdomen pelvis also and ultrasound report.. 11/27 05:19 Order name: CBC with Diff; Complete Time: 07:01 sp4 11/27 05:19 Order name: CMP; Complete Time: 07:01 sp4 11/27 05:19 Order name: Lipase; Complete Time: 07:01 sp4 11/27 05:19 Order name: Test, Urine; Complete Time: 07:28 sp4 11/27 05:19 Order name: Urinalysis w/ reflexes; Complete Time: 07:28 sp4 11/27 05:36 Order name: Flu; Complete Time: 07:01 8 11/27 05:36 Order name: SARS RAPID; Complete Time: 07:01 8 11/27 05:19 Order name: CT Abd/Pelvis - IV Contrast Only; Complete Time: 08:05 sp4 11/27 05:28 Order name: US Abdomen Limited; Complete Time: 03:55 sp4 11/27 05:19 Order name: IV Saline Lock; Complete Time: 05:20 sp4 11/27 05:19 Order name: Labs collected and sent; Complete Time: 05:20 sp4 Administered Medications: 05:30 Drug: Famotidine IVP 20 mg IVP once; dilute with 10 mL 0.9% NaCl; give over 2 minutes lg3 Route: IVP; Site: left antecubital; 10:56 Follow up: Response: No adverse reaction cm10 05:30 Drug: Ondansetron IVP 4 mg IVP once; over 2 minutes Route: IVP; Site: left antecubital; lg3 10:56 Follow up: Response: No adverse reaction cm10 05:30 Drug: NS 0.9% IV 1000 ml IV at 1 bolus Per protocol; to be given as a bolus over 60 lg3 minutes Route: IV; Rate: 1 bolus; Site: left antecubital; 10:57 Follow up: Response: No adverse reaction; IV Status: Completed infusion; IV Intake: cm10 1000ml 05:30 Drug: NS 0.9% IV 1000 ml IV at 1 bolus Per protocol; to be given as a bolus over 60 lg3 minutes Route: IV; Rate: 1 bolus; Site: left antecubital; 10:55 Follow up: Response: No adverse reaction; IV Status: Completed infusion; IV Intake: cm10 1000ml 05:30 Drug: morphine IVP or IV 6 mg IVP once over 4 mins Route: IVP; Infused Over: 4 mins; lg3 Site: left antecubital; 10:55 Follow up: Pain 8/10 Adult; Response: No adverse reaction cm10 09:30 Drug: Ciprofloxacin IVPB 400 mg 200 ml IVPB once over 60 mins Volume: 200 ml; Route: bp IVPB; Infused Over: 60 mins; Site: left antecubital; 11:29 Follow up: Response: No adverse reaction; IV Status: Completed infusion; IV Intake: cm10 200ml 09:30 Drug: metroNIDAZOLE IVPB 500 mg 100 ml IVPB at 200 ml/hr once over 30 mins Volume: 100 bp ml; Route: IVPB; Rate: 200 ml/hr; Infused Over: 30 mins; Site: left antecubital; 10:56 Follow up: Response: No adverse reaction; IV Status: Completed infusion; IV Intake: cm10 100ml Disposition Summary: 11/27/24 09:17 Hospitalization Ordered Notes: Hospitalization Status: Inpatient Admission ms3 Provider: Leonardo Kaufman ms3 Condition: Stable ms3 Problem: new ms3 Symptoms: are unchanged ms3 Bed/Room Type: Standard ms3 Location: [facility] ER HOLD(11/27/24 10:16) bd Room Assignment: ERHOLD-(11/27/24 10:16) bd Diagnosis - Cholelithiasis ms3 - Upper abdominal pain, unspecified ms3 Forms: - Medication Reconciliation Form ms3 - SBAR form ms3 - Leadership Thank You Letter ms3 Signatures: Dispatcher [employer] EDMS DalyMiley bd Ho Carreon, RN RN bp Britney Osman RN RN lg3 Elieser Loomis, DO ms3 Jonatan Tejada MD MD sp4 Norma Colon RN cm10 Corrections: (The following items were deleted from the chart) 05:20 05:20 CBC+H.LAB.BRZ ordered. EDMS EDMS 05:20 05:20 COMPREHENSIVE METABOLIC PANEL+C.LAB.BRZ ordered. EDMS EDMS 05:20 05:20 LIPASE+C.LAB.BRZ ordered. EDMS EDMS 05:20 05:20 Test, Urine+UC.LAB.BRZ ordered. EDMS EDMS 05:20 05:20 Urinalysis+U.LAB.BRZ ordered. EDMS EDMS 05:20 05:20 Abdomen Pelvis W Con+CT.RAD.BRZ ordered. EDMS EDMS 10:16 09:17 Telemetry/MedSurg (Inpatient) ms3 bd 10:16 09:17 ms3 bd
--- NOTE | 2024-11-27 09:18 | ER ---
Nurse's Notes [facility] Name: Corrie Florian Age: 19 yrs Sex: Female : 2005 Arrival Date: 11/27/2024 Time: 05:11 Bed 16 Private MD: Diagnosis: Cholelithiasis;Upper abdominal pain, unspecified Presentation: 11/27 05:13 Chief complaint: Patient states: upper abdominal/epigastric pain since 0000 with 2 lg3 episodes of vomiting. 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 Coronavirus screen: Client denies travel out of the [place] in the last 14 days. At this time, the client does not indicate any symptoms associated with coronavirus-19. Ebola Screen: No symptoms or risks identified at this time. Initial Sepsis Screen: Does the patient meet any 2 criteria? No. Patient's initial sepsis screen is negative. Does the patient have a suspected source of infection? No. Patient's initial sepsis screen is negative. Risk Assessment: Do you want to hurt yourself or someone else? Patient reports no desire to harm self or others. Onset of symptoms was November 27, 2024. 05:13 Method Of Arrival: EMS: [facility] lg3 05:13 Acuity: RADHA 3 lg3 05:15 Care prior to arrival: Medication(s) given: zofran 4 mg, Toradol 15mg. lg3 Triage Assessment: 05:15 General: Appears in no apparent distress. comfortable, Behavior is calm, cooperative. lg3 Pain: Complains of pain in epigastric area, right upper quadrant and left upper quadrant Pain radiates to back. EENT: No deficits noted. No signs and/or symptoms were reported regarding the EENT system. Neuro: No deficits noted. [place]ura Agitation-Sedation Scale (RASS): 0 - Alert and Calm Level of Consciousness is awake, alert, obeys commands, Oriented to person, place, time, situation. Cardiovascular: No deficits noted. Denies chest pain, shortness of breath, Capillary refill < 3 seconds Clubbing of nail beds is absent JVD is absent Patient's skin is warm and dry. Respiratory: No deficits noted. Airway is patent Respiratory effort is even, unlabored, Respiratory pattern is regular, symmetrical. GI: Abdomen is round non-distended, obese, Reports upper abdominal pain, nausea, vomiting. : No signs and/or symptoms were reported regarding the genitourinary system. Derm: No deficits noted. No signs and/or symptoms reported regarding the dermatologic system. Skin is intact, is healthy with good turgor, Skin is dry, Skin is normal, Skin temperature is warm. Musculoskeletal: No deficits noted. No signs and/or symptoms reported regarding the musculoskeletal system. Circulation, motion, and sensation intact. Range of motion: intact in all extremities. 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 - Infectious Disease History:: Denies. - Social history:: Smoking status: Patient denies any tobacco usage or history of. Patient/guardian denies using alcohol, street drugs. - Family history:: not pertinent. Screenin:17 [facility] ED Fall Risk Assessment (Adult) History of falling in the last 3 months, lg3 including since admission No falls in past 3 months (0 pts) Confusion or Disorientation No (0 pts) Intoxicated or Sedated No (0 pts) Impaired Gait No (0 pts) Mobility Assist Device Used No (0 pt) Altered Elimination No (0 pt) Score/Fall Risk Level 0 - 2 = Low Risk Oriented to surroundings, Maintained a safe environment, Educated pt \T\ family on fall prevention, incl call for assistance when getting out of bed, Assessed \T\ reinforced patient's understanding of fall precautions. Abuse screen: Denies threats or abuse. Denies injuries from another. Nutritional screening: No deficits noted. Tuberculosis screening: No symptoms or risk factors identified. Assessment: 05:17 General: see triage assessment. lg3 06:11 Reassessment: Patient appears in no apparent distress at this time. Patient and/or bm8 family updated on plan of care and expected duration. Pain level reassessed. Patient is alert, oriented x 3, equal unlabored respirations, skin warm/dry/pink. Patient denies pain at this time. Patient states feeling better. Patient states symptoms have improved. Neuro: No deficits noted. Level of Consciousness is awake, alert, obeys commands, Oriented to person, place, time, situation, Appropriate for age. Cardiovascular: Capillary refill < 3 seconds in bilateral fingers Patient's skin is warm and dry. Respiratory: Airway is patent Respiratory effort is even, unlabored, Respiratory pattern is regular, symmetrical. GI: Abdomen is flat, non-distended, Bowel sounds present X 4 quads. Abd is soft and non tender. : No signs and/or symptoms were reported regarding the genitourinary system. EENT: No signs and/or symptoms were reported regarding the EENT system. Derm: No signs and/or symptoms reported regarding the dermatologic system. Musculoskeletal: No signs and/or symptoms reported regarding the musculoskeletal system. 06:51 Reassessment: Patient appears in no apparent distress at this time. No changes from bm8 previously documented assessment. Patient and/or family updated on plan of care and expected duration. Pain level reassessed. Patient is alert, oriented x 3, equal unlabored respirations, skin warm/dry/pink. pt up to restroom. 08:01 Reassessment: Patient appears in no apparent distress at this time. Patient is alert, bp oriented x 3, equal unlabored respirations, skin warm/dry/pink. Vital Signs: 05:13 BP 166 / 77; Pulse 85; Resp 17 S; Temp 97.6(O); Pulse Ox 100% on R/A; Weight 104.33 kg lg3 (R); Height 5 ft. 4 in. (R); 06:11 BP 95 / 75; Pulse 81; Resp 17; Temp 97.6; Pulse Ox 100% ; Pain 3/10; bm8 06:51 BP 111 / 80; Pulse 73; Resp 18; Temp 97.6; Pulse Ox 100% ; Pain 3/10; bm8 08:01 BP 143 / 84; Pulse 65; Resp 16; Pulse Ox 100% ; bp 10:55 Pain 8/10; cm10 05:13 Body Mass Index 39.48 (104.33 kg, 162.56 cm) lg3 06:11 Pain Scale: Adult bm8 06:51 Pain Scale: Adult bm8 10:55 Pain Scale: Adult cm10 [place] Coma Score: 06:51 Eye Response: spontaneous(4). Motor Response: obeys commands(6). Verbal Response: bm8 oriented(5). Total: 15. 07:01 Eye Response: spontaneous(4). Motor Response: obeys commands(6). Verbal Response: sp4 oriented(5). Total: 15. ED Course: 05:13 Patient arrived in ED. lg3 05:15 Triage completed. lg3 05:15 Arm band placed on right wrist. lg3 05:17 Patient has correct armband on for positive identification. Placed in gown. Bed in low lg3 position. Call light in reach. Side rails up X 1. Client placed on continuous cardiac and pulse oximetry monitoring. NIBP monitoring applied. Door closed. Noise minimized. Warm blanket given. Pillow given. 05:17 Initial lab(s) drawn, by ED staff, sent to lab. COVID swab sent to lab. Flu and/or RSV lg3 swab sent to lab. Maintain EMS IV. Dressing intact. Good blood return noted. Site clean \T\ dry. Gauge \T\ site: 20 LAC. Flushed with 10 mL NS. Patient maintains SpO2 saturation greater than 95% on room air. 05:18 Jonatan Tejada MD is Attending Physician. sp4 05:27 Dante Rose, RN is Primary Nurse. bm8 05:56 US Abdomen Limited In Process Unspecified. EDMS 05:56 Radiology exam delayed due to test not completed at this time. nj 06:41 Radiology exam delayed due to lab results not completed at this time. (HCG). nj 06:51 No provider procedures requiring assistance completed. bm8 07:02 Attending Physician role handed off by Jonatan Tejada MD ms3 07:02 Elieser Loomis DO is Attending Physician. ms3 07:42 CT Abd/Pelvis - IV Contrast Only In Process Unspecified. EDMS 08:16 Primary Nurse role handed off by Dante Rose, RN ll1 08:30 Ho Carreon, JESSE is Primary Nurse. bp 09:17 Leonardo Kaufman MD is Hospitalizing Provider. ms3 11:00 Provided Education on: Need for admit.. cm10 11:00 Patient admitted, IV remains in place. cm10 Administered Medications: 05:30 Drug: Famotidine IVP 20 mg IVP once; dilute with 10 mL 0.9% NaCl; give over 2 minutes lg3 Route: IVP; Site: left antecubital; 10:56 Follow up: Response: No adverse reaction cm10 05:30 Drug: Ondansetron IVP 4 mg IVP once; over 2 minutes Route: IVP; Site: left antecubital; lg3 10:56 Follow up: Response: No adverse reaction cm10 05:30 Drug: NS 0.9% IV 1000 ml IV at 1 bolus Per protocol; to be given as a bolus over 60 lg3 minutes Route: IV; Rate: 1 bolus; Site: left antecubital; 10:57 Follow up: Response: No adverse reaction; IV Status: Completed infusion; IV Intake: cm10 1000ml 05:30 Drug: NS 0.9% IV 1000 ml IV at 1 bolus Per protocol; to be given as a bolus over 60 lg3 minutes Route: IV; Rate: 1 bolus; Site: left antecubital; 10:55 Follow up: Response: No adverse reaction; IV Status: Completed infusion; IV Intake: cm10 1000ml 05:30 Drug: morphine IVP or IV 6 mg IVP once over 4 mins Route: IVP; Infused Over: 4 mins; lg3 Site: left antecubital; 10:55 Follow up: Pain 8 Adult; Response: No adverse reaction cm10 09:30 Drug: Ciprofloxacin IVPB 400 mg 200 ml IVPB once over 60 mins Volume: 200 ml; Route: bp IVPB; Infused Over: 60 mins; Site: left antecubital; 11:29 Follow up: Response: No adverse reaction; IV Status: Completed infusion; IV Intake: cm10 200ml 09:30 Drug: metroNIDAZOLE IVPB 500 mg 100 ml IVPB at 200 ml/hr once over 30 mins Volume: 100 bp ml; Route: IVPB; Rate: 200 ml/hr; Infused Over: 30 mins; Site: left antecubital; 10:56 Follow up: Response: No adverse reaction; IV Status: Completed infusion; IV Intake: cm10 100ml Medication: 06:51 VIS not applicable for this client. bm8 Intake: 10:55 IV: 1000ml; Total: 1000ml. cm10 10:56 IV: 100ml; Total: 1100ml. cm10 10:57 IV: 1000ml; Total: 2100ml. cm10 11:29 IV: 200ml; Total: 2300ml. cm10 Outcome: 09:17 Decision to Hospitalize by Provider. ms3 11:00 Admitted to ER Hold. Please see [facility] for further documentation. cm10 11:00 Condition: good 11:00 Instructed on the need for admit, 14:04 Patient left the ED. ll1 Signatures: Dispatcher [employer] EDMS Dave Castelan Brian, RN RN bp Brtiney Osman, RN RN lg3 Lisa Ward, RN RN ll1 Elieser Loomis, DO ms3 Jonatan Tejada MD MD sp4 Norma Colon, RN RN cm10 Dante Rose, RN RN bm8
[2024-11-27] MEDS ORDERED: CIPROFLOXACIN 400mg IV 400 MG/200 ML BAG IV ONE (09:36)
[2024-11-27] MEDS ORDERED: METRONIDAZOLE 500mg IVPB 500 MG/100 ML BAG IV ONE (09:36)
--- NOTE | 2024-11-27 10:36 | RAD REPORT ---
EXAM: US Abdomen Limited, Gallbladder CLINICAL HISTORY: The patient is 19 years old and is Female; Abdomen pain TECHNIQUE: Real-time ultrasound of the right upper quadrant with image documentation. COMPARISON: No relevant prior studies available. FINDINGS: Gallbladder: Gallbladder sludge at the neck. Cholelithiasis in the gallbladder fundus. Mildly dis tended gallbladder. Gallbladder wall thickness 1.6 mm. Negative sonographic Agrawal sign. Common bile duct: Common bile duct 4.3 mm in diameter. No stones. No dilation. Pancreas: Unremarkable as visualized. IMPRESSION: Cholelithiasis and sludge. Electronically signed by: Malia De Jesus MD 11/27/2024 07:29 AM [facility] [place] Due to temporary technical issues with the PACS/[employer] reporting system, reports are being signed by the in-house radiologist without review as a courtesy to ensure prompt reporting the interpreting radiologist is fully responsible for the content of the report. Transcribed Date/Time: 11/27/2024 10:35 AM
[2024-11-27] MEDS: MORPHINE 4 MG/ML SYR IV PRN (11:48)
[2024-11-27] MEDS: ONDANSETRON 4 MG/2 ML VIAL IV PRN (11:49)
[2024-11-27] MEDS: NA CHLORIDE 0.9% 1,000 ML IV SCH (11:49)
[2024-11-27 13:44] VITALS: BMI 39.4
[2024-11-27] MEDS ORDERED: FLU (Fluarix Triv) TS24-25(6MOS UP)/PF 45 MCG/0.5 ML Syringe IM ONE (14:00)
[2024-11-27] MEDS ORDERED: ROCURONIUM 50 MG/5 ML VIAL IV ONE ×2 (14:36→16:09)
[2024-11-27] MEDS ORDERED: NEOSTIGMINE 1 MG/ML -10 ML VIAL ONE (14:36)
[2024-11-27] MEDS ORDERED: GLYCOPYRROLATE 0.2 MG/ML SYR ONE (14:36)
[2024-11-27] MEDS ORDERED: LIDOCAINE 2% MPF 5 ML VIAL ONE (14:36)
[2024-11-27] MEDS ORDERED: MIDAZOLAM HCL 2 MG/2 ML INJ ONE (14:37)
[2024-11-27] MEDS ORDERED: FENTANYL CITR 100 MCG/2 ML ONE (14:37)
[2024-11-27] MEDS ORDERED: propofoL 200 MG/20 ML VIAL IV ONE (14:37)
--- NOTE | 2024-11-27 14:42 | P.HP ---
Date of Service: 11/27/24 PC: This 19-year-old female presented to the emergency room with severe abdominal pain for diagnosis and treatment. HPC: This 19-year-old female, 5 months , has been having abdominal pain off and on for the last few months. She has noted has been increasing both in intensity and duration over the last few weeks. Last night it was so severe she could hardly stand it. Located right upper quadrant, underneath her ribs, associated stated with nausea and vomiting. PSHx: G1, P1 PMHx: Negative Social Hx: Allergic to amoxicillin Sys R: No cough, wheeze, shortness of breath. No chest pain or palpitations. Is not currently breast-feeding. No urinary complaints. O/E: Awake alert vital signs are stable HEENT: Not jaundiced Chest: Negative Abd: Mild discomfort in the right upper quadrant, right lower quadrant negative Keller: Intact Data: Elevated white cell count, CT scan demonstrates distended gallbladder with stone seen around the neck of the gallbladder itself. Also has possible appendicolith. Impression: Acute on chronic cholecystitis with cholelithiasis Plan: I will take the patient to the operating room for laparoscopic cholecystectomy with an intraoperative cholangiogram. The risks of this procedure have been discussed. The possibility of bleeding, infection, injury to bile ducts blood vessels and intestines has been described. The possible need for an open end or further surgeries and procedures was discussed. We also described the appendicolith seen in her appendix. It is small she is not complaining of pain in that area unless that shows acute inflammation, will most likely leave it alone, and she can follow-up as an outpatient. I have explained this to her mom. They understand and want to proceed.
[2024-11-27] MEDS: SUCCINYLCHOLINE 20 MG/ML (10 ML) IV ONE (15:10)
[2024-11-27] MEDS: Ringers Lactate 1,000 ML IV ONE (16:00)
[2024-11-27] MEDS ORDERED: NS 0.9% VIAL 10 ML ONE (16:04)
[2024-11-27] MEDS ORDERED: Phenylephrine HCl 10 MG/ML 1 ML VIAL ONE (16:04)
--- NOTE | 2024-11-27 16:42 | P.OP ---
Preoperative diagnosis: Acute on chronic cholecystitis with cholelithiasis Postoperative diagnosis: the same Primary procedure: Laparoscopic cholecystectomy Secondary procedure: Cholangiogram Anesthesia: General Estimated blood loss: Less than 10 cc Specimen: 1 gallbladder and contents Operative Technique: The patient brought the operating room placed supine on the table. After the induction of adequate general endotracheal anesthesia, the area of the abdomen was prepped with a DuraPrep solution, she was draped in usual aseptic manner. Attention was turned towards the umbilicus. After injecting with 0.25% Marcaine, a skin incision was made. This was brought down through the skin and subcutaneous tissue. The Visiport was now used to carefully enter the peritoneal cavity and created pneumoperitoneum to approximately 12 mmHg. With the patient placed in reverse Trendelenburg and airplane to the left we could visualize the right upper quadrant. It was interesting to note the patient had a markedly distended gallbladder that showed a lot of edema underneath the serosal surface of the gallbladder itself. The grasper was placed on the fundus. Another placed on by Varghese's pouch. Applying lateral traction we were able to dissect out and expose both the cystic duct and artery. It was interesting to note the amount of edema that was around Varghese's pouch. A the cystic duct having been identified was milked back towards the gallbladder. A clip was placed between the gallbladder and the cystic duct. An opening was made into the cystic duct through which we obtained a normal intraoperative cholangiogram. The catheter was removed. Clips were placed on the distal portion of the cystic duct. The cystic artery was identified and clipped and divided in the usual way. The cystic duct was now transected with the Metzenbaum scissors. The gallbladder was then grasped around Varghese's pouch and applying lateral traction we were able to dissected from the liver bed, placed into the Endo Close, and bring it out through the umbilical trocar site. The liver bed was now inspected. It was irrigated with a saline solution. The irrigating fluid was aspirated from the peritoneal cavity. Adequate hemostasis having been ensured and no evidence of any bleeding or leakage, we turned our attention to the right lower quadrant. The patient was now placed in reverse Trendelenburg. The table was rolled to the left. We could see the cecum and identified the appendix. It appeared perfectly normal. No evidence of any inflammation was seen, no engorgement. At this point the patient was returned to the neutral position on the OR table. The umbilical trocar site was approximated using the Endo Close and an absorbable suture. The pneumoperitoneum was now collapsed, the suture tied, and tracy applied to the skin. At the end of the procedure she was in a stable condition when sent to the recovery room. Needle sponge instrument count were correct. No drains were placed. Transferred to: Recovery Room Condition: Good
[2024-11-27] MEDS ORDERED: HYDROCODONE/APAP 7.5/325 MG TAB PO PRN (16:50)
[2024-11-27] MEDS: HYDROMORPHONE HCL 1 MG/ML INJ ONE (17:00)
--- NOTE | 2024-11-27 17:20 | RAD REPORT ---
EXAM: Cholangiogram in surgery HISTORY: Cholelithiasis FINDINGS: Limited intraoperative fluoroscopic views were taken during a cholangiogram in surgery. Cystic duct injection performed by operating surgeon. Partially visualized common bile duct without gross abnormality. Fluoroscopic time: 0.4 minutes.
[2024-11-27] MEDS: HYDROCODONE/APAP 7.5/325 MG TAB PO PRN (22:34)
[2024-11-28 09:44] VITALS: O2SAT 90
[2024-11-28 11:59] VITALS: BP 118/57; TEMP 98.3
== END 2024-11-28 15:24 | disposition home or self-care (01) | DRG 263 ==
LOC: ER 05:11 → ERHOLD 09:15 → 4TH 17:28
PROVIDERS: ADMIT Surgery; ATTEND Surgery
PROC: BF522Z0 Other Imaging of Gallbladder using Fluorescing Agent, Intraoperative (ICD-10-PCS; 2024-11-27)
PROC: 0FT44ZZ Resection of Gallbladder, Percutaneous Endoscopic Approach (ICD-10-PCS; principal; 2024-11-27 14:30)
DX: K80.12 Calculus of gallbladder with acute and chronic cholecystitis without obstruction (principal); Z88.1 Allergy status to other antibiotic agents; Z88.8 Allergy status to other drugs, medicaments and biological substances; Z11.52 Encounter for screening for COVID-19
CPT/HCPCS: 36415; 74177; 74300; 76705; 80053; 81003; 81025; 83690; 85025; 87804; 87811; 88304; 94010; 96361; 96365; 96366; 96368; 96375; 99285; A4216; J0744; J1171; J2003; J2250; J2270; J2371; J2405; J2704; J2710; J3010; J7030; J7120; Q9967

== ENCOUNTER 2025-08-09 07:51 | Emergency (ER) | payer OTHER, SELFPAY ==
--- OUTSIDE RECORDS SUMMARY | 2025-08-09 07:56 | XMS REPORT | Continuity of Care Document ---
Author Name Unknown Address [address] [facility] [place] [address] [facility] Address [address] 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 Name Role Phone PCP, PATIENT DOES NOT HAVE A Primary Care Physic ki Unavailable JOCELYN YEBOAH Attending Clinician Unavailable JOCELYN YEBOAH Attending Clinician Unavailable Doctor Unassigned, [place] Attending Clinician U Jocelyn Baca MD Attending Clinician [phone] Sergey Rivers MD Attending Clinician [phone], [facility] Attending Clinician Unavailable DORYS LEMON Attending Clinician Unavailable Doctor Unassigned, [place] Attending Clinician U TRACY Gleason Attending Clinician Unavailable TRACY QUINONES Attending Clinician Unavailable 2, [facility] Attending Clinician UnavailTracy Florence MD Attending Clinician [phone] Lab, Ang - Db Attending Clinician Unavailable Ultrasound, Ang-m Attending Clinician Unavaila AMY James Attending Clinician Unavailable AMY ESTEVEZ Attending Clinician Unavailable JOCELYN YEBOAH Admitting Clinician Unavailable Jocelyn Yeboah MD Admitting Clinician [phone] Payers Payer Name Policy Type Policy Number Effective Date Expirati on Date Source [facility] [id number] 2024 00:00:00 [place] [id number] 2023 00:00:00 Problems Condition Name Condition Details Condition Category Status Onset Date Resolution Date Last Treatment Date Treating Clinician Comments Source Uterine contractio ns Uterine contractio ns Disease Active 07-03 00:00: 00 [facility] Morbid obesity with body mass index of 40.0-49.9 Morbid obesity with body mass index of 40.0-49.9 Disease Resolve d 2023-0 8- 00:00: 00 2024-08-13 00:00:00 2024-08-13 16:05:34 [facility] Liveborn , of [place] , born in hospital by vaginal delivery Liveborn , of [place] , born in hospital by vaginal delivery Disease Resolve d 0 8- 00:00: 00 2024-08-13 00:00:00 2024-08-13 15:58:53 [facility] 38 weeks gestation of 38 weeks gestation of Disease Resolve d - 00:00: 00 2024-08-13 00:00:00 2024-08-13 15:58:53 [facility] Other obesity affecting in first trimester Other obesity affecting in first trimester Disease Resolve d - 00:00: 00 2024-08-13 00:00:00 2024-08-13 16:05:35 [facility] High-risk in first trimester High-risk in first trimester Disease Resolve d 12-13 00:00: 00 2024-06-18 00:00:00 2024-06-18 09:27:10 [facility] 9 weeks gestation of 9 weeks gestation of Disease Resolve d 2- 00:00: 00 2024-06-04 00:00:00 2024-06-04 13:52:45 [facility] BMI 37.0-37.9, adult BMI 37.0-37.9, adult Disease Resolve d 2-07 00:00: 00 2024-06-04 00:00:00 2024-06-04 13:52:52 [facility] Allergies, Adverse Reactions, Alerts Allergy Name Allergy Type Status Severity Reaction(s) Onset Date Inactive Date Treating Clinician Comments Source Ibuprofe n Drug Allergy Active Other - See comments 2-07 00:00: 00 [facility] Pollen Extracts Drug Allergy Active Rash 2023-0 2-07 00:00: 00 [facility] AMOXICIL JOZEF DRUG INGREDI Active Other-Cmnt 2023-0 2-07 00:00: 00 [facility] CAT DANDER DRUG INGREDI Active ITCHING 4-0 2-07 00:00: 00 [facility] DOG DANDER DRUG INGREDI Active ITCHING 2023-0 2-07 00:00: 00 [facility] FLUTICAS ONE FUROATE DRUG INGREDI Active Other-Cmnt 2023-0 2-07 00:00: 00 [facility] HOUSE DUST DRUG INGREDI Active ITCHING 2023-0 2-07 00:00: 00 [facility] IBUPROFE N DRUG INGREDI Active Other-Cmnt 2023-0 2-07 00:00: 00 [facility] POLLEN EXTRACTS DRUG INGREDI Active ITCHING 2023-0 2-07 00:00: 00 [facility] Amoxicil jozef Drug Allergy Active Other - See comments 2023-0 2-07 00:00: 00 [facility] Cat Dander Drug Allergy Active Rash 2023-0 2-07 00:00: 00 [facility] Dog Dander Drug Allergy Active Rash 2023-0 2-07 00:00: 00 [facility] Fluticas one Furoate Drug Allergy Active Other - See comments 2023-0 2-07 00:00: 00 [facility] House Dust Drug Allergy Active Itching 2023-0 2-07 00:00: 00 [facility] NO KNOWN ALLERGIE S Drug Class Active [facility] Social History Social Habit Start Date Stop Date Quantity Comments Source ASSERTION 2023-10-22 00:00:00 [facility] History of Social function 2024-07-02 00:00:00 2024-07-02 00:00:00 [facility] Alcoholic beverage intake 2024-06-18 00:00:00 2024-06-18 00:00:00 Ex-drinker (finding) [facility] Alcohol intake 2024-03-06 00:00:00 2024-03-06 00:00:00 Ex-drinker (finding) [facility] Tobacco use and exposure 2023-12-13 00:00:00 2023-12-13 00:00:00 Smokeless tobacco non-user [facility] Sex assigned at 2003 00:00:00 2005 00:00:00 [facility] Smoking Status Start Date Stop Date Source Tobacco smoking consumption unknown [facility] Never smoked tobacco [facility] Medications Ordered Medication Name Filled Medication Name Start Date Stop Date Current Medication? Ordering Clinician Indication Dosage Frequency Signature (SIG) Comments Components Source norethindro ne 0.35 mg tablet 2023-11 00:00: 00 Yes [id number] 1{tbl} Take 1 tablet by mouth in the morning. [facility] vitamin w/FA tablet 07-05 00:00: 00 Yes [id number] 102 1{tbl} Take 1 tablet by mouth in the morning. [facility] witch Bowen (TUCKS) 50 % topical pad 07-04 13:34: 34 Yes Topical, PRN, Starting on Mon07/04/24 at 0834, Until Discontinu ed, Routine, Pain (scale 1-3), Pain (scale 4-6), Pain (scale 7-10) [facility] HYDROcodone -acetaminop hen (NORCO 5) tablet 1 tablet 07-04 04:57: 40 Yes 1{tbl} 1 tablet, Oral, Q6HPRN, Starting on Mon07/03/24 at 2357, Until Discontinu ed, Routine, Pain (scale 7-10) [facility] acetaminoph en (TYLENOL) tablet 650 mg 07-04 04:57: 40 Yes 650mg 650 mg, Oral, Q6HPRN, Starting on Mon07/03/24 at 2357, Until Discontinu ed, Routine, Pain (scale 1-3) [facility] diphenhydrA MINE (BENADRYL) tablet 25 mg 07-04 04:57: 40 Yes 25mg [facility] ondansetron (ZOFRAN (PF)) injection 4 mg 07-04 04:57: 40 Yes 4mg [facility] simethicone (GAS RELIEF (SIMETHICON E)) chewable tablet 160 mg 07-04 04:57: 40 Yes 160mg [facility] docusate (COLACE) capsule 200 mg 07-04 04:57: 40 Yes 200mg [facility] magnesium hydroxide (MILK OF MAGNESIA) 400 mg/5 mL suspension 30 mL 07-04 04:57: 40 Yes 30mL [facility] benzocaine- menthol (DERMOPLAST ) 20-0.5 % topical spray 07-04 04:57: 39 Yes Topical, PRN, Starting on Mon07/03/24 at 2357, Until Discontinu ed, Routine, [facility]ineum discomfort [facility] pivacaine 2 mcg/mL-0.1 % (PF) in NS 200 mL epidural infusion RTU 07-04 01:48: 00 07-04 11:19 :28 No Intra-op [facility] FENTanyl (PF) (SUBLIMAZE) injection 100 mcg 07-04 00:25: 59 07-04 05:03 :17 No 100ug 100 mcg, Slow IV Push, Q1HPRN, Starting on Mon07/03/24 at 1925, Until Bekah 07/04/24 at 0003, Routine, Pain (scale 7-10) [facility] oxytocin (PITOCIN) 30 units in NS 500 mL IV infusion 07-04 00:25: 59 07-04 05:03 :17 No 2mU/min at 2-40 mL/hr, IV Infusion, TITRATE, Starting on Mon07/03/24 at 1925, Until Bekah 07/04/24 at 0003, Routine [facility] D5W-LR IV infusion 1,000 mL 07-04 00:25: 59 07-04 05:03 :17 No 1000mL at 1-125 mL/hr, IV Infusion, TITRATE, Starting on Mon07/03/24 at 1925, Until Bekah 07/04/24 at 0003, Routine [facility] vit no.124/iron /folic ( VITAMIN ORAL) 04-29 09:10: 46 04-29 00:00 :00 No Take by mouth. [facility] vitamin w/FA tablet 04-29 00:00: 00 07-05 00:00 :00 No 1{tbl} Take 1 tablet by mouth in the morning. [facility] vit no.124/iron /folic ( VITAMIN ORAL) 04-03 15:55: 20 Yes Take by mouth. [facility] vit no.124/iron /folic ( VITAMIN ORAL) 01-09 11:06: 21 Yes Take by mouth. [facility] Immunizations Ordered Immunization Name Filled Immunization Name Date Status Comments Source TDAP 2024-05-01 00:00:[address] [facility] TDAP 2024-05-01 00:00:[address] [facility] TDAP Unknown Completed [facility] TDAP Unknown Completed [facility] TDAP Unknown Completed [facility] TDAP Unknown Completed [facility] TDAP Unknown Com[facility] TDAP Unknown Com[facility] TDAP Unknown Completed [facility] TDAP Unknown Completed [facility] TDAP Unknown Completed [facility] TDAP Unknown Completed [facility] Vital Signs Vital Name Observation Time Observation Value Comments S ource Systolic blood pressure 2024-08-13 20:45:00 110 mm[Hg] [facility] Diastolic blood pressure 2024-08-13 20:45:00 69 mm[Hg] [facility] Heart rate 2024-08-13 20:45:00 75 /min [facility] Body temperature 2024-08-13 20:45:[address] [facility] Respiratory rate 2024-08-13 20:45:00 18 /min [facility] Body height 2024-08-13 20:45:[address] [facility] Body weight 2024-08-13 20:45:[address] [facility] BMI 2024-08-13 20:45:00 37.57 kg/m2 [facility] Systolic blood pressure 2024-07-05 14:45:00 111 mm[Hg] [facility] Diastolic blood pressure 2024-07-05 14:45:00 67 mm[Hg] [facility] Heart rate 2024-07-05 14:45:00 90 /min [facility] Body temperature 2024-07-05 14:45:[address] [facility] Respiratory rate 2024-07-05 14:45:00 16 /min [facility] Oxygen saturation in Arterial blood by Pulse oximetry 2024-07-05 14:45:00 98 /min [facility] Body weight 2024-07-04 00:00:[address] [facility] BMI 2024-07-04 00:00:00 40.17 kg/m2 [facility] Body height 2024-07-03 23:49:[address] [facility] Systolic blood pressure 2024-07-02 20:40:00 111 mm[Hg] [facility] Diastolic blood pressure 2024-07-02 20:40:00 76 mm[Hg] [facility] Heart rate 2024-07-02 20:40:00 90 /min [facility] Body temperature 2024-07-02 20:40:[address] [facility] Respiratory rate 2024-07-02 20:40:00 18 /min [facility] Body height 2024-07-02 20:40:[address] [facility] Body weight 2024-07-02 20:40:[address] [facility] BMI 2024-07-02 20:40:00 41.91 kg/m2 [facility] Systolic blood pressure 2024-06-25 21:31:00 115 mm[Hg] [facility] Diastolic blood pressure 2024-06-25 21:31:00 85 mm[Hg] [facility] Heart rate 2024-06-25 21:31:00 108 /min [facility] Respiratory rate 2024-06-25 21:31:00 17 /min [facility] Body height 2024-06-25 21:31:[address] [facility] Body weight 2024-06-25 21:31:[address] [facility] BMI 2024-06-25 21:31:00 41.81 kg/m2 [facility] Systolic blood pressure 2024-06-18 13:31:00 126 mm[Hg] [facility] Diastolic blood pressure 2024-06-18 13:31:00 85 mm[Hg] [facility] Heart rate 2024-06-18 13:31:00 103 /min [facility] Body temperature 2024-06-18 13:31:[address] [facility] Respiratory rate 2024-06-18 13:31:00 18 /min [facility] Body height 2024-06-18 13:31:[address] [facility] Body weight 2024-06-18 13:31:[address] [facility] BMI 2024-06-18 13:31:00 39.99 kg/m2 [facility] Systolic blood pressure 2024-06-04 16:01:00 113 mm[Hg] [facility] Diastolic blood pressure 2024-06-04 16:01:00 78 mm[Hg] [facility] Heart rate 2024-06-04 16:01:00 104 /min [facility] Body temperature 2024-06-04 16:01:[address] [facility] Body weight 2024-06-04 16:01:[address] [facility] BMI 2024-06-04 16:01:00 39.96 kg/m2 [facility] Systolic blood pressure 2024-05-21 14:01:00 117 mm[Hg] [facility] Diastolic blood pressure 2024-05-21 14:01:00 80 mm[Hg] [facility] Heart rate 2024-05-21 14:01:00 112 /min [facility] Body temperature 2024-05-21 14:01:[address] [facility] Respiratory rate 2024-05-21 14:01:00 16 /min [facility] Body height 2024-05-21 14:01:00 162.6 cm [facility] Body weight 2024-05-21 14:01:[address] [facility] BMI 2024-05-21 14:01:00 39.20 kg/m2 [facility] Oxygen saturation in Arterial blood by Pulse oximetry 2024-05-21 14:01:00 99 /min [facility] Systolic blood pressure 2024-05-01 14:09:00 116 mm[Hg] [facility] Diastolic blood pressure 2024-05-01 14:09:00 81 mm[Hg] [facility] Heart rate 2024-05-01 14:09:00 97 /min [facility] Respiratory rate 2024-05-01 14:09:00 15 /min [facility] Body height 2024-05-01 14:09:[address] [facility] Body weight 2024-05-01 14:09:[address] [facility] BMI 2024-05-01 14:09:00 39.87 kg/m2 [facility] Systolic blood pressure 2024-04-03 21:02:00 112 mm[Hg] [facility] Diastolic blood pressure 2024-04-03 21:02:00 77 mm[Hg] [facility] Heart rate 2024-04-03 21:02:00 94 /min [facility] Respiratory rate 2024-04-03 21:02:00 18 /min [facility] Body height 2024-04-03 21:02:00 160 cm [facility] Body weight 2024-04-03 21:02:[address] [facility] BMI 2024-04-03 21:02:00 39.68 kg/m2 [facility] Systolic blood pressure 2024-03-06 16:12:00 117 mm[Hg] [facility] Diastolic blood pressure 2024-03-06 16:12:00 83 mm[Hg] [facility] Heart rate 2024-03-06 16:12:00 94 /min [facility] Body temperature 2024-03-06 16:12:[address] [facility] Respiratory rate 2024-03-06 16:12:00 16 /min [facility] Body height 2024-03-06 16:12:00 160 cm [facility] Body weight 2024-03-06 16:12:[address] [facility] BMI 2024-03-06 16:12:00 39.33 kg/m2 [facility] Systolic blood pressure 2024-02-07 15:57:00 106 mm[Hg] [facility] Diastolic blood pressure 2024-02-07 15:57:00 66 mm[Hg] [facility] Heart rate 2024-02-07 15:57:00 94 /min [facility] Body temperature 2024-02-07 15:57:[address] [facility] Respiratory rate 2024-02-07 15:57:00 16 /min [facility] Body height 2024-02-07 15:57:00 160 cm [facility] Body weight 2024-02-07 15:57:00 98.431 kg [facility] BMI 2024-02-07 15:57:00 38.44 kg/m2 [facility] Body weight 2024-01-10 17:05:[address] [facility] BMI 2024-01-10 17:05:00 37.45 kg/m2 [facility] Systolic blood pressure 2024-01-10 17:05:00 93 mm[Hg] [facility] Diastolic blood pressure 2024-01-10 17:05:00 68 mm[Hg] [facility] Heart rate 2024-01-10 17:05:00 93 /min [facility] Body temperature 2024-01-10 17:05:[address] [facility] Respiratory rate 2024-01-10 17:05:00 16 /min [facility] Body height 2024-01-10 17:05:[address] [facility] Systolic blood pressure 2023-12-13 20:40:00 96 mm[Hg] [facility] Diastolic blood pressure 2023-12-13 20:40:00 66 mm[Hg] [facility] Heart rate 2023-12-13 20:40:00 87 /min [facility] Body temperature 2023-12-13 20:40:[address] [facility] Respiratory rate 2023-12-13 20:40:00 16 /min [facility] Body height 2023-12-13 20:40:[address] [facility] Body weight 2023-12-13 20:40:[address] [facility] BMI 2023-12-13 20:40:00 37.41 kg/m2 [facility] Oxygen saturation in Arterial blood by Pulse oximetry 2023-12-13 20:40:00 97 /min [facility] Procedures Procedure Date / Time Performed Performing Clinician Source POCT TEST 2024-08-13 00:00:00 Adum, Jocelyn Hernadez [facility] CBC WITH DIFF 2024-07-04 09:12:00 Adum, Jocelyn Maria [facility] CENTRAL NEURAXIAL BLOCK 2024-07-04 02:45:[address] [facility] CBC WITH DIFF 2024-07-04 00:47:00 Adum, [facility] HEPATITIS B SURFACE ANTIGEN 2024-07-04 00:47:00 Adum, Jocelyn Hernadez [facility] HB ABO GROUPING 2024-07-04 00:47:00 [facility]um[facility] ONLY - RPR 2024-07-04 00:47:00 Adum, Jocelyn Hernadez [facility] HIV 1/2 AG-AB WITH REFLEX 2024-07-04 00:47:00 Adum, Jocelyn Satya [facility] POCT URINALYSIS W/O SPECIFIC GRAVITY 2024-07-02 00:00:00 Adum, Jocelyn Satya [facility] POCT URINALYSIS W/O SPECIFIC GRAVITY 2024-06-25 00:00:00 Adum, Jocelyn Satya [facility] DSU PRE-OP 2024-06-18 18:01:05 Doctor Kristen igned, [place] [facility] >14 WEEKS US LIMITED 2024-06-18 14:31:28 Adum, Jocelyn Satya [facility] POCT URINALYSIS W/O SPECIFIC GRAVITY 2024-06-18 00:00:00 Adum, Jocelyn Satya [facility] POCT URINALYSIS W/O SPECIFIC GRAVITY 2024-06-04 00:00:[address] [facility] POCT URINALYSIS W/O SPECIFIC GRAVITY 2024-05-21 00:00:00 Adum, Jocelyn Satya [facility] TDAP VACCINE, >11 YRS, IM 2024-05-01 14:19:11 Adum, Jocelyn Satya [facility] POCT URINALYSIS W/O SPECIFIC GRAVITY 2024-05-01 00:00:00 Adum, Jocelyn Satya [facility] SECOND AND THIRD TRIMESTER ULTRASOUND 2024-04-08 18:29:00 Adum, Jocelyn Satya [facility] POCT URINALYSIS W/O SPECIFIC GRAVITY 2024-04-03 00:00:00 Adum, Jocelyn Satay [facility] SECOND AND THIRD TRIMESTER ULTRASOUND 2024-03-08 15:08:25 Adum, Jocelyn Satya [facility] POCT URINALYSIS W/O SPECIFIC GRAVITY 2024-03-06 00:00:00 Adum, Jocelyn Satya [facility] SCANNED LAB RESULTS 2024-02-15 16:00:35 Doctor Julia ruelas, [place] [facility] POCT URINALYSIS W/O SPECIFIC GRAVITY 2024-02-07 00:00:00 Adum, Jocelyn Hernadez [facility] SCANNED LAB RESULTS 2024-01-10 06:01:00 Doctor U nassigned, [place] [facility] POCT URINALYSIS W/O SPECIFIC GRAVITY 2024-01-10 00:00:[address] [facility] US OB TRANSVAGINAL 2023-12-13 21:35:[address] [facility] ASSIGNMENT OF BENEFITS 2023-12-13 20:14:13 Docto r Unassigned, [place] [facility] POCT TEST 2023-12-13 00:00:[address] [facility] POCT URINALYSIS W/O SPECIFIC GRAVITY 2023-12-13 00:00:[address] [facility] Encounters Start Date/Time End Date/Time Encounter Type Admission Type Attending [facility] Care Facility Care Department Encounter ID Source 2024-07-02 16:37:02 Outpatient P JOCELYN YEBOAH VIVIAN [facility] [id number] [facility] 2024-06-18 00:00:00 2024-12-21 07:07:45 Orders Only Doctor Unassigned, [place] Doctor Unassigned, [place] [facility]) [id number] 350.1.13.10 4.2.7.2.686 [id number] [facility] 2024-02-15 00:00:00 2024-12-21 02:23:37 Orders Only Doctor Unassigned, [place] Doctor Unassigned, [place] [facility] ([facility]) [id number] 350.1.13.10 4.2.7.2.686 [id number] [facility] 2024-07-24 00:00:00 2024-08-24 18:21:35 Patient Secure Msg Jocelyn Yeboah [facility] [id number] 350.1.13.10 4.2.7.2.686 [id number] [facility] 2024-08-13 16:00:00 2024-08-13 16:17:33 Outpatient R ADUM, JOCELYN ADUM, JOCELYN [facility] [id number] [facility] 2024-08-13 16:00:00 2024-08-13 16:17:33 Routine Visit Jocelyn Yeboah [facility] [id number] 350.1.13.10 4.2.7.2.686 [id number] [facility] 2024-06-27 00:00:00 2024-08-03 18:28:28 Patient Secure Msg Jocelyn Yeboah [facility] [id number] 350.1.13.10 4.2.7.2.686 [id number] [facility] 2024-07-03 18:50:00 2024-07-05 12:25:00 Inpatient X ADDESHAUN, JOCELYN VELAZQUEZ [facility] [id number] [facility] 2024-07-03 18:50:00 2024-07-05 12:25:00 Hospital Encounter Jocelyn Yeboah [facility] [id number] 350.1.13.10 4.2.7.2.686 [id number] [facility] 2024-07-03 00:00:00 2024-07-04 07:48:22 Patient Secure Msg Jocelyn Yeboah [facility] [id number] 350.1.13.10 4.2.7.2.686 [id number] [facility] 2024-07-03 20:40:00 2024-07-04 01:19:00 Anesthesia Event Sergey Rivers [facility] [id number] 350.1.13.10 4.2.7.2.686 [id number] [facility] 2024-07-02 15:30:00 2024-07-02 16:13:51 Outpatient R ADUMJOCELYN VIVIAN [facility] [id number] [facility] 2024-07-02 15:30:00 2024-07-02 16:13:51 Routine Visit AdJocelyn garibay [facility] 1.2.840.114 350.1.13.10 4.2.7.2.686 [id number] [facility] 2024-06-25 16:15:00 2024-06-25 16:52:19 Outpatient R ADUM, JOCELYN VELAZQUEZ [facility] [id number] [facility] 2024-06-25 16:15:00 2024-06-25 16:52:19 Routine Visit AdumJocelyn [facility] 1.2.840.114 350.1.13.10 4.2.7.2.686 [id number] 134 [id number] [facility] 2024-06-18 13:00:00 2024-06-18 13:00:00 Outpatient R ADUMJOCELYN VIVIAN [facility] [id number] [facility] 2024-06-18 09:30:00 2024-06-18 09:45:00 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, Adc Lab AdJocelyn garibay L 2, Adc Lab [facility] 1.2.840.114 350.1.13.10 4.2.7.2.686 [id number] [facility] 2024-06-18 08:45:00 2024-06-18 09:27:16 Outpatient R ADUMJOCELYN VIVIAN [facility] [id number] [facility] 2024-06-18 08:45:00 2024-06-18 09:27:16 Routine Visit AdumJocelyn [facility] 1.2.840.114 350.1.13.10 4.2.7.2.686 [id number] 134 [id number] [facility] 2024-06-04 11:00:00 2024-06-04 11:10:29 Outpatient R DORYS LEMON [facility] [id number] [facility] 2024-06-04 11:00:00 2024-06-04 11:10:29 [facility] 1.2.840.114 350.1.13.10 4.2.7.2.686 [id number] 134 [id number] [facility] 2024-04-26 00:00:00 2024-06-01 18:25:49 Patient Secure Msg Doctor Unassigned, Ellijay [facility] 1.2.840.114 350.1.13.10 4.2.7.2.686 [id number] [facility] 2024-05-21 08:45:00 2024-05-21 09:26:16 Outpatient R ADUMJOCELYN [facility] [id number] [facility] 2024-05-21 08:45:00 2024-05-21 09:26:16 Routine Visit Joc[facility] 1.2.840.114 350.1.13.10 4.2.7.2.686 [id number] [facility] 2024-05-15 10:00:00 2024-05-15 10:00:00 Outpatient R ADUMJOCELYN [facility] [id number] [facility] 2024-05-01 09:15:00 2024-05-01 09:29:18 Outpatient R ADUMJOCELYN [facility] [id number] [facility] 2024-05-01 09:15:00 2024-05-01 09:29:18 Routine Visit Jocelyn Yeboah [facility] 1.2.840.114 350.1.13.10 4.2.7.2.686 [id number] [facility] 2024-04-25 00:00:00 2024-04-29 09:13:16 Patient Secure Jocelyn Reza [facility] 1.2.840.114 350.1.13.10 4.2.7.2.686 [id number] [facility] 2024-04-08 13:00:00 2024-04-08 13:30:28 Outpatient TRACY AHN [facility] [id number] [facility] 2024-04-08 13:00:00 2024-04-08 13:30:28 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, [facility] Tracy Quinones [facility] [place] [facility] 1.2840.114 350.1.13.10 4.2.7.2.686 [id number] [facility] 2024-04-08 09:45:00 2024-04-08 10:00:00 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 Lab, Edvin Quinones [facility] 1.840.114 350.1.13.10 4.2.7.2.686 [id number] [facility] 2024-04-08 08:00:00 2024-04-08 08:30:12 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 [place] [facility] 1.2840.114 350.1.13.10 4.2.7.2.686 [id number] [facility] 2024-04-03 16:00:00 2024-04-03 16:18:28 Outpatient R COLIN [facility] [id number] [facility] 2024-04-03 16:00:00 2024-04-03 16:18:28 Routine Visit Addeshaun Jocelyn Hernadez [facility] 1.0.114 350.1.13.10 4.2.7.2.686 [id number] [facility] 2024-04-03 11:00:00 2024-04-03 11:00:00 Outpatient R COLIN JOCELYN [facility] [id number] [facility] 2024-03-08 08:45:00 2024-03-08 09:53:25 Outpatient P AMY ESTEVEZ AMY [facility] [id number] [facility] 2024-03-08 08:45:00 2024-03-08 09:53:25 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, [facility] Amy Estevez [facility] [place] [facility] 1.0.114 350.1.13.10 4.2.7.2.686 [id number] [facility] 2024-03-08 00:00:00 2024-03-08 00:00:00 Case Management Addeshaun Jocelyn [facility] 1.2.114 350.1.13.10 4.2.7.2.686 [id number] 134 [id number] [facility] 2024-03-06 11:15:00 2024-03-06 11:22:58 Outpatient R ADUM [facility] [id number] [facility] 2024-03-06 11:15:00 2024-03-06 11:22:58 Routine Visit Addeshaun Jocelyn [facility] 1.2.114 350.1.13.10 4.2.7.2.686 [id number] [facility] 2024-02-07 12:15:00 2024-02-07 12:30:00 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 Lab, Ang - Db Adum, [facility] 1.2.840.114 350.1.13.10 4.2.7.2.686 [id number] [facility] 2024-02-07 12:15:00 2024-02-07 12:15:00 Outpatient R ADUM, [facility] [id number] [facility] 2024-02-07 11:00:00 2024-02-07 11:28:41 Routine Visit Adum, [facility] 1.2.840.114 350.1.13.10 4.2.7.2.686 [id number] [facility] 2024-01-19 00:00:00 2024-01-19 00:00:00 Telephone Adum, [facility] 1.2.840.114 350.1.13.10 4.2.7.2.686 [id number] [facility] 2024-01-18 00:00:00 2024-01-18 00:00:00 Telephone Adum, [facility] 1.2.840.114 350.1.13.10 4.2.7.2.686 [id number] [facility] 2024-01-10 12:00:00 2024-01-10 12:00:00 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 Lab, Ang - Db Adum, [facility] 1.2.840.114 350.1.13.10 4.2.7.2.686 [id number] [facility] 2024-01-10 11:00:00 2024-01-10 11:36:53 Outpatient R ADUM, [facility] [id number] [facility] 2024-01-10 11:00:00 2024-01-10 11:36:53 Routine Visit Ad, [facility] 1.2.840.114 350.1.13.10 4.2.7.2.686 [id number] [facility] 2024-01-10 00:00:00 2024-01-10 00:00:00 Orders Only Doctor Unassigned, Ellijay [facility] 1.2.840.114 350.1.13.10 4.2.7.2.686 [id number] [facility] 2024-01-03 08:00:00 2024-01-03 08:00:52 Outpatient R ADDESHAUN, [facility] [id number] [facility] 2024-01-03 08:00:00 2024-01-03 08:00:52 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 Lab, Edvin - Wesley Addeshaun, [facility] 1.840.114 350.1.13.10 4.2.7.2.686 [id number] [facility] 2024-01-03 00:00:00 2024-01-03 00:00:00 Patient Secure Msg Doctor Unassigned, Ellijay [facility] 1.2840.114 350.1.13.10 4.2.7.2.686 [id number] [facility] 2023-12-13 14:30:00 2023-12-13 15:32:46 Outpatient R ADDESHAUN, [facility] [id number] [facility] 2023-12-13 14:30:00 2023-12-13 15:32:46 Initial Visit Indra, [facility] 1.2840.114 350.1.13.10 4.2.7.2.686 [id number] [facility] 2023-12-13 00:00:00 2023-12-13 00:00:00 Orders Only Doctor Unassigned, Ellijay [facility] 1.2.840.114 350.1.13.10 4.2.7.2.686 [id number] [facility] 2023-12-12 14:30:00 2023-12-12 14:30:00 Outpatient Boo GALDAMEZDESHAUN JOCELYN [facility] [id number] [facility] Results Test Description Test Time Test Comments Results Result Co mments Source [facility] with Tdtjgqvfjvxv5504-83-08 09:53:34* Test Item Value Reference Range Interpretation [...] 32.7 g/dL 31.6-35.1 RDW-SD (test code = 49707-7) 43.1 fL 39.0-49.9 RDW-CV (test code = 788-0) 14.2 % 12.0-15.5 PLT (test code = 777-3) 391 166-358 H MPV (test code = 95760-5) 9.4 fL 9.5-12.9 L NRBC/100 WBC (test code = 2260169665) 0.0 0.0-10.0 NRBC x10^3 (test code = 3113826149) See_Comment [Automated message] The system which generated this result transmitted reference range: 10*3/?L. The reference range was not used to interpret this result as normal/abnormal. GRAN MAT (NEUT) % (test code = 770-8) 81.2 % IMM GRAN % (test code = 8104280147) 0.70 % LYMPH % (test code = 736-9) 11.7 % MONO % (test code = 5905-5) 6.2 % EOS % (test code = 713-8) 0.0 % BASO % (test code = 706-2) 0.2 % GRAN MAT x10^3(ANC) (test code = 5325831685) 14.52 10*3/uL 1.88-7.09 H IMM GRAN x10^3 (test code = 1294022695) 0.12 10*3/uL 0.00-0.06 H LYMPH x10^3 (test code = 731-0) 2.10 10*3/uL 1.32-3.29 MONO x10^3 (test code = 742-7) 1.11 10*3/uL 0.33-0.92 H EOS x10^3 (test code = 711-2) 0.03-0.39 L BASO x10^3 (test code = 704-7) 0.04 10*3/uL 0.01-0.07 Lab Interpretation (test code = 69862-9) Abnormal [facility] B Surface Canphcm4724-34-10 08:28:04 * Test Item Value Reference Range Interpretation Comme nts HBsAg Semi-Quantitative (matilda t code = 5195-3) 0.07 Negative [facility] OR FILI ONLY - [id number] 07:36:52* Test Item Value Reference Range Interpretation Comme nts RPR (Qualitative) (test code = 83518-8) Nonreactive Nonreactive Lab Interpretation (test cod e = 48224-9) Normal [facility]2 Ag-Ab with Cxwipu3997-00-11 02:45:33* Test Item Value Reference Range Interpretation Comme nts HIV Semi-quantitative (test code = 29269-8) 0.15 Negative MEAGAN (test code = MEAGAN) Non-reactive for HIV-1 antigen and HIV-1/HIV-2 antibodies. ?No laboratory evidence of HIV infection. ?Repeat in 2-4 weeks if acute HIV infection is suspected. [facility] [id number] 02:45:00 Sergey Rivers MD ? ? 07/03/2024 ?9:19 PM Central Neuraxial Block Date/Time: 07/03/2024 9:45 PM Performed by: Sergey Rivers MDAuthorized by: Sergey Rivers MD ?Patient Location: OBReason for Block: OB request, Patient request, Labor analgesia, Surgical anesthesia and Post-op pain managementStaff: ?Anesthesiologist: Sergey Rivers MD ?Performed by: anesthesiologistPreanesthetic Checklist: patient identified, IV checked, risks and benefits explained, monitors and equipment checked,timeout performed, pre-op evaluation, site marked, anesthesia consent and ob/surgical consent verifi edProcedure: ?Type of Neuraxial: Epidural and Continuous ? Sterility Prep cap, drape, gloves, hand hygiene and mask ? ?Sedation Level no sedation ?Patient Position: sitting ?Prep: Betadine and patient draped ? ?Monitoring: heart rate, continuous pulse ox, heart rate / toco and NIBP ?Location:lumbar (1-5) ?Lumbar: L2-L3 ?Approach: midline ? ?Technique: FAINA air and catheter ?Guidance with: landmark technique}Epidural/Spinal Grandfalls and/or Catheter: ?Epidural/Spinal Kit: [email or web address] (BD) ?Needle Type: Tuohy ?Needle Gauge: 17 G ?Needle Length: 3.5 in (8.89 cm) ?Needle Insertion Depth:7 ?Catheter Type: multiport ? ?Catheter Size: 18 G ? ?Catheter at Skin Depth: 12 ?Number of Attempts: 1 ?Test Dose: lidocaine 1.5% with epinephrine 1-to-200,000 and negative ? ?Dose: 3 cc ? ?CatheterSecurement Method: surgical tape and TegadermAssessment: ?Sensory Level: below T10 ?Lumbar: T12 ?Block Outcome: positive pain relief and successful block ? ?Procedure Assessment: patient tolerated procedure well with no complicationsNotes: ? Smooth and atraumatic, (+) Local, (+) [facility] Differential 2024-07-04 01:10:18* Test Item [...] 33.5 g/dL 31.6-35.1 RDW-SD (test code = 66107-5) 43.6 fL 39.0-49.9 RDW-CV (test code = 788-0) 14.2 % 12.0-15.5 PLT (test code = 777-3) 412 166-358 H MPV (test code = 08386-7) 9.6 fL 9.5-12.9 NRBC/100 WBC (test code = 0335966828) 0.0 0.0-10.0 NRBC x10^3 (test code = 6800367743) See_Comment [Automated message] The system which generated this result transmitted reference range: 10*3/?L. The reference range was not used to interpret this result as normal/abnormal. GRAN MAT (NEUT) % (test code = 770-8) 76.6 % IMM GRAN % (test code = 3707527756) 0.50 % LYMPH % (test code = 736-9) 16.0 % MONO % (test code = 5905-5) 6.5 % EOS % (test code = 713-8) 0.2 % BASO % (test code = 706-2) 0.2 % GRAN MAT x10^3(ANC) (test code = 2150410936) 10.29 10*3/uL 1.88-7.09 H IMM GRAN x10^3 (test code = 7724140029) 0.07 10*3/uL 0.00-0.06 H LYMPH x10^3 (test code = 731-0) 2.15 10*3/uL 1.32-3.29 MONO x10^3 (test code = 742-7) 0.87 10*3/uL 0.33-0.92 EOS x10^3 (test code = 711-2) 0.03 10*3/uL 0.03-0.39 BASO x10^3 (test code = 704-7) 0.03 10*3/uL 0.01-0.07 Lab Interpretation (test code = 07303-5) Abnormal [facility] HospitalType and Screen - ONCE [id number] 01:02:00 * Test Item Value Reference Range Interpretation Comme nts ABO & RH (test code = 20) O POSITIVE IAT (test code = 1185) [facility] Hlayjkh8843-48-20 20:38:00* Test Item Value Reference Range Interpretation [...] = 3257) n/a Negative - Negati ve [facility]PO[facility] Urinalysis w/o Specific Mdexrgt8264-34-41 21:29:00* Test Item Value Reference Range Interpretation [...] = 3257) n/a Negative - Negati ve [facility] HospitalDSU [id number]-[id number] 18:01:05Ordered by an unspecified provider.[facility] Urinalysis w/o Specific Efvmudz1169-97-78 15:38:00* Test Item Value Reference Range Interpretation [...] = 3257) n/a Negative - Negati ve [facility] Urinalysis w/o Specific Wrmvjxx5351-41-08 16:00:00* Test Item Value Reference Range Interpretation [...] = 3257) n.a Negative - Negati ve [facility] Urinalysis w/o Specific Xwahsha0494-82-10 13:59:00* Test Item Value Reference Range Interpretation [...] = 3257) n/a Negative - Negati ve [facility] Urinalysis w/o Specific Nibumdv0435-01-80 14:07:00* Test Item Value Reference Range Interpretation [...] = 3257) n/a Negative - Negati ve [facility] Urinalysis w/o Specific Yptliwy4043-57-41 21:24:00* Test Item Value Reference Range Interpretation [...] = 3257) N/A Negative - Negati ve [facility] Urinalysis w/o Specific Afsudih3913-47-41 16:10:00* Test Item Value Reference Range Interpretation [...] = 3257) n/a Negative - Negati ve [facility] HospitalSCANN[facility] LAB [id number] 16:00:35Ordered by an unspecified provider.[facility] Urinalysis w/o Specific Bepejia0603-65-19 15:55:00* Test Item Value Reference Range Interpretation [...] = 3257) n/a Negative - Negati ve [facility] Urinalysis w/o Specific Cccjylw4910-19-27 17:06:00* Test Item Value Reference Range Interpretation [...] = 3257) n/a Negative - Negati ve [facility] Djsr7192-32-92 22:32:00* Test Item Value Reference Range Interpretation Comme nts POCT PREG (test code = 1605) Positive On board controls acceptable with C Line (test code = 3574) Yes POCT PREG LOT # (test code = 3575) POCT PREG TEST DATE ( test code = 3576) [facility] Urinalysis w/o Specific Npvudhz4825-53-34 22:32:00* Test Item Value Reference Range Interpretation [...] = 3257) n/a Negative - Negati ve [facility] History and Physical Notes Date/Time Note Provider Source 2024-07-03 22:46:27 TRIAGE HISTORY & PHYSICAL IDENTIFYING DATA Latisha Kumar is 19 year old, /White, 38w3d, female with LESLIE 07/14/2024, by Ultrasound. : 2005 Primary Care Physician: PATIENT DOES NOT HAVE A PCP CHIEF COMPLAINT Contractions HISTORY OF PRESENT ILLNESS Latisha Kumar is a 19 year old female at [...] 2-4 min - SVE: /0 - Mode: Hercules: REVIEW OF LABORATORY, PATHOLOGY, AND RADIOLOGY DATA [...] weeks gestation of ASSESSMENT AND PLAN Latisha Kumar is a 19 year old at 38w3d who presents in labor. CAT 1. GBS negative Labor AROM- clear Fetus CAT 1 Cephalic risk low Anticipate vaginal delivery Jocelyn Yeboah MD T [facility] Procedure Notes Date/Time Note Provider Source 2024-07-03 [...] and catheter Guidance with: landmark technique} Epidural/Spinal Grandfalls and/or Catheter: Epidural/Spinal Kit: [email or web address] (Hookit) Needle Type: Tuohy Needle Gauge: 17 G [...] Smooth and atraumatic, (+) Local, (+) STF T [facility] Notes Date/Time Note Provider Source 2024-07-05 11:42:15 [...] Heather White RN Outcome: Progressing as expected [facility] 2024-07-05 07:40:37 Problem: Bleeding, Risk of Goal: [...] in pain sensation Outcome: Progressing as expected [facility] 2024-07-04 20:40:15 Problem: Bleeding, Risk of Goal: [...] Outcome: Progressing as expected Delores Hendrix RN [facility] 2024-07-04 08:35:28 Problem: Bleeding, Risk of Goal: [...] Outcome: Progressing as expected Sue Gallo RN [facility] 2024-07-04 07:47:33 Patient had delivery 07.03.2024 Tomeka Taylor MA [facility] 2024-07-04 06:19:48 Patient: Latisha Kumar Procedure Summary Date: 07/03/24 Room / Location: [...] status: acceptable Hydration status: acceptable AN-ANESTHESIOLOGY ANESTHESIOLOGIST [facility] 2024-07-04 00:22:10 Problem: Bleeding, Risk of Goal: [...] in pain sensation Outcome: Progressing as expected Levi Vora RN [facility] 2024-07-04 00:03:28 DELIVERY BY SPONTANEOUS VAGINAL DELIVERY Delivery Date: 07/03/2024 Delivery Time: 11:38 PM Delivery Summary The patient was admitted to the Labor & Delivery unit in [facility] at 38w3d Delivery Physician: Jocelyn Yeboah MD [...] shoulder and body. After the delivery of infant, bulb suction was performed from ororpharynx and [...] Minute Totals: 8 9 Jocelyn Yeboah MD [facility] 2024-07-03 21:19:39 Name/ MRN / Age / Gender: Latisha Kumar, [id number] 19 year old female BMI: Estimated body [...] Anesthesia Preop Eval (physical exam) Anesthesia Preop: Dpzz-li-Gaga NPO Status Verified Solid Food/Non-Clear Liquids: > 8 Hours PONV Risk Factors: female Anesthesia History Anesthesia History Negative Previous Anesthetics/Airways Cardiovascular Negative Cardiac ROS Pulmonary Negative Pulmonary ROS Neuro/Musculoskeletal (+) Obesity and morbid obesity GI/Hepatic Negative GI/Hepatic ROS Hematology Renal Negative Renal ROS Skin Negative Skin ROS (+) Current IV access and 18g Endo/Other Negative Endo/Other ROS Other [place] [facility] P: 0 Pediatric Negative Pediatric ROS Negative ROS Preoperative Medication Instructions Continue taking all prescribed medications except: MONET inhibitors, ARBs, diuretics, all oral diabetes medications Anticoagulant Therapy: Defer to surgeons Insulin: Take 1/2 dose the night prior to surgery. Hold on DOS. Phentermine: Alert [facility] anesthesiologist SGLT2 Inhibitors: "gliflozins" to be held [...] Epidural Anesthesia plan discussed with: patient or advertising sales representative Post-Operative Analgesia: routine analgesia & antiemetics Recovery Plan: PACU Additional comments: [facility] 2024-07-03 19:59:36 Problem: Intrapartum process (including labor [...] Goal: Effective breast-feeding Outcome: Progressing as expected [facility] 2024-07-03 18:47:59 Pt to ED CO intermittent contractions since last night. Induction scheduled with Dr. Yeboah for 07/10/24. . Denies any fluid loss/vaginal bleeding. Report to Janie MOLINA. Latha Casillas RN [facility] 2024-07-02 15:30:00 Age: [age] year old GA: [...] 1 minute. - POCT Urinalysis w/o Specific [place] 3. Other obesity affecting in third trimester - stable weight RTC 4-6 wks post delivery Future Appointments In 1 week ADC INDUCTION [facility] L&D Scheduled Appointments, [facility] [place] [facility] 2024-06-25 16:15:00 Age: [age] year old GA: [...] 1 minute. - POCT Urinalysis w/o Specific [place] 3. Other obesity affecting in third trimester Weight gain stable VLADIMIR in 1 week or PRN Future Appointments In 1 week Jocelyn Yeboah MD [facility] Jocelyn Yeboah MD [facility] 2024-06-18 09:30:00 Images from the original note were not included. Venipuncture collection performed by clean technique on the left anticubitus. Total of 1 attempts were made. Slight pressure and a bandage/dressing were applied to the site(s). The patient experienced no complications. The following specimens were processed according to instructions and sent to [facility] laboratories per lab order on 06/18/2024 : LT BLUE SST RED LAV 1 PPT DK GREEN (LiHep) DK GREEN (SodH) MURILLO DK BLUE (K2) DK BLUE (S) ACD Blood Culture NIPT/NTD T [facility] 2024-06-18 08:45:00 Age: [age] year old GA: 36w2d 1. High-risk in third trimester - POCT Urinalysis w/o Specific [place] 2. 36 weeks gestation of - Discussed [...] Appointments In 1 week Jocelyn Yeboah MD [facility] Jocelny Yeboah MD [facility] 2024-05-21 08:45:00 Age: [age] year old GA: [...] OB clinic or antepartum unit at the [facility] - POCT Urinalysis w/o Specific [place] 3. Other obesity affecting in third trimester Stable VLADIMIR in 2 weeks Future Appointments In 2 weeks Dorys Lemon DNP [facility], [facility] In 4 weeks Jocelyn Yeboah MD [facility] Jocelyn Yeboah MD [facility] 2024-05-01 09:15:00 Age: [age] year old GA: [...] On- call - POCT Urinalysis w/o Specific [place] - TDAP VACCINE, >10 YRS, IM 3. Need for Tdap vaccination - TDAP VACCINE, >10 YRS, IM 4. Other obesity affecting in second trimester - Weight gain stable VLADIMIR in 2 weeks or PRN Future Appointments In 2 weeks Jocelyn Yeboah MD [facility] Jocelyn Yeboah MD [facility] 2024-04-29 09:08:16 Patient notified rx for vitamins sent to pharmacy on file. No further complaints or concerns. Meghana Nava RN 04/29/2024 9:13 AM [facility] 2024-04-08 09:45:00 Gave pt 50 Glucola - No red dye allergy- No issues Pt started @ 0942 Pt ended @ 0943 Will draw pt @ 1043 [facility] 2024-04-08 09:45:00 Images from the original note were not included. Venipuncture collection performed by clean technique on the right anticubitus. Total of 1 attempts were made. Slight pressure and a bandage/dressing were applied to the site(s). The patient experienced no complications. The following specimens were processed according to instructions and sent to [facility] laboratories per lab order on 04/08/2024 : LT BLUE SST 2 RED 1 LAV 2 PPT DK GREEN (LiHep) DK GREEN (SodH) [place] DK BLUE (K2) DK BLUE (S) ACD Blood Culture NIPT/NTD T [facility] [place] 2024-04-03 16:00:00 Age: [age] year old GA: 25w3d 1. High-risk in second trimester 2. 25 weeks gestation of - doing well -28 weeks labs in 1-3 weks - POCT Urinalysis w/o Specific [place] - ADC or [place] Only - Rpr; Future - Cbc with Diff; Future - Glucose 1 Hour Post Prandial; Future - Workup, Blood Bank; Future - HIV 1/2 Ag-Ab with Reflex; Future 3. Other obesity affecting in second trimester Weight stable VLADIMIR in 3 weeks or PRN Jocelyn Yeboah MD T [facility] [place] 2024-03-06 11:15:00 Age: [age] year old GA: 21w3d 1. High-risk in second trimester 2. 21 weeks gestation of - dizzy spells have improved/resolved since she starting wearing compression socks and keeping adequately hydrated - Anatomy scan scheduled for this monday - POCT Urinalysis w/o Specific [place] 3. Other obesity affecting in first trimester - Weight gain stable VLADIMIR in 4 weeks or PRN Jocelyn Yeboah MD T [facility] [place] 2024-02-07 12:15:00 Images from the original note were not included. Venipuncture collection performed by clean technique on the right anticubitus. Total of 1 attempts were made. Slight pressure and a bandage/dressing were applied to the site(s). The patient experienced no complications. The following specimens were processed according to instructions and sent to [facility] laboratories per lab order on 02/07/2024 : LT BLUE SST 1 RED LAV PPT DK GREEN (LiHep) DK GREEN (SodH) [place] DK BLUE (K2) DK BLUE (S) ACD Blood Culture NIPT/NTD [facility] [place] 2024-02-07 11:00:00 Age: [age] year old GA: [...] MEDICINE ULTRASOUND - POCT Urinalysis w/o Specific [place] - Alpha Fetoprotein-Maternal Ser; Future 3. Other obesity affecting in first trimester 4. BMI 38.0-38.9,adult - CONSULT MATERNAL MEDICINE ULTRASOUND - POCT Urinalysis w/o Specific [place] - Alpha Fetoprotein-Maternal Ser; Future VLADIMIR in 4 weeks or PRN Jocelyn Yeboah MD [facility] [place] 2024-01-19 15:41:53 Images from the original note were not included. David results received via fax. Spoke with patient, name and verified. Patient informed of results excluding gender and verbalized understanding. Results signed, will scan and upload a copy to [employer]. Sue Soler MA [facility] [place] 2024-01-18 10:43:05 Fax received from [employer] informing us that due to patients insurance, they have changed the Horizon panel from 14 to 4. No further action required. Sue Soler MA [facility] [place] 2024-01-10 12:00:00 DAVID KIT: TRK# [id number] Tala Reyes 01/10/2024 12:08 PM [facility] Tala Reyes [facility] [place] 2024-01-10 11:00:00 Age: [age] year old GA: 13w3d 1. High-risk in second trimester 2. 13 weeks gestation of - no concerns -NIPT kit provided 3. Other obesity affecting in first trimester 4. BMI 37.0-37.9, adult - Stable weight VLADIMIR in 4 weeks Jocelyn Yeboah MD [facility] 2024-01-03 08:00:00 Images from the original note were not included. Venipuncture collection performed by clean technique on the left anticubitus. Total of 1 attempts were made. Slight pressure and a bandage/dressing were applied to the site(s). The patient experienced no complications. The following specimens were processed according to instructions and sent to [facility] laboratories per lab order on 01/03/2024 : [...] Urine Culture 1 Aptima tube Other urine [facility] 2023-12-13 14:30:00 Age: [age] year old GA: 9w3d Latisha Kumar is 18 year old at 11w2 by LMP presents for Initial OB visit today. She reports that she was seen at [facility] on 11/15 for abdominal pain and [...] schedule and that I deliver here at [facility]. I discussed that I have two partners, Dr. Manzanares and Dr. Jaimes and that they may deliver her or take care of her during her . I discussed that at [facility] we do not have a NICU, and that high risk pregnancies or deliveries less than 36 weeks will be transferred to [place]. All questions were answered. NOB labs today precautions reviewed Encouraged to call if have any additional questions or concerns. Plan: Workup, Blood Bank, Hcv Antibody, Cbc with Diff, HIV 1/2 Ag-Ab with Reflex, VZV Antibody Screen, Gc & Chlamydia Amplified Assay, Trichomonas Amplified Assay, Rubella Screen IgG, [facility] or [place] Only - Rpr, Hepatitis B Surface Antigen, Urine Culture, Urine Drug (Immunoassay) - Comprehensive Drug Screen, POCT Test, POCT Urinalysis w/o Specific [place], Glycosylated Hemoglobin (A1C) Other obesity affecting in first trimester BMI 30.0-30.9,adult - reviewed weight gain for her BMI - Weight gain 11- 20lbs Encounter to determine viability of , single or unspecified fetus Plan: OB Ultrasound Transvaginal [facility]
[2025-08-09] MEDS ORDERED: ONDANSETRON 4 MG/2 ML VIAL ONE (08:08)
[2025-08-09] MEDS ORDERED: NA CHLORIDE 0.9% 1,000 ML ONE (08:09)
[2025-08-09 08:44] LABS: Absolute Lymphocytes (CBC) 0.8 K/uL (0.7-4.9); Hematocrit 41.3 % (36.0-45.0); Hemoglobin 13.6 g/dL (12.0-15.0); MCH 26.4 pg (27.0-35.0); MCHC 33.0 g/dL (32.0-36.0); MCV 79.8 fL (80-100); MPV 7.6 fL (7.6-11.3); Nucleated RBC Absolute Count 0.0 (0-0); Nucleated Red Blood Cells % 0.0 % (0-0); RBC Red Blood Cell Count 5.18 M/uL (3.86-4.86); White Blood Count 12.70 thou/uL (4.3-10.9)
[2025-08-09 08:49] LABS: Urine Crystals Unidentified Few /HPF (None Seen); Urine Culture Reflex Order REFLEXED; Urine Microscopic Reflex YN ORDER UMIC; Urine WBC Clump Rare /HPF (None Seen); Urine Yeast (Budding) Trace /HPF (None Seen)
[2025-08-09 09:03] LABS: Albumin 3.0 g/dL (3.4-5.0); Albumin/Globulin Ratio 0.8 (1.1-1.8); Alkaline Phosphatase 129 U/L (45-117); Anion Gap 7.8 mEq/L (5.0-15.0); BUN Blood Urea Nitrogen 11 mg/dL (7-18); Globulin 4.0 g/dL (2.3-3.5); Glucose Level 121 mg/dL (74-106); Lipase 14 U/L (13-75); Potassium 3.8 mEq/L (3.5-5.1)
[2025-08-09 09:08] LABS: ALT/SGPT < 14 U/L (13-56); AST/SGOT < 10 U/L (15-37)
--- NOTE | 2025-08-09 09:45 | RAD REPORT ---
EXAMINATION: CT ABDOMEN AND PELVIS WITH CONTRAST CLINICAL INDICATION: Abdominal pain TECHNIQUE: CT abdomen and pelvis was performed, after the administration of 100 cc Isovue-300.. Sagit jose and coronal reconstructions were obtained. One or more of the following dose reduction techniques were used: Automated exposure control, adjustment of the mA and kV according to patient si ze, and iterative reconstruction. Unless otherwise specified, incidental findings do not require dedicated imaging follow-up. [id number]. Oral contrast was not given which limits evaluation of bowel and appendix. COMPARISON: .November 2024 FINDINGS: Cholecystectomy. Liver, spleen, pancreas, adrenals and kidneys appear unremarkable No evidence of diverticulitis. Mild thickening wall right colon Normal appendix. 2 cm left ovarian simple cyst is benign. No follow-up imaging recommended.. No significant free fluid . Small umbilical hernia : IMPRESSION: Mild thickening wall right colon probably a mild colitis
[2025-08-09] MEDS ORDERED: Levofloxacin500mg IV 500 MG/100 ML BAG IV ONE (10:09)
--- NOTE | 2025-08-09 10:20 | EDPHYS ---
Physician Documentation [facility] Name: Corrie Florian Age: 20 yrs Sex: Female : 2005 Arrival Date: 08/09/2025 Time: 07:51 Bed 7 Private MD: ED Physician Halley Abernathy HPI: 08/09 08:31 This 20 yrs old Female presents to ER via Ambulatory with complaints of Abdominal Pain, sp3 Diarrhea. 08:31 20-year-old female with no past medical history, status post cholecystectomy last year sp3 now presents to the ED with chief complaint diffuse abdominal pain, vomiting and diarrhea over the last 24 to 48 hours. Patient states she has had watery diarrhea with mucus x 5 in the last 24 hours. Emesis x 3 nonbloody or coffee-ground emesis. Patient denies headache, URI symptoms, fever, neck pain, chest pain, shortness of breath, , trauma, known bad food, known sick contacts, or any other signs or symptoms on ROS at this time.. [employer]: 08:11 LMP 07/26/2025, unknown cm10 Historical: - Allergies: 08:03 Amoxicillin; cm10 08:03 nasal spray-unkown; cm10 - PMHx: 08:11 None; cm10 - PSHx: 08:03 septum repair; Tonsillectomy; cm10 08:11 Cholecystectomy; cm10 - Immunization history:: Adult Immunizations up to date. - Infectious Disease History:: Denies. - Social history:: Smoking status: Patient denies any tobacco usage or history of. ROS: 08:33 Constitutional: Negative for fever, chills, and weight loss, Eyes: Negative for injury, sp3 pain, redness, and discharge, ENT: Negative for injury, pain, and discharge, Neck: Negative for injury, pain, and swelling, Cardiovascular: Negative for chest pain, palpitations, and edema, Respiratory: Negative for shortness of breath, cough, wheezing, and pleuritic chest pain, Back: Negative for injury and pain, MS/Extremity: Negative for injury and deformity, Skin: Negative for injury, rash, and discoloration, Neuro: Negative for headache, weakness, numbness, tingling, and seizure, Psych: Negative for depression, anxiety, suicide ideation, homicidal ideation, and hallucinations, Allergy/Immunology: Negative for hives, rash, and allergies, 08:33 All other systems are negative, Exam: 08:39 Constitutional: This is a well developed, well nourished patient who is awake, alert, sp3 and in no acute distress. Head/Face: Normocephalic, atraumatic. Eyes: Pupils equal round and reactive to light, extra-ocular motions intact. Lids and lashes normal. Conjunctiva and sclera are non-icteric and not injected. Cornea within normal limits. Periorbital areas with no swelling, redness, or edema. Neck: Trachea midline, no thyromegaly or masses palpated, and no cervical lymphadenopathy. Supple, full range of motion without nuchal rigidity, or vertebral point tenderness. No Meningismus. Chest/axilla: Normal chest wall appearance and motion. Nontender with no deformity. No lesions are appreciated. Respiratory: Lungs have equal breath sounds bilaterally, clear to auscultation and percussion. No rales, rhonchi or wheezes noted. No increased work of breathing, no retractions or nasal flaring. Back: No spinal tenderness. No costovertebral tenderness. Full range of motion. Skin: Warm, dry with normal turgor. Normal color with no rashes, no lesions, and no evidence of cellulitis. MS/ Extremity: Pulses equal, no cyanosis. Neurovascular intact. Full, normal range of motion. Neuro: Awake and alert, GCS 15, oriented to person, place, time, and situation. Cranial nerves II-XII grossly intact. Motor strength 5/5 in all extremities. Sensory grossly intact. Cerebellar exam normal. Normal gait. Psych: Awake, alert, with orientation to person, place and time. Behavior, mood, and affect are within normal limits. 08:39 Cardiovascular: Rate: tachycardic, 08:39 Abdomen/GI: Diffuse abdominal pain to palpation without peritoneal signs, rebound or guarding., Vital Signs: 08:11 BP 114 / 73; Pulse 125; Resp 17; Temp 98.2(O); Pulse Ox 97% on R/A; Weight 113.4 kg; cm10 Height 5 ft. 3 in. ; Pain 7/10; 09:41 BP 105 / 67; Pulse 100; Resp 17; Pulse Ox 100% on R/A; cm10 11:25 BP 104 / 76; Pulse 100; Resp 16; Pulse Ox 96% ; cm10 08:11 Body Mass Index 44.29 (113.40 kg, 160.02 cm) cm10 08:11 Pain Scale: Adult cm10 MDM: 08:02 Medical Screening Exam initiated sp3 08:43 Data reviewed: vital signs, nurses notes, old medical records, lab test result(s), sp3 radiologic studies. ED course: 20-year-old female with diffuse abdominal pain, vomiting and diarrhea and tachycardia. Differential diagnosis includes gastroenteritis, dehydration, lactic acidosis, other surgical pathology, among others. Workup will include CT scan of the abdomen pelvis, general labs, lactate, UA, hCG, and treatment with IV fluids and ondansetron. Disposition pending workup and patient course.. 10:18 ED course: CT demonstrates colitis. Labs also demonstrate mild bump in WBC count as sp3 well as UTI. Will treat with Levaquin and Flagyl and follow-up to PCP.. 08/09 08:10 Order name: CBC with Diff sp3 08/09 08:10 Order name: CMP; Complete Time: 09:49 sp3 08/09 08:10 Order name: Lipase; Complete Time: 09:49 sp3 08/09 08:10 Order name: Test, Urine; Complete Time: 09:49 sp3 08/09 08:10 Order name: UA Rfx [place] Cult if indicated; Complete Time: 09:49 sp3 08/09 08:13 Order name: Lactate w/ 2H reflex if indic.; Complete Time: 09:49 sp3 08/09 08:53 Order name: Urine Culture EDMS 08/09 08:53 Order name: CBC Smear Scan EDMS 08/09 08:10 Order name: CT Abd/Pelvis - IV Contrast Only; Complete Time: 09:49 sp3 08/09 08:10 Order name: IV Saline Lock; Complete Time: 08:38 sp3 08/09 08:10 Order name: Labs collected and sent; Complete Time: 08:38 sp3 Administered Medications: 08:38 Drug: NS 0.9% IV 1000 ml IV at 1 bolus Per protocol; to be given as a bolus over 60 cm10 minutes Route: IV; Rate: 1 bolus; Site: right antecubital; 09:38 Follow up: Response: No adverse reaction; IV Status: Completed infusion; IV Intake: cm10 1000ml 08:39 Drug: Ondansetron IVP 4 mg IVP once; over 2 minutes Route: IVP; Site: right antecubital;cm10 09:30 Follow up: Response: No adverse reaction; Nausea is decreased cm10 10:15 Drug: levofloxacin IVPB 500 mg 100 ml IVPB once over 60 mins Volume: 100 ml; Route: cm10 IVPB; Infused Over: 60 mins; Site: right antecubital; 11:15 Follow up: Response: No adverse reaction; IV Status: Completed infusion; IV Intake: cm10 100ml Disposition Summary: 08/09/25 10:19 Discharge Ordered Notes: Location: Home sp3 Condition: Stable sp3 Diagnosis - Gastroenteritis, UTI, abdominal pain sp3 Followup: sp3 - With: Private Physician - When: Upon discharge from the Emergency Department - Reason: Continuance of care Discharge Instructions: - Discharge Summary Sheet sp3 - Diarrhea, Adult sp3 - Urinary Tract Infection, Adult sp3 Forms: - Medication Reconciliation Form sp3 - Antibiotic Education sp3 - Prescription Opioid Use sp3 - Patient Portal Instructions sp3 - Leadership Thank You Letter sp3 Prescriptions: - Flagyl 500 mg Oral tablet - take 1 tablet ORAL route every 8 hours for 7 days; 21 tablet; Refills: 0, sp3 Product Selection Permitted - levofloxacin 500 mg Oral tablet - take 1 tablet ORAL route once daily for 6 days; 6 tablet; Refills: 0, Product sp3 Selection Permitted Signatures: Dispatcher [employer] EDMS Halley Abernathy MD MD sp3 Norma Colon RN RN cm10 Corrections: (The following items were deleted from the chart) 08:10 08:10 CBC+H.LAB.BRZ ordered. EDMS EDMS 08:10 08:10 COMPREHENSIVE METABOLIC PANEL+C.LAB.BRZ ordered. EDMS EDMS 08:10 08:10 LIPASE+C.LAB.BRZ ordered. EDMS EDMS 08:10 08:10 Test, Urine+UC.LAB.BRZ ordered. EDMS EDMS 08:10 08:10 UA Rfx [place] Cult if indicated+U.LAB.BRZ ordered. EDMS EDMS 08:11 08:10 Abdomen Pelvis W Con+CT.RAD.BRZ ordered. EDMS EDMS
--- NOTE | 2025-08-09 10:20 | ER ---
Nurse's Notes [facility] Name: Corrie Florian Age: 20 yrs Sex: Female : 2005 Arrival Date: 08/09/2025 Time: 07:51 Bed 7 Private MD: Diagnosis: Gastroenteritis, UTI, abdominal pain Presentation: 08/09 08:11 Chief complaint: Patient states: Lower abdominal cramping with vomiting and diarrhea cm10 onset last night. Coronavirus screen: Client denies travel out of the [place] in the last 14 days. Ebola Screen: Patient denies travel to an Ebola-affected area in the 21 days before illness onset. Initial Sepsis Screen: Does the patient meet any 2 criteria? HR > 90 bpm. Does the patient have a suspected source of infection? No. Patient's initial sepsis screen is negative. Risk Assessment: Do you want to hurt yourself or someone else? Patient reports no desire to harm self or others. Onset of symptoms was August 09, 2025. 08:11 Method Of Arrival: Ambulatory cm10 08:11 Acuity: RADHA 3 cm10 Triage Assessment: 08:12 General: Appears in no apparent distress. comfortable, Behavior is cooperative, cm10 anxious. Pain: Complains of pain in right lower quadrant and left lower quadrant Pain currently is 7 out of 10 on a pain scale. Quality of pain is described as crampy. Neuro: No deficits noted. Level of Consciousness is awake, alert, obeys commands, Oriented to person, place, time, situation, Appropriate for age. Respiratory: No deficits noted. Airway is patent Respiratory effort is even, unlabored, Respiratory pattern is regular, symmetrical. GI: Reports lower abdominal pain, cramping, diarrhea, nausea, vomiting. Musculoskeletal: Range of motion: intact in all extremities. 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 - Infectious Disease History:: Denies. - Social history:: Smoking status: Patient denies any tobacco usage or history of. Screenin:[address] [facility] ED Fall Risk Assessment (Adult) History of falling in the last 3 months, cm10 including since admission No falls in past 3 months (0 pts) Confusion or Disorientation No (0 pts) Intoxicated or Sedated No (0 pts) Impaired Gait No (0 pts) Mobility Assist Device Used No (0 pt) Altered Elimination No (0 pt) Score/Fall Risk Level 0 - 2 = Low Risk Oriented to surroundings, Maintained a safe environment, Hourly rounding (assess needs \T\ fall precautionary measures) done. Abuse screen: Denies threats or abuse. Denies injuries from another. Nutritional screening: No deficits noted. Tuberculosis screening: No symptoms or risk factors identified. Assessment: 09:37 Reassessment: Patient appears in no apparent distress at this time. Patient and/or cm10 family updated on plan of care and expected duration. Pain level reassessed. Patient is alert, oriented x 3, equal unlabored respirations, skin warm/dry/pink. 10:20 Reassessment: Pending discharge due to IV abx. cm10 Vital Signs: 08:11 BP 114 / 73; Pulse 125; Resp 17; Temp 98.2(O); Pulse Ox 97% on R/A; Weight 113.4 kg; cm10 Height 5 ft. 3 in. ; Pain 7/10; 09:41 BP 105 / 67; Pulse 100; Resp 17; Pulse Ox 100% on R/A; cm10 11:25 BP 104 / 76; Pulse 100; Resp 16; Pulse Ox 96% ; cm10 08:11 Body Mass Index 44.29 (113.40 kg, 160.02 cm) cm10 08:11 Pain Scale: Adult cm10 ED Course: 07:58 Patient arrived in ED. ts1 07:59 Halley Abernathy MD is Attending Physician. sp3 08:01 Norma Colon, JESSE is Primary Nurse. cm10 08:03 Arm band placed on right wrist. Patient placed in an exam room, on a stretcher. cm10 08:12 Triage completed. cm10 08:38 Lactate w/ 2H reflex if indic. Sent. cm10 08:38 UA Rfx Wicho Cult if indicated Sent. cm10 08:38 CBC with Diff Sent. cm10 08:38 CMP Sent. cm10 08:38 Lipase Sent. cm10 08:38 Test, Urine Sent. cm10 08:39 Patient has correct armband on for positive identification. Bed in low position. Call cm10 light in reach. Side rails up X 1. Pulse ox on. NIBP on. 08:39 Initial lab(s) drawn, by me, sent to lab. Urine collected: clean catch specimen, cm10 cloudy. Inserted saline lock: 20 gauge in right antecubital area, using aseptic technique. Blood collected. Flushed with 10 mL NS. :26 CT Abd/Pelvis - IV Contrast Only In Process Unspecified. EDMS 11:26 Provided Education on: Follow-up instructions. cm10 11:26 No provider procedures requiring assistance completed. IV discontinued, intact, cm10 bleeding controlled, No redness/swelling at site. Pressure dressing applied. Administered Medications: 08:38 Drug: NS 0.9% IV 1000 ml IV at 1 bolus Per protocol; to be given as a bolus over 60 cm10 minutes Route: IV; Rate: 1 bolus; Site: right antecubital; :38 Follow up: Response: No adverse reaction; IV Status: Completed infusion; IV Intake: cm10 1000ml 08:39 Drug: Ondansetron IVP 4 mg IVP once; over 2 minutes Route: IVP; Site: right antecubital;cm10 09:30 Follow up: Response: No adverse reaction; Nausea is decreased cm10 10:15 Drug: levofloxacin IVPB 500 mg 100 ml IVPB once over 60 mins Volume: 100 ml; Route: cm10 IVPB; Infused Over: 60 mins; Site: right antecubital; 11:15 Follow up: Response: No adverse reaction; IV Status: Completed infusion; IV Intake: cm10 100ml Medication: 08:39 VIS not applicable for this client. cm10 Intake: 09:38 IV: 1000ml; Total: 1000ml. cm10 11:15 IV: 100ml; Total: 1100ml. cm10 Outcome: 10:19 Discharge ordered by . sp3 11:26 Discharged to home ambulatory, cm10 11:26 Condition: stable 11:26 Discharge instructions given to patient, Instructed on discharge instructions, follow up and referral plans. medication usage, Demonstrated understanding of instructions, follow-up care, medications, Prescriptions given X 2, 11:28 Patient left the ED. cm10 Signatures: Dispatcher [employer] EDHalley Nguyen MD MD sp3 Nuris Avilez PAS PAS ts1 Norma Colon, RN RN cm10
[2025-08-09 10:51] LABS: Anisocytosis SLIGHT; Blood Morphology Comment NOTED (NOT SEEN); Stomatocytes 1+; White Blood Cell Scan OK (OK)
[2025-08-09 11:32] VITALS: TEMP 98.2
[2025-08-09 11:36] VITALS: BP 104/76; O2SAT 96
== END 2025-08-09 11:28 | disposition home or self-care (01) ==
LOC: ER 07:51
DX: K52.9 Noninfective gastroenteritis and colitis, unspecified (principal); N39.0 Urinary tract infection, site not specified
CPT/HCPCS: 36415; 74177; 80053; 81001; 81025; 83605; 83690; 85025; 87077; 87086; 87088; 87186; 96361; 96365; 96375; 99284; J2405; J7030; Q9967